=== PATIENT | female | born 1990 | race Caucasian/White ===

== ENCOUNTER 2023-08-12 20:22 | Outpatient (REF) | payer OTHER, SELFPAY ==
[2023-08-16 11:11] LABS: Age Gdln ACOG Testing Note (.); HPV Aptima Negative (Negative); IGP, Aptima HPV, rfx 16/18,45 Note (.)
== END 2023-08-12 20:23 | disposition home or self-care (01) ==
LOC: LAB 20:22
PROVIDERS: Visit Provider Obstetrics & Gynecology
DX: Z01.419 Encounter for gynecological examination (general) (routine) without abnormal findings (principal)
CPT/HCPCS: 87624; G0145

== ENCOUNTER 2023-08-20 14:59 | Outpatient (OUT) | payer OTHER, SELFPAY ==
--- NOTE | 2023-08-20 15:08 | US_ITS ---
[address] [address] Patient Name: RAJ WAITE MRN: [id number] date: 1990 Sex: F Assigned Patient Location: [facility] Current Patient Location: [facility] Accession/Order Number: [id number] Exam Date: 08/20/2023 15:08 Report Date: 08/20/2023 15:39 At the request of: AROLDO JOHNSON Procedure: US pelvis transvaginal EXAMINATION: US pelvis transvaginal HISTORY: PELVIC PAIN IUD PLACEMENT COMPARISON: No relevant comparison available. FINDINGS: The uterus is normal in size and contour measuring 6.6 x 3.5 x 5.2 cm, retroverted, retroflexed. Heterogeneous echotexture with no focal mass The endometrium measures 4 mm, normal. Linear hyperechogenicity within the endometrial cavity with ringdown artifact consistent with a normally positioned IUD The right ovary is normal measuring 2.9 x 1.3 x 2.3 cm. Color and Doppler flow The left ovary is normal measuring 2.8 x 1.4 x 3.0 cm. Normal color Doppler flow US/US pelvis transvaginal IMPRESSION: Normal position of IUD Electronically authenticated by: EDWARDO CHARLTON Date: 08/20/2023 15:39
== END 2023-08-20 15:00 | disposition home or self-care (01) ==
LOC: NOMS 14:59
PROVIDERS: Visit Provider Obstetrics & Gynecology
DX: N94.6 Dysmenorrhea, unspecified (principal); R10.2 Pelvic and perineal pain; Z97.5 Presence of (intrauterine) contraceptive device
CPT/HCPCS: 76830

== ENCOUNTER 2024-09-07 20:42 | Outpatient (REF) | payer OTHER, SELFPAY ==
--- OUTSIDE RECORDS SUMMARY | 2024-09-07 20:46 | XMS_ITS | CCD ---
Author Organization [facility] Care Team Providers Care Zoology Technical Officer Name Role Phone DR AROLDO HENDRIX Admitting Unavailable RUMA, DR KENDRICK Attending Unavailable RUMA, DR KENDRICK Consulting Unavailable RUMA, DR KENDRICK Admitting Unavailable RUMA, DR KENDRICK Attending Unavailable RUMA, DR KENDRICK Consulting Unavailable AROLDO HENDRIX Attending Unavailable SUHA Cleary Attending Provider SUHA Landa Attending Provider Annabella Landa APRN Attending Provider [phone] Irma Perez MD Primary Care Provider [phone] Annabella Landa APRN Attending Provider Irma Perez MD [facility] Care Provider Elenita Cleary APRN Attending Provider [phone] Elenita Cleary Admitting Unavailable Elenita Cleary Attending Unavailable Annabella Landa Admitting Unavailable Annabella Landa Attending Unavailable Irma Perez Primary Care Unavailable Annabella Landa Admitting Unavailable Annabella Landa Attending Unavailable Elenita Cleary Attending Unavailable Elenita Cleary Admitting Unavailable Irma Perez MD Primary Care Provider [phone] Allergies Allergy Classification Reported Allergen(s) Allergy Type Date of Onset Reaction(s) Facility (1 source) Penicillin Drug Allergy 5 [facility] Repository (3 sources) nickel sulfate Drug Allergy 9 [facility] Work Phone: (3 sources) Penicillin G Drug Allergy 4 [facility] (3 sources) Penicillins Drug Intolerance 9 [facility] Medications Current Medications Medication Drug Class(es) Dates Sig (Normalized) Sig (Original) ascorbic acid 100 mg chewable tablet (3 sources) Vitamin C ascorbic acid (Vitamin C) 100 MG chewable tablet Vitamin C Active ascorbic acid 60 mg / beta carotene 5000 unt / copper sulfate 40 mg / dl-alpha tocopheryl acetate 30 unt / sodium selenite 0.04 mg / zinc oxide 40 mg oral tablet (3 sources) Vitamin C Multiple Vitamin (Multivitamin Adult) tablet 1 (one) time each day at the same time Active calcium citrate 1500 mg / cholecalciferol 200 unt oral tablet (3 sources) Vitamin D Calcium Citrate-Vitamin D (Calcium + D) 315-5 MG-MCG tablet Calcium + D Active fluconazole 150 mg oral tablet (6 sources) Azole Antifungal Start: 08-22-2024 take 1 tablet by mouth once daily Fluconazole 150 mg tablet Active 150 MG PO Daily 2 August 22, 2024 12:00am May repeat dose in 3 days if symptoms persist. Start: 07-11-2024 End: 08-22-2024 Fluconazole 150 mg tablet Di scontinued 150 MG PO Q3D 2 0 July 11, 2024 1:00am August 22, 2024 12:11pm october repeat x 1 in 3 days if needed levonorgestrel 0.903683 mg/hr intrauterine system (11 sources) Progestin, Progestin-containing Intrauterine Device Start: 11-18-2023 Levonorgestrel (Mirena) 21 mcg/24 hr (8 yrs) 52 mg intrauterine device Active INTRAUTERI November 18, 2023 12:00am Levonorgestrel ( Mirena, 52 MG,) 20 MCG/DAY intrauterine device as directed Intrauterine Active metroNIDAZOLE 500 mg oral tablet (2 sources) Nitroimidazole Antimicrobial Start: 09-07-2024 End: 09-14-2024 take 1 tablet by mouth in the morning metroNIDAZOLE (Flagyl) 500 MG tablet Indications: Bacterial vaginosis Take 1 tablet (500 mg) by mouth in the morning and 1 tablet (500 mg) before bedtime. Do all this for 7 days. Do not drink alcohol while taking this medication. 14 tablet 09/07/2024 09/14/2024 Active Multiple Vitamins-Minerals (Multivitamin Adult, Minerals,) tablet (3 sources) Multiple Vitamins-Minerals (Multivitamin Adult, Minerals,) tablet Take by mouth Daily Active Completed/Discontinued Medications Medication Drug Class(es) Dates Sig (Normalized) Sig (Original) nitrofurantoin, macrocrystals 25 mg / nitrofurantoin, monohydrate 75 mg oral capsule (8 sources) Nitrofuran Antibacterial Start: 11-18-2023 End: 12-28-2023 take 1 capsule by mouth every twelve hours at mealtime Nitrofurantoin Monohyd/M-Cryst (Macrobid) 100 mg capsule Discontinued 100 MG PO Every 12 hours 14 November 18, 2023 12:00am December 28, 2023 2:02pm must administer with a meal/food phenazopyridine hydrochloride 200 mg oral tablet (6 sources) Start: 12-28-2023 End: 07-11-2024 take 1 tablet by mouth three times daily as needed for pain Phenazopyridine (Pyridium) 200 mg tablet Discontinued 200 MG PO Three times daily as needed for pain 9 December 28, 2023 12:00am July 11, 2024 3:16pm sulfamethoxazole 800 mg / trimethoprim 160 mg oral tablet (6 sources) Dihydrofolate Reductase Inhibitor Antibacterial, Sulfonamide Antimicrobial Start: 12-28-2023 End: 07-11-2024 take 1 tablet by mouth every twelve hours Sulfamethoxazole-Tr imethoprim 800-160 mg tablet Discontinued 1 TAB PO Every 12 hours 14 December 28, 2023 12:00am July 11, 2024 3:16pm Problems Active Problems Problem Classification Problem Date Documented Date Episodic/Chronic Immunizations and screening for infectious disease (4 sources) Encounter for screening for human papillomavirus (HPV); Translations: [Encounter for screening for infections with a predominantly sexual mode of transmission] Onset: 09-01-2021 09-07-2024 Episodic Inflammatory diseases of female pelvic organs (2 sources) Bacterial vaginosis; Translations: [Acute vaginitis] 09-07-2024 Episodic Mycoses (2 sources) Mycosis; Translations: [Candidiasis, unspecified] 09-07-2024 Episodic Other female genital disorders (10 sources) Other specified noninflammatory disorders of vagina; Translations: [Leukorrhea, not specified as infective] Onset: 08-29-2021 Episodic Other female genital disorders (3 sources) Vaginal discharge; Translations: [Other specified noninflammatory disorders of vagina] 07-11-2024 Episodic Other screening for suspected conditions (not mental disorders or infectious disease) (4 sources) Encounter for screening for malignant neoplasm of cervix; Translations: [ENC SCREENING MALIG NEOPLASM CERV] Onset: 07-16-2022 Episodic Urinary tract infections (13 sources) Urinary tract infectious disease; Translations: [Urinary tract infection, site not specified] Onset: 07-11-2024 11-18-2023 Episodic Past or Other Problems Problem Classification Problem Date Documented Da te Episodic/Chronic Genitourinary symptoms and ill-defined conditions (6 sources) Unspecified abnormal findings in urine; Translations: [Other nonspecific findings on examination of urine] Onset: 11-18-2023 11-18-2023 Episodic Results Test Name Value Interpretation Reference Range Facility Urinalysis macro (dipstick) panel (U)on 09-07-2024 Bilirubin, UA Negative Negative - 4(70) +++ mg/dL [facility] Blood, UA Positive Negative - 50 Hema/mcL [facility] Comment on above: trace Clarity, UA Clear [facility] Color, UA Yellow [facility] Glucose, UA Negative Negative - 2000(110) ++++ mg/dL [facility] Interpretation and review of laboratory results Normal [facility] Ketones, UA Negative Negative - 160(16) ++++ mg/dL [facility] Leukocytes, UA Negative Negative - 500+++ Francesca/mcL [facility] Nitrite, UA Negative Negative - Positive [facility] pH, UA 5.5 5 - 9 [facility] Protein, UA Negative Negative - 2000(20) ++++ mg/dL [facility] Spec Grav, UA 1.02 1 - 1.03 [facility] Urobilinogen, UA 0.2 0.2 - 12 mg/dL [facility] Vaginitis Plus (VG+)on 08-22 Atopobium Vaginae Low - 0 Normal . [facility] Comment on above: Result Comment: This test was developed and its performance characteristics determined by [employer]. It has not been cleared or approved by the Food and Drug Administration. Performed By: #### V AGINITIS+ #### [facility] , BVAB2 Low - 0 Normal . [facility] Comment on above: Result Comment: This test was developed and its performance characteristics determined by [facility]. It has not been cleared or approved by the Food and Drug Administration. Performed By: #### V AGINITIS+ #### [facility] , Kitty Albicans, ANDRADE Negative Normal Negative [facility] Comment on above: Result Comment: This test was developed and its performance characteristics determined by [facility]. It has not been cleared or approved by the Food and Drug Administration. Performed By: #### V AGINITIS+ #### [facility] , Kitty Glabrata, ANDRADE Negative Normal Negative [facility] Comment on above: Result Comment: This test was developed and its performance characteristics determined by [facility]. It has not been cleared or approved by the Food and Drug Administration. PERFORMED BY: [place] [id number] [place] [address]PERATOR BRYAN JONES M.D. Performed By: #### V AGINITIS+ #### [facility] , Chlamydia Trachomotis, ANDRADE Negative Normal Negative [facility] Comment on above: Performed By: #### V AGINITIS+ #### [facility] , Megasphaera Low - 0 Normal . [facility] Comment on above: Result Comment: This test was developed and its performance characteristics determined by [facility]. It has not been cleared or approved by the Food and Drug Administration. Calculate total score by adding the 3 individual bacterial vaginosis (BV) marker scores together. Total score is interpreted as follows: Total score 0-1: Indicates the absence of BV. Total score 2: Indeterminate for BV. Additional clinical data should be evaluated to establish a diagnosis. Total score 3-6: Indicates the presence of BV. Performed By: #### V AGINITIS+ #### [facility] , Neisseria Gonorrhoeae, ANDRADE Negative Normal Negative [facility] Comment on above: Result Comment: Perf ormed at: =G - [facility] [address] [id number] Gis Software Engineer: Mary Jacinto MD, Phone: [phone] Performed By: #### V AGINITIS+ #### [facility] , Tric Vag ANDRADE Negative Normal Negative [facility] Comment on above: Performed By: #### V AGINITIS+ #### [facility] , Laboratory - Microbiology an d Antimicrobial susceptibilityOrdered By: Annabella Landa on 07-11-2024 N. gonorrhoeae DNA ANDRADE+probe Ql (Unsp spec) Negative Negative [facility] Comment on above: Performed at: [address] [id number] Director: Mary Jacinto MD, Phone: [phone] No Panel InformationOrdered By: Annabella Landa on 07-11-2024 Kitty albicans (ANDRADE) Negative Negative [facility] Comment on above: This test was develo ped and its performance characteristicsdetermined by [employer]. It has not been cleared orapproved by the Food and Drug Administration. Kitty glabrata (ANDRADE) Negative Negative [facility] Comment on above: This test was develo ped and its performance characteristicsdetermined by [employer]. It has not been cleared orapproved by the Food and Drug Administration. Chlamydia trachomatis (ANDRADE) (LAB) Negative Negative [facility] Trichomonas vaginalis (ANDRADE) Negative Negative [facility] Vaginal fluid Atopobium vagi kinga DNA detection by probe and target amplification methoOrdered By: Annabella Landa on 07-11-2024 A. vaginae DNA ANDRADE+probe Ql (Vag fld) Vaginal fluid Atopobium vaginae DNA detection by probe and target amplification metho . [facility] Comment on above: This test was develo ped and its performance characteristicsdetermined by [employer]. It has not been cleared orapproved by the Food and Drug Administration. Vaginal fluid Megasphaera sp ecies type 1 DNA detection by probe and target amplificatOrdered By: Annabella Landa on 07-11-2024 Megasphaera sp type 1 DNA ANDRADE+probe Ql (Vag fld) Vaginal fluid Megasphaera species type 1 DNA detection by probe and target amplificat . [facility] Comment on above: This test was develo ped and its performance characteristicsdetermined by [facility]. It has not been cleared orapproved by the Food and Drug Administration.Calculate total score by adding the 3 individual bacterialvaginosis (BV) marker scores together. Total score isinterpreted as follows:Total score 0-1: Indicates the absence of BV.Total score 2: Indeterminate for BV. Additional clinical data should be evaluated to establish a diagnosis.Total score 3-6: Indicates the presence of BV. Vaginal fluid bacterial vagi nosis associated bacterium 2 DNA detection by probe and tOrdered By: Annabella Landa on 07-11-2024 Bacterial vaginosis associated bacterium 2 DNA ANDRADE+probe Ql (Vag fld) Vaginal fluid bacterial vaginosis associated bacterium 2 DNA detection by probe and t . [facility] Comment on above: This test was develo ped and its performance characteristicsdetermined by [facility]. It has not been cleared orapproved by the Food and Drug Administration. Vaginitis Plus (VG+)on 07-11 Atopobium Vaginae Low - 0 Normal . [facility] Comment on above: Result Comment: This test was developed and its performance characteristics determined by [facility]. It has not been cleared or approved by the Food and Drug Administration. Performed By: #### V AGINITIS+ #### [facility] , BVAB2 Low - 0 Normal . [facility] Comment on above: Result Comment: This test was developed and its performance characteristics determined by [facility]. It has not been cleared or approved by the Food and Drug Administration. Performed By: #### V AGINITIS+ #### [facility] , Kitty Albicans, ANDRADE Negative Normal Negative [facility] Comment on above: Result Comment: This test was developed and its performance characteristics determined by [facility]. It has not been cleared or approved by the Food and Drug Administration. Performed By: #### V AGINITIS+ #### [facility] , Kitty Glabrata, ANDRADE Negative Normal Negative [facility] Comment on above: Result Comment: This test was developed and its performance characteristics determined by [facility]. It has not been cleared or approved by the Food and Drug Administration. PERFORMED BY: [place] [address] [place] [address] OPERATOR BRYAN JONES M.D. Performed By: #### V AGINITIS+ #### [facility] , Chlamydia Trachomotis, ANDRADE Negative Normal Negative [facility] Comment on above: Performed By: #### V AGINITIS+ #### [facility] , Megasphaera Low - 0 Normal . [facility] Comment on above: Result Comment: This test was developed and its performance characteristics determined by [facility]. It has not been cleared or approved by the Food and Drug Administration. Calculate total score by adding the 3 individual bacterial vaginosis (BV) marker scores together. Total score is interpreted as follows: Total score 0-1: Indicates the absence of BV. Total score 2: Indeterminate for BV. Additional clinical data should be evaluated to establish a diagnosis. Total score 3-6: Indicates the presence of BV. Performed By: #### V AGINITIS+ #### [facility] , Neisseria Gonorrhoeae, ANDRADE Negative Normal Negative [facility] Comment on above: Result Comment: Perf ormed at: =G - [facility] [id number] Gis Software Engineer: Mary Jacinto MD, Phone: [phone] Performed By: #### V AGINITIS+ #### [facility] , Tric Vag ANRDADE Negative Normal Negative [facility] Comment on above: Performed By: #### V AGINITIS+ #### [facility] , Urine Cultureon 12-28-2023 Bacteria identified Cx Nom (U) ORGANISM: Escherichia coli (O:ESCCOL) [place] Count >100,000 Aerobic APRIL Charge (NMIC56) SUSCEPTIBILITY ORGANISM: O:ESCCOL ANTIBIOTIC INTERPRETATION APRIL Amikacin S <16 Amoxacillin/K Clavulanate S <8 Ampicillin R >16 Ampicillin/Sulbactam I 1616/8 Aztreonam S <4 Cefazolin S <2 Cefepime S <2 Ceftazidime S <1 Ceftazidime/Avibactam S <4 Ceftolozane/Tazobactam S <2 Ceftriaxone S <1 Cefuroxime S <4 Ciprofloxacin S <0.25 Ertapenem S <0.5 Gentamicin S <2 Levofloxacin S <0.5 Meropenem S <1 Meropenem/Vaborbactam S <2 Nitrofurantoin S <32 Piperacillin/Tazobactam S <8 Tetracycline S <4 Tigecycline S <2 Tobramycin S <2 Trimethoprim/Sulfamethoxaz ole S <0.5 S = SUSCEPTIBLE I = INTERMEDIATE R = RESISTANT BLANK = DATA NOT AVAILABLE, OR DRUG NOT ADVISABLE OR TESTED R* = RESISTANCE DUE TO EXTENDED SPECTRUM BETA-LACTAMASES ESBL = EXTENDED SPECTRUM BETA-LACTAMASE TFG = THYMIDINE-DEPENDENT STRAIN KVNG = BETA-LACTAMASE POSITIVE IB = INDUCIBLE BETA-LACTAMASE. APPEARS IN PLACE OF 'S' WITH SPECIES KNOWN TO POSSESS INDUCIBLE BETA-LACTAMASES. POTENTIALLY THEY MAY BECOME RESISTANT TO ALL B-LACTAM DRUGS. PERFORMED BY: [place] [address]PERATOR JEANNETTE MARRERO M.D. Normal [facility] Comment on above: Performed By: #### C UU #### [address] Bacteria Vaginosis, NAAon Atopobium Vaginae Low - 0 Normal . [facility] Comment on above: Result Comment: This test was developed and its performance characteristics determined by [facility]. It has not been cleared or approved by the Food and Drug Administration. Performed By: #### C UU #### [place] [address] [place] #### VAGINOSIS #### [facility] , BVAB2 Low - 0 Normal . [facility] Comment on above: Result Comment: This test was developed and its performance characteristics determined by [facility]. It has not been cleared or approved by the Food and Drug Administration. Performed By: #### C UU #### [facility] [address] [place] [address] #### VAGINOSIS #### [facility] , Megasphaera Low - 0 Normal . [facility] Comment on above: Result Comment: This test was developed and its performance characteristics determined by [facility]. It has not been cleared or approved by the Food and Drug Administration. Calculate total score by adding the 3 individual bacterial vaginosis (BV) marker scores together. Total score is interpreted as follows: Total score 0-1: Indicates the absence of BV. Total score 2: Indeterminate for BV. Additional clinical data should be evaluated to establish a diagnosis. Total score 3-6: Indicates the presence of BV. Performed at: =[facility] [id number] Gis Software Engineer: Mary Jacinto MD, Phone: [phone] PERFORMED BY: [place] [address] OPERATOR JEANNETTE MARRERO M.D. Performed By: #### C UU #### [facility] [address] [place] [address] #### VAGINOSIS #### [facility] , Laboratory - Chemistry and C hemistry - challengeon 11-18-2023 Bilirubin Ql (U) Negative [facility] Glucose (U) [Mass/Vol] Negative [facility] Ketones Ql (U) Positive [facility] pH (U) 6.0 [pH] [facility] Specific gravity (U) [Rel density] 1.010 [facility] Urobilinogen (U) [Mass/Vol] 0.2 mg/dL [facility] Laboratory - Specimen inform ationon 11-18-2023 Appearance (U) cloudy [facility] Color (U) yellow [facility] Laboratory - Urinalysison Leukocyte esterase Test strip Ql (U) large [facility] Nitrite Ql (U) Negative [facility] Protein Ql (U) Negative [facility] No Panel Informationon 11-17 Urine Occult Blood trace [facility] Urine Cultureon 11-18-2023 Bacteria identified Cx Nom (U) ORGANISM: Escherichia coli (O:ESCCOL) [place] Count >100,000 Aerobic APRIL Charge (NMIC56) SUSCEPTIBILITY ORGANISM: O:ESCCOL ANTIBIOTIC INTERPRETATION APRIL Amikacin S <16 Amoxacillin/K Clavulanate S <8 Ampicillin S <8 Ampicillin/Sulbactam S <4 Aztreonam S <4 Cefazolin S <2 Cefepime S <2 Ceftazidime S <1 Ceftazidime/Avibactam S <4 Ceftolozane/Tazobactam S <2 Ceftriaxone S <1 Cefuroxime S <4 Ciprofloxacin S <0.25 Ertapenem S <0.5 Gentamicin S <2 Levofloxacin S <0.5 Meropenem S <1 Meropenem/Vaborbactam S <2 Nitrofurantoin S <32 Piperacillin/Tazobactam S <8 Tetracycline S <4 Tigecycline S <2 Tobramycin S <2 Trimethoprim/Sulfamethoxaz ole S <0.5 S = SUSCEPTIBLE I = INTERMEDIATE R = RESISTANT BLANK = DATA NOT AVAILABLE, OR DRUG NOT ADVISABLE OR TESTED R* = RESISTANCE DUE TO EXTENDED SPECTRUM BETA-LACTAMASES ESBL = EXTENDED SPECTRUM BETA-LACTAMASE TFG = THYMIDINE-DEPENDENT STRAIN KVNG = BETA-LACTAMASE POSITIVE IB = INDUCIBLE BETA-LACTAMASE. APPEARS IN PLACE OF 'S' WITH SPECIES KNOWN TO POSSESS INDUCIBLE BETA-LACTAMASES. POTENTIALLY THEY MAY BECOME RESISTANT TO ALL B-LACTAM DRUGS. PERFORMED BY: [place] [address]PERATOR JEANNETTE MARRERO M.D. Normal [facility] Comment on above: Performed By: #### C UU #### [place] [address] [place] #### VAGINOSIS #### [facility] , Urine culture routineOrdered By: Elenita Cleary on 11-18-2023 Bacteria identified Cx Nom (U) Escherichia coli Abnormal [facility] Vaginal fluid Atopobium vagi kinga DNA detection by probe and target amplification methoOrdered By: Elenita Cleary on 11-18-2023 A. vaginae DNA ANDRADE+probe Ql (Vag fld) Low - 0 Score . [facility] Comment on above: This test was develo ped and its performance characteristicsdetermined by [facility]. It has not been cleared orapproved by the Food and Drug Administration. Vaginal fluid Megasphaera sp ecies type 1 DNA detection by probe and target amplificatOrdered By: Elenita Cleary on 11-18-2023 Megasphaera sp type 1 DNA ANDRADE+probe Ql (Vag fld) Low - 0 Score . [facility] Comment on above: This test was develo ped and its performance characteristicsdetermined by [employer]. It has not been cleared orapproved by the Food and Drug Administration.Calculate total score by adding the 3 individual bacterialvaginosis (BV) marker scores together. Total score isinterpreted as follows:Total score 0-1: Indicates the absence of BV.Total score 2: Indeterminate for BV. Additional clinical data should be evaluated to establish a diagnosis.Total score 3-6: Indicates the presence of BV.Performed at: =[address] [id number] Director: Mary Jacinto MD, Phone: [phone] Vaginal fluid bacterial vagi nosis associated bacterium 2 DNA detection by probe and tOrdered By: Elenita Cleary on 11-18-2023 Bacterial vaginosis associated bacterium 2 DNA ANDRADE+probe Ql (Vag fld) Low - 0 Score . [facility] Comment on above: This test was develo ped and its performance characteristicsdetermined by [employer]. It has not been cleared orapproved by the Food and Drug Administration. PAP ACOG PANEL 2: 30 to 65on 07-23-2022 . . Normal [facility] Comment on above: Result Comment: Perf ormed at: WB Performed By: #### [id number] #### [facility] [address] [place] [address] Dr. Zheng Knowles Age Gdln ACOG Testing 30-65 Normal [facility] Comment on above: Performed By: #### [id number] #### [facility] [address] [place] [address] Dr. Zheng Knowles DIAGNOSIS: Comment Normal [facility] Comment on above: Result Comment: NEGA TIVE FOR INTRAEPITHELIAL LESION OR MALIGNANCY. Performed at: WB Performed By: #### [id number] #### [facility] [address] [place] [address] Dr. Zheng Knowles HPV Aptima Negative Normal Negative [facility] Comment on above: Result Comment: This nucleic acid amplification test detects fourteen high-risk HPV types (16,18,31,33,35,39,45,51,52,56,58,59,66,68) without differentiation. Performed at: =G Performed By: #### [id number] #### [facility] [address] [place] [address] Dr. Zheng Knowles HPV Genotype Reflex Comment Normal [facility] Comment on above: Result Comment: Crit eria not met, HPV Genotype not performed. Performed at: WB Performed By: #### [id number] #### [facility] [address] [place] [address] Dr. Zheng Knowles Methodology: Comment Normal [facility] Comment on above: Result Comment: This liquid based ThinPrep(R) pap test was screened with the use of an image guided system. Performed at: WB Performed By: #### [id number] #### [facility] [address] [place] [address] Dr. Zheng Knowles Note: Comment Normal [facility] Comment on above: Result Comment: The Pap smear is a screening test designed to aid in the detection of premalignant and malignant conditions of the uterine cervix. It is not a diagnostic procedure and should not be used as the sole means of detecting cervical cancer. Both false-positive and false-negative reports do occur. . Performed at: WB Performed By: #### [id number] #### [facility] [address] [place] [address] Dr. Zheng Knowles Performed by: Comment Normal [facility] Comment on above: Result Comment: Valerio Zavala, Hogshead Stock Clerk (ASCP) Performed at: WB Performed By: #### [id number] #### [facility] [address] [place] [address] Dr. Zheng Knowles Specimen adequacy: Comment Normal [facility] Comment on above: Result Comment: Sati sfactory for evaluation. Endocervical and/or squamous metaplastic cells (endocervical component) are present. Performed at: WB Performed By: #### [id number] #### [facility] [address] [place] [address] Dr. Zheng Knowles CHLAMYDIA/GONOCOCCUS ANDRADE ( AB/URINE/PAPon 09-01-2021 Chlamydia trachomatis, ANDRADE Negative Normal Negative [facility] Comment on above: Performed By: #### C T/NGNA #### [facility] [address] [place] [address] Dr. Zheng Knowles Neisseria gonorrhoeae, ANDRADE Negative Normal Negative [facility] Comment on above: Performed By: #### C T/NGNA #### [facility] [address] [place] [address] Dr. Zheng Knowles VAGINITIS/VAGINOSIS DNA PROB Dylan 08-31-2021 Kitty species Positive Abnormal Negative [facility] Comment on above: Performed By: #### V AGINT #### [facility] [address] [place] [address] Dr. Zheng Knowles Gardnerella vaginalis Negative Normal Negative [facility] Comment on above: Performed By: #### V AGINT #### [facility] [address] [place] [address] Dr. Zheng Knowles Trichomonas vaginalis Negative Normal Negative [facility] Comment on above: Performed By: #### V AGINT #### [facility] [address] [place] [address] Dr. Zheng Knowles Vital Signs Date Time Vital Sign Value Performing Clinician Facility 09-07-2024 16:06-0400 Body mass index (BMI) [Ratio] 27.12 kg/m2 [employer] Work Phone: [facility] 09-07-2024 16:06-0400 Body weight 73.94 kg Aroldo Ruma DO Work Phone: [facility] 09-07-2024 16:06-0400 Diastolic blood pressure 70 mm[Hg] Aroldo Ruma DO Work Phone: [facility] 09-07-2024 16:06-0400 Systolic blood pressure 116 mm[Hg] Aroldo Ruma DO Work Phone: [facility] 08-22-2024 12:16-0400 Body height 165.1 cm Irma Perez MD Work Phone: [facility] 08-22-2024 12:16-0400 Body mass index (BMI) [Ratio] 0.8 kg/m2 Irma Perez MD Work Phone: [facility] 08-22-2024 12:16-0400 Body temperature 97.7 [degF] Irma Perez MD Work Phone: [facility] 08-22-2024 12:16-0400 Body weight 2.4 kg Irma Perez MD Work Phone: [facility] 08-22-2024 12:16-0400 Diastolic blood pressure 69 mm[Hg] Irma Perez MD Work Phone: [facility] 08-22-2024 12:16-0400 Heart rate 63 /min Irma Perez MD Work Phone: [facility] 08-22-2024 12:16-0400 Respiratory rate 18 /min Irma Perez MD Work Phone: [facility] 08-22-2024 12:16-0400 SaO2% (BldA) [Mass fraction] 99 % Irma Perez MD Work Phone: [facility] 08-22-2024 12:16-0400 Systolic blood pressure 103 mm[Hg] Irma Perez MD Work Phone: [facility] 07-11-2024 14:16-0500 Body height 165.1 cm [facility] 07-11-2024 14:16-0500 Body mass index (BMI) [Ratio] 25.9 kg/m2 [facility] 07-11-2024 14:16-0500 Body temperature 97.9 [degF] [facility] 07-11-2024 14:16-0500 Body weight 70.87 kg [facility] 07-11-2024 14:16-0500 Diastolic blood pressure 81 mm[Hg] [facility] 07-11-2024 14:16-0500 Heart rate 75 /min [facility] 07-11-2024 14:16-0500 Respiratory rate 19 /min [facility] 07-11-2024 14:16-0500 SaO2% (BldA) [Mass fraction] 97 % [facility] 07-11-2024 14:16-0500 Systolic blood pressure 121 mm[Hg] [facility] 12-28-2023 14:13-0400 Body height 165.1 cm EXHIBITIONS CURATOR Elenita Madiha Work Phone: [facility] 12-28-2023 14:13-0400 Body mass index (BMI) [Ratio] 25.7 kg/m2 EXHIBITIONS CURATOR Elenita Madiha Work Phone: [facility] 12-28-2023 14:13-0400 Body temperature 97.6 [degF] EXHIBITIONS CURATOR Elenita Madiha Work Phone: [facility] 12-28-2023 14:13-0400 Body weight 70.3 kg EXHIBITIONS CURATOR Elenita Madiha Work Phone: [facility] 12-28-2023 14:13-0400 Heart rate 60 /min EXHIBITIONS CURATOR Elenita Madiha Work Phone: [facility] 12-28-2023 14:13-0400 Respiratory rate 18 /min EXHIBITIONS CURATOR Elenita Madiha Work Phone: [facility] 12-28-2023 14:13-0400 SaO2% (BldA) [Mass fraction] 99 % EXHIBITIONS CURATOR Elenita Madiha Work Phone: [facility] 11-18-2023 16:34-0400 Body height 165.1 cm [facility] 11-18-2023 16:34-0400 Body mass index (BMI) [Ratio] 25 kg/m2 [facility] 11-18-2023 16:34-0400 Body temperature 98.2 [degF] [facility] 11-18-2023 16:34-0400 Body weight 68.03 kg [facility] 11-18-2023 16:34-0400 Heart rate 86 /min [facility] 11-18-2023 16:34-0400 Respiratory rate 18 /min [facility] 11-18-2023 16:34-0400 SaO2% (BldA) [Mass fraction] 99 % [facility] Encounters Encounter Date Encounter Type Care Provider Facility Start: 09-07-2024 End: 09-07-2024 Patient encounter procedure Aroldo Ruma DO Work Phone: [facility] Start: 09-07-2024 End: 09-07-2024 Periodic preventive med est patient 18-39 yrs Aroldo Ruma DO Work Phone: [facility] Comment on above: Bacterial vaginosis (Primary Dx); Well woman exam with routine gynecological exam; Possible exposure to STI; Yeast infection Start: 09-07-2024 End: 09-07-2024 Bamboo flowsheet Aroldo Ruma DO Work Phone: [facility] Start: 09-07-2024 End: 09-07-2024 Bamboo flowsheet Aroldo Ruma DO Work Phone: [facility] Start: 08-22-2024 End: 08-22-2024 Departed Referred Irma Perez MD Work Phone: [facility] [place] Work Phone: Start: 08-22-2024 End: 08-22-2024 ambulatory Irma Perez MD Work Phone: [facility] Work Phone: Start: 08-22-2024 End: 08-22-2024 Patient encounter procedure Irma Perez MD Work Phone: [facility] [place] Work Phone: Start: 07-11-2024 End: 07-11-2024 Departed Referred Irma Perez MD Work Phone: [facility] [place] Work Phone: Start: 07-11-2024 End: 07-11-2024 ambulatory Irma Perez MD Work Phone: [facility] Work Phone: Start: 07-11-2024 End: 07-11-2024 Patient encounter procedure [facility] [place] Work Phone: Start: 12-28-2023 End: 12-28-2023 Departed Referred EXHIBITIONS CURATOR Elenita Madiha Work Phone: [facility] [place] Work Phone: Start: 12-28-2023 End: 12-28-2023 ambulatory Annabella Landa [facility] Work Phone: Start: 12-28-2023 End: 12-28-2023 Patient encounter procedure EXHIBITIONS CURATOR Elenita Madiha Work Phone: [facility] [place] Work Phone: Start: 11-18-2023 End: 11-18-2023 Departed Referred EXHIBITIONS CURATOR Elenita Madiha Work Phone: [facility] [place] Work Phone: Start: 11-18-2023 End: 11-18-2023 ambulatory Elenita Cleary [facility] Work Phone: Start: 11-18-2023 End: 11-18-2023 Patient encounter procedure [facility] Work Phone: Start: 08-20-2023 End: 08-21-2023 ambulatory AROLDO HENDRIX Not Available Start: 08-12-2023 End: 08-12-2023 ambulatory AROLDO HENDRIX Not Available Start: 07-16-2022 End: 07-16-[address] AROLDO HENDRIX Facility:[facility] Start: 08-29-2021 End: 08-29-[address] AROLDO HENDRIX Facility:[facility] Procedures Date Procedure Procedure Detail Performing Clinician Start: 09-07-2024 Urnls dip stick/tablet rgnt non-auto w/o micrscp Aroldo Hendrix DO Work Phone: Start: 11-18-2023 Urine culture EXHIBITIONS CURATOR Elenita Cleary Work Phone: History of tonsillectomy History of tonsi llectomy Plan of Treatment Date Care Activity Detail Author Start: 09-14-2025 End: 09-14-2025 Patient encounter procedure 09/14/2025 8:30 AM EDT Office Visit [facility] [address] [place] [id number] Aroldo Hendrix DO [address] [place], [place] [id number] [facility] Start: 09-07-2024 End: 09-07-2024 Patient encounter procedure 09/07/2024 3:40 PM EDT Office Visit [facility] [address] [place] [id number] Aroldo Hendrix, DO [address] [place], [facility] Arrived [facility] Comment on above: Arrived Start: 08-22-2024 [facility] Start: 07-11-2024 [facility] Start: 02-09-2024 Influenza vaccination Influenza Vacc ine (#1) [facility] Start: 12-28-2023 Bacteria identified in Urine by Culture [facility] Start: 11-19-2023 Bacteria identified in Urine by Culture [facility] Start: 11-19-2023 [facility] Start: 11-18-2023 Bacteria identified in Urine by Culture [facility] Start: 2019 Screening for malign ant neoplasm of cervix [facility] Start: 2010 Screening for malign ant neoplasm of cervix Pap Smear [facility] Atopobium vaginae DN A [Presence] in Vaginal fluid by ANDRADE with probe detection [facility] Atopobium vaginae DN A [Presence] in Vaginal fluid by ANDRADE with probe detection [facility] Atopobium vaginae DN A [Presence] in Vaginal fluid by ANDRADE with probe detection [facility] Bacteria identified in Urine by Culture [facility] Bacterial vaginosis associated bacterium 2 DNA [Presence] in Vaginal fluid by ANDRADE with probe detection [facility] Bacterial vaginosis associated bacterium 2 DNA [Presence] in Vaginal fluid by ANDRADE with probe detection [facility] Bacterial vaginosis associated bacterium 2 DNA [Presence] in Vaginal fluid by ANDRADE with probe detection [facility] Cytology Cervical or vaginal smear or scraping study Pap Smear Pathology and Cytology Routine Well woman exam with routine gynecological exam Ordered: 09/07/2024 [facility] Work Phone: Comment on above: Ordered: 09/07/2024 Human papilloma viru s DNA [Presence] in Unspecified specimen by Probe with amplification HPV DNA probe, amplified Microbiology Routine Well woman exam with routine gynecological exam Ordered: 09/07/2024 [facility] Comment on above: Ordered: 09/07/2024 Megasphaera sp type 1 DNA [Presence] in Vaginal fluid by ANDRADE with probe detection [facility] Megasphaera sp type 1 DNA [Presence] in Vaginal fluid by ANDRADE with probe detection [facility] Megasphaera sp type 1 DNA [Presence] in Vaginal fluid by ANDRADE with probe detection [facility] Immunizations Immunization Date Immunization Notes Care Provider Howard barahona 06-12-2024 influenza virus vacc ine, unspecified formulation Aroldo Hendrix DO Work Phone: [facility] Payers Date Payer Category Payer Self-pay [id number] 2023 Private Health Insurance [facility] [id number] 1989 Unknown [id number] 1989 Unknown [id number] 1989 Unknown [id number] 1989 Unknown [id number] 1959 Unknown [id number] 1959 Unknown [id number] Unknown [id number] Unknown [id number] .[id number] Unknown [id number] .[id number] Unknown [id number] Worker's Compensation [facility] [id number] Social History Date Type Detail Facility Start: 06-27-2023 End: 11-18-2023 Tobacco smoking status NHIS Never smoked tobacco (finding) [facility] Start: 1990 Sex Assigned At Female [facility] Start: 07-11-2024 End: 08-23-2024 Sex Female (finding) [facility] Start: 06-27-2023 Tobacco use and exposure Smokeless tobacco non-user [facility] Start: 06-27-2023 End: 09-07-2024 Alcoholic beverage intake Current drinker of alcohol (finding) [facility] Start: 06-27-2023 End: 09-07-2024 History of Social function [facility] Start: 06-27-2023 End: 09-07-2024 Tobacco use panel [facility] Start: 06-27-2023 Alcohol Comment occasional [facility] Start: 1990 Sex assigned at Not on file N [facility] History of Present illness Narrative 09-07-2024 Marissa Villavicencio NP - 09/07/2024 3:40 PM EDT Note Date & Type Note Facility 09-07-2024 History of Presen t illness Narrative Reason for Appointment: Patient ID: Tiffanie Lyle is a 34 y.o. female who presents for Gynecologic Exam (Pt complains of having a chronic yeast infection that does not go away completley. Pt was seen in Urgent care in Jul and August for the yeast infection. Was given diflucan at both appointments and advised at the August appt to also do the Monostat along w/the Diflucan. Pt states it got worse. Now has had thick white discharge. Pt desires to have cx's done along w/her annual. ) Patient presents today for Annual Exam. MEDICATIONS Current Outpatient Medications Medication Instructions ascorbic acid (Vitamin C) 100 MG chewable tablet Vitamin C Calcium Citrate-Vitamin D (Calcium + D) 315-5 MG-MCG tablet Calcium + D Levonorgestrel (Mirena, 52 MG,) 20 MCG/DAY intrauterine device as directed Intrauterine Multiple Vitamin (Multivitamin Adult) tablet Every 24 hours Multiple Vitamins-Minerals (Multivitamin Adult, Minerals,) tablet Oral, Daily RT ALLERGIES Allergies Allergen Reactions Nickel Penicillin G Other Reaction(s): Unknown Penicillins Other Reaction(s): Not available PROBLEMS Active Ambulatory Problems Diagnosis Date Noted No Active Ambulatory Problems Resolved Ambulatory Problems Diagnosis Date Noted No Resolved Ambulatory Problems Past Medical History: Diagnosis Date BMI 26.0-26.9,adult Cervical cancer screening Encounter for IUD insertion Encounter for repeat Pap smear due to previous insuff cervical cells Intrauterine device surveillance Migraine Vaginal itching Well woman exam HISTORY PAST MEDICAL HISTORY SOCIAL HISTORY Past Medical History: Diagnosis Date BMI 26.0-26.9,adult Cervical cancer screening Encounter for IUD insertion Encounter for repeat Pap smear due to previous insuff cervical cells Intrauterine device surveillance Migraine Vaginal itching Well woman exam Social History Tobacco Use Smoking status: Never Smokeless tobacco: Never Substance Use Topics Alcohol use: Yes Comment: occasional Drug use: Never FAMILY HISTORY Family History Problem Relation Name Age of Onset Arthritis Father Diabetes Brother SURGICAL HISTORY History reviewed. No pertinent surgical history. REVIEW OF SYSTEMS Review of Systems: Review of Systems Constitutional: Negative. HENT: Negative. Eyes: Negative. Respiratory: Negative. Cardiovascular: Negative. Gastrointestinal: Negative. Genitourinary: Positive for vaginal discharge. Consistent with recurrent yeast infection Musculoskeletal: Negative. Skin: Negative. Neurological: Negative. All other systems reviewed and are negative. Hematological: Negative. Endocrine: Negative. Allergic/Immunologic: Negative. OBJECTIVE Objective: Physical Exam Constitutional: Appearance: Normal appearance. She is well-developed. Genitourinary: Vulva normal. Genitourinary Comments: Vaginal drainage today consistent with BV, cultures have been sent Breasts: Breasts are soft. Right: Normal. Left: Normal. Cardiovascular: Rate and Rhythm: Normal rate and regular rhythm. Pulmonary: Effort: Pulmonary effort is normal. Breath sounds: Normal breath sounds. Abdominal: General: Bowel sounds are normal. There is no distension. Palpations: Abdomen is soft. Tenderness: There is no abdominal tenderness. There is no guarding or rebound. Musculoskeletal: General: No swelling. Normal range of motion. Right lower leg: No edema. Left lower leg: No edema. Neurological: Mental Status: She is alert and oriented to person, place, and time. Skin: General: Skin is warm and dry. Psychiatric: Mood and Affect: Mood normal. Behavior: Behavior normal. Vitals and nursing note reviewed. Exam conducted with a nurse substance abuse present. Vitals: Estimated body mass index is 27.12 kg/m as calculated from the following: Height as of 23: 5' 5 . Weight as of this encounter: 163 lb. BP: 116/70 No LMP recorded. Patient has had an implant. ASSESSMENT & PLAN ICD-10-CM 1. Well woman exam with routine gynecological exam Z01.419 POCT urinalysis dipstick manually resulted Pap Smear HPV DNA probe, amplified 2. Possible exposure to STI Z20.2 3. Yeast infection B37.9 Annual Exam: Patient presents today for an annual exam. Patient states she is doing well and has no complaints. Pap was obtained without difficulty. Orders Placed This Encounter Procedures HPV DNA probe, amplified POCT urinalysis dipstick manually resulted Follow Up: Patient is to return in one year for annual unless needed otherwise. Patient with complaints of recurrent yeast. Plan is to trial Visual Aid Expert azole or Diflucan 100 mg daily for 14 days will wait for cultures prior to treatment. Given findings on exam with vaginal discharge consistent with BV treatment for Flagyl is sent to pharmacy. Documented by Marissa Villavicencio NP on behalf of: Aroldo Hendrix DO documented in this encounter [facility] Evaluation note 07-11-2024 Note Date & Type Note Facility 07-11-2024 Evaluation note Diagnosis Onset Date Resolution Vaginal discharge acute Februar y 2024 1:55pm [facility] Work Phone: Evaluation note 07-11-2024 Note Date & Type Note Facility 07-11-2024 Evaluation note Diagnosis Onset Date Resolution Vaginal discharge acute Februar y 2024 1:55pm Vaginal discharge acute August 082024 11:58am [facility] Work Phone: Evaluation note Note Date & Type Note Facility Evaluation note Diagnosis Onset Date UTI (urinary tract infection) acute Malodorous urine noneactive [facility] Work Phone: Evaluation note Note Date & Type Note Facility Evaluation note Diagnosis Onset Date Malodorous urine noneactive [facility] Work Phone: Evaluation note Note Date & Type Note Facility Evaluation note Diagnosis Onset Date UTI (urinary tract infection) acute Malodorous urine noneactive UTI (urinary tract infection) acute [facility] Work Phone: Evaluation note Note Date & Type Note Facility Evaluation note No assessment information availa ble [facility] Work Phone: Evaluation note Note Date & Type Note Facility Evaluation note Diagnosis Bacterial vaginosis- Primary Unspecified vaginitis and vulvovaginitis Well woman exam with routine gynecological exam Routine gynecological examination Possible exposure to STI Yeast infection documented in this encounter [facility] Summary Purpose Family History Relationship Condition Age at Onset Recorded Date/T suad Not Specified Hypothyroidism Unknown brother Diabetes mellitus Unknown Relationship Condition Age at Onset Recorded Date/T suad mother Hypothyroidism Unknown brother Diabetes mellitus Unknown Advance Directives Advance Directive Response Recorded Date/ Time Advance Directives No October 20 7:40am Advance Directive Response Recorded Date/ Time Advance Directives No October 20 6:40am Chief Complaint and Reason for Visit Chief Complaint Poss UTI Malodorous urine Reason for Visit UTI (urinary tract i nfection) Malodorous urine Chief Complaint Poss UTI Reason for Visit Malodorous urine Chief Complaint Poss UTI r82.90 poss uti Reason for Visit UTI (urinary tract i nfection) Malodorous urine Chief Complaint Poss UTI r82.90 poss uti Dysuria Reason for Visit UTI (urinary tract i nfection) Malodorous urine UTI (urinary tract infection) Chief Complaint Admit Date Poss BV July 11, 2024 1 :55pm Chief Complaint Admit Date Poss BV July 11, 2024 1 :55pm Urinary tract infection July 11 2:48pm Reason for Visit Admit Date Vaginal discharge July 11, 2024 1 :55pm Chief Complaint Admit Date Poss BV July 11, 2024 1 :55pm N39.0 July 11, 2024 2 :48pm poss Yeast infection August 22, 2024 11 :58am Reason for Visit Admit Date Vaginal discharge July 11, 2024 1 :55pm Vaginal discharge August 22, 2024 11: 58am Additional Source Comments INFORMATION SOURCE (unrecogn ized section and content) DATE CREATED AUTHOR 07/24/2022 [facility] DATE CREATED AUTHOR AUTHOR'S ORGANIZ ATION 08/25/2023 [facility] EPIC DATE CREATED AUTHOR AUTHOR'S ORGANIZ ATION 08/28/2024 [facility] Care Teams (unrecognized sec tion and content) Team Status: Active Member Role Status Dates Irma Perez MD Primary Care Provider Active Team Status: Inactive Member Role Status Dates Elenita Cleary APRN Attending Provider Active S tart: November 18, 2023 End: November 18, 2023 Irma Perez MD Primary Care Provider Active S tart: November 18, 2023 End: November 18, 2023 Team Status: Inactive Member Role Status Dates Elenita Cleary APRN Attending Provider Active S tart: November 18, 2023 End: November 18, 2023 Team Status: Active Member Role Status Dates NON STAFF Primary Care Provider Active Team Status: Inactive Member Role Status Dates Annabella Landa APRN Attending Provider Active Start: December 28, 2023 End: December 28, 2023 NON STAFF Primary Care Provider Active Start: December 28, 2023 End: December 28, 2023 Team Status: Inactive Member Role Status Dates Annabella Landa APRN Attending Provider Active Start: December 28, 2023 End: December 28, 2023 Team Status: Inactive Member Role Status Dates Annabella Landa APRN Attending Provider Active Start: July 11, 2024 End: July 11, 2024 Irma Perez MD Primary Care Provider Active S tart: July 11, 2024 End: July 11, 2024 Team Status: Inactive Member Role Status Dates Irma Perez MD Primary Care Provider Active S tart: August 22, 2024 End: August 22, 2024 Elenita Cleary APRN Attending Provider Active S tart: August 22, 2024 End: August 22, 2024 Team Status: Inactive Member Role Status Dates Elenita Cleary APRN Attending Provider Active S tart: August 22, 2024 End: August 22, 2024 Zoology Technical Officer Relationship Specialty Start Date End Date Irma Perez MD PCP - General Family Medicine 08/12/23 Zoology Technical Officer Relationship Specialty Start Date End Date Irma Perez MD PCP - General Family Medicine 08/12/23 Goals (unrecognized section and content) Goals may be documented in a n alternate sectionGoals may be documented in an alternate sectionGoals may be documented in an alternate sectionGoals may be documented in an alternate sectionGoals may be documented in an alternate sectionGoals may be documented in an alternate sectionGoals may be documented in an alternate sectionGoals may be documented in an alternate section Reason for Visit (unrecogniz ed section and content) Reason Comments Gynecologic Exam Pt complains of havi ng a chronic yeast infection that does not go away completley. Pt was seen in Urgent care in Jul and August for the yeast infection. Was given diflucan at both appointments and advised at the August appt to also do the Monostat along w/the Diflucan. Pt states it got worse. Now has had thick white discharge. Pt desires to have cx's done along w/her annual. FOR RECORDS PERTAINING TO PATIENTS WHO ARE OR HAVE BEEN ENROLLED IN A CHEMICAL DEPENDENCY/SUBSTANCEABUSE PROGRAM, SOME INFORMATION MAY BE OMITTED. This clinical summary was aggregated from multiple sources. Caution should be exercised in using it in the provision of clinical care. This summary normalizes information from multiple sources, and as a consequence, information in this document may materially change the coding, format and clinical context of patient data. In addition, data may be omitted in some cases. CLINICAL DECISIONS SHOULD BE BASED ON THE PRIMARY CLINICAL RECORDS. [employer] provides no warranty or guarantee of the accuracy or completeness of information in this document.
[2024-09-11 09:09] LABS: Age Gdln ACOG Testing Note (.); HPV Aptima Negative (Negative); IGP, Aptima HPV, rfx 16/18,45 Note (.)
== END 2024-09-07 20:43 | disposition home or self-care (01) ==
LOC: LAB 20:42
PROVIDERS: Visit Provider Obstetrics & Gynecology
DX: Z01.419 Encounter for gynecological examination (general) (routine) without abnormal findings (principal)
CPT/HCPCS: 88175

== ENCOUNTER 2025-04-15 12:10 | Outpatient (OUT) | payer OTHER, SELFPAY ==
--- OUTSIDE RECORDS SUMMARY | 2025-04-09 13:05 | XMS_ITS | Continuity of Care Document ---
Author Organization [facility] Address [address] [place] [address] Phone Care Team Providers Care Home Health Care Coordinator Name Role Phone Ligia Case APRN Attending Provider Irma Perez MD Primary Care Provider Care Teams Patient Care Team Team Status: Active Member Role/Relationship Status Dates Irma Perez MD Primary Care Provider Active Patient Care Team Team Status: Inactive Member Role/Relationship Status Dates AJIT Nava RN INTELLIGENCE CHIEF-C Attending Provider Active Start: April 09, 2025 End: April 09, 2025Ilana Salinas Care ProviderActiveStart: April 09, 2025 End: April 09, 2025 Chief Complaint and Reason for Visit Chief Complaint Admit Date Right palm puncture wound April 09, 2025 5:38pm Reason for Visit Admit Date Puncture wound April 09, 2025 5 :38pm Allergies, Adverse Reactions, Alerts Allergen Type Severity Reaction Last Updated Verified Status penicillin G Allergy Unknown Rash April 09, 2025 5:42pm Y es Active Social History Smoking Status Status Start Date End Date Date of Observa tion Never smoked tobacco (finding) April 09, 2025 5:44pm Observation Status Observation Response Date of Response Legal Sex Female (finding) Sex Assigned At BirthFemaleSept1989 Family History Relationship Condition Age at Onset Recorded Date/T suad mother Hypothyroidism Unknown brotherDiabetes mellitusUnknown Problems Active Problems Problem Diagnosis/Recorded Date Onset Date Stat us UTI (urinary tract infection) November 18, 2023 5:00pm U nknown Active Vaginal discharge July 11, 2024 4:51pm Unknown Active Puncture wound April 09, 2025 5:55pm Unknown Active History of tonsillectomy November 18, 2023 4:40pm Unknow n Active Medications Medication Status Dose Units Route Directions Qty Days Refills S tart Date Stop Date End Date Reason(s) Instructions Adherence Fluconazole 150 mg tablet Discontinued 150 MG PO Q3D 2 0 0 July 11, 2024 1:00am August 22, 2024 12:11pmmay repeat x 1 in 3 days if neededLevonorgestrel (Mirena) 21 mcg/24 hr (8 yrs) 52 mg intrauterine deviceActiveINTRAUTERIJune 2023 12:00amComplies with drug therapyNitrofurantoin Monohyd/M-Cryst (Macrobid) 100 mg mzroujmSvafzvnpfxet814UHOLUasub 12 gyhgx0783Jjmb 2023 12:00amJuly 2023 2:02pmmust administer with a meal/foodSulfamethoxazole- Trimethoprim 800-160 mg kjnokkCopptrhbaclk8ETNJJXdpyb 12 refpx3077Mmcz 2023 12:00amFebruary 2024 3:16pmPhenazopyridine (Pyridium) 200 mg tablet Nauvxcalwehm490ZFFRPjybd times daily as needed for fghb133Vaty2023 12:00amFebruary 2024 3:16pmFluconazole 150 mg mvlkydRzjtpmfomfnl886XZSO Sowtj94Wlycl2024 12:00amOctober 2024 5:43pmMay repeat dose in 3 days if symptoms persist. Vital Signs Vital Reading Result Reference Range Collection Date/Time Height 65 [in_i] April 09, 2025 5:96mvWmeimo54.20 kgOct2024 5:40pmBody Temperature 98.3 [degF]97.6-99.0Oct2024 5:40pmHeart Rate69 /gxn09-920Elsusce 2024 5:40pmRespiratory rate16 /hhr71-22Zefrlwd 2024 5:40pmOxygen saturation by Pulse rivwraxo72 %95-100Octkn[facility] 2024 5:40pmBP Oczdpnpy240 mm[Hg]100-140October 2024 5:40pmBP Qtrbdiaog16 mm[Hg]60-100October 2024 5:40pmBMI (Body Mass Index)27.9 kg/f0Ipnwpjj 2024 5:40pm Advance Directives Advance Directive Response Recorded Date/ Time Advance Directives No October 20 7:40am Insurance Providers Guarantor Tiffanie Lyle Address [address] [facility] [address] Info.Home Phone: Payer Group Member ID Coverage Type Subscriber Relationship to Subscriber Effective Date Expiration Date [employer] Ind Id: [id number] A Tiell Id: [id number] [address] [facility] [address] Home Phone: Email: [email or web address] Encounters Encounter Location(s) Arrival/Admit Date Discharge/Departure Date Discharge/Departure Disposition Provider(s) Departed Physician/ Provider Office Visit -[facility] [place] April 09, 2025 5:38pm April 09, 2025 6:05pm Discharged to home care or self care (routine discharge) Ligia Case APRN Recent Diagnosis Onset Date Admit Date Puncture wound Unknown April 09 5:38pm Assessments Diagnosis Onset Date Resolution Status Admit Date Puncture wound [facility]Oct[facility] 2024 5:38pm Plan of Treatment Author Ligia Case [facility]Authored[facility] 20[facility] 5:56pmTetanus shot given in office today. No need for antibiotic. Wound cleansed with sterile water and peroxide mixture. Covered with bandaid. Follow up with PCP in 2-3 days if symptoms worsen or wound does not improve. Future Tests Future scheduled test information is unavailable Pending Tests Pending diagnostic test information is unavailable Future Visits Future appointment information is unavailable Future Procedures Procedure Name Ordered Date Scheduled Date TDaP >/= 7y Vaccine (Adacel) April 09, 2025 5:38pm Future Medications Future medication information is unavailable Patient Instructions Patient instructions are unavailable
--- OUTSIDE RECORDS SUMMARY | 2025-04-15 12:15 | XMS_ITS | Clinical Summary ---
Author Organization [facility] Address [address] [place] [address], [address] [place] [address] Care Team Providers Care Paving Bed Maker Name Role Phone Unavailable Primary Care Provider Unavailabl e Social History Tobacco UseTypesPacks/DayYears UsedDateSmoking Tobacco: Never Assessed CommentsUnknownSex and Gender InformationValueDate RecordedSex Assigned at Not on fileLegal DnbKopkqb51/10/2013 10:46 AM ESTGender IdentityNot on file Sexual OrientationNot on file Plan of Treatment Not on file
--- OUTSIDE RECORDS SUMMARY | 2025-04-15 12:15 | XMS_ITS | Clinical Summary ---
Author Organization [facility] Address [address] [place] [address] Care Team Providers Care Cyber Systems Engineer Name Role Phone Irma Perez MD Primary Care Provider [phone] Allergies Active AllergyReactionsCriticalityNoted CffaTxiyvgeaUdbyfy66/26/2019Penicillin G 07/17/2023 Other Reaction(s): Unknown Gsmfplryccw90/26/2019 Other Reaction(s): Not available Medications MedicationSigDispense QuantityRefillsLast FilledStart DateEnd DateStatus Multiple Vitamin (Multivitamin Adult) tablet 1 (one) time each day at the same timeActive Levonorgestrel (Mirena, 52 MG,) 20 MCG/DAY intrauterine device as directed IntrauterineActive ascorbic acid (Vitamin C) 100 MG chewable tablet Vitamin CActive Multiple Vitamins-Minerals (Multivitamin Adult, Minerals,) tablet Take by mouth DailyActive Calcium Citrate-Vitamin D (Calcium + D) 315-5 MG-MCG tablet Calcium + DActive Encounters DateTypeDepartmentCare QvmzCdqsjinljpt40/22/2025 1:40 PM [address]TC[address]ult [address] [address] [place] [address] Chele Hendrix DO Pre-op examination; Request for mcdvgbaqtbhjm94/22/2025amboo flowsheet [address] [place] [address] Chele Hendrix DO 03/30/20252037Ywuwui20/16/2025 10:10 AM EDTOffice Visit [facility] [address] [place] [address] [place] [address] Chele Hendrix DO Encounter to discuss procedure; Request for xvyzkxlsjhofq27/16/2025Bamboo flowsheet [facility] [address] [place] [address] [place] [address] Chele Hendrix DO from Last 3 Months Family History Medical HistoryRelationNameCommentsDiabetesBrotherArthritisFatherRelationName ZewgvaBlsfywxwKbmaiamx0Mxpbvl Social History Tobacco UseTypesPacks/DayYears UsedDateSmoking Tobacco: NeverSmokeless Tobacco: NeverAlcohol UseStandard Drinks/WeekCommentsYes0 (1 standard drink = 0.6 oz pure alcohol)occasionalCommentsNoSex and Gender InformationValueDate Recorded Sex Assigned at BirthNot on fileLegal RdxNskckx53/15/2023 11:47 PM EDTGender IdentityNot on fileSexual OrientationNot on file Last Filed Vital Signs Vital SignReadingTime TakenCommentsBlood Vkbmoqjf475/7203/31/2025 1:43 PM EDT Pulse--Temperature--Respiratory Rate--Oxygen Saturation--Inhaled Oxygen Concentration--Nyawmi73 kg (169 lb 12.8 oz)03/31/2025 1:43 PM CCETjqlld492.1 cm (5' 5 )03/31/2025 1:43 PM EDTBody Mass Index28.261 1:43 PM EDT Plan of Treatment DateTypeDepartmentCare Team (Latest Contact Info)Xutevmopbzh16/21/2025Abstract [facility] [address] [place] [address] [place] [address] Chele Hendrix DO [address] [place] [address] [place] [address] 09/14/2025 8:30 AM EDTOffice Visit [facility] [address] [place] [address] [place] [address] Chele Henrdix, [address] [place] [address] [place] [address] Health MaintenanceDue DateLast DoneCommentsHPV/Sfrqlr3303/04/2019COVID-19 Vaccine (2024- season)508/, 01/06/2021Influenza Vaccine (#1) 501/08/2024, 03/06/2023, 03/16/2022, Additional history existsCervical Cancer Pnmowqnub12/31/2028Pap Smear8009/07/2024Pneumococcal Vaccine: Pediatrics (0 to 5 Years) and At-Risk Patients (6 to 64 Years)Aged OutNo longer eligible based on patient's age to complete this topic Procedures Procedure NamePriorityDate/TimeAssociated DiagnosisCommentsPAP SMEARRoutine 09/07/2024 12:00 AM EDTfrom Last 3 Months or Most Recently Relevant to Health Maintenance Results * Pap Smear (09/07/2024 12:00 AM EDT)Specimen (Source)Anatomical Location / LateralityCollection Method / VolumeCollection TimeReceived TimeSwabCervical swab / Unknown Narrative Authorizing ProviderResult TypeResult StatusFazio Nurse [facility] ObLAB CYTOLOGY ORDERABLESFinal ResultPerforming OrganizationAddressCity/State/ZIP CodePhone Number EXTERNAL LAB from Last 3 Months or Most Recently Relevant to Health Maintenance Insurance Care Teams Team MemberRelationshipSpecialtyStart DateEnd Date Irma Perez MD PCP - GeneralFamily Medicine08/12/23
--- OUTSIDE RECORDS SUMMARY | 2025-04-15 12:15 | XMS_ITS | Encounter Summary ---
Author Organization [facility] Address [address] [place] [address] Care Team Providers Care Ballet Company Member Name Role Phone Irma Perez MD Primary Care Provider [phone] Encounter Details DateTypeDepartmentCare Team (Latest Contact Info)Iikhrqjdsay89/12/2024Clinisync Result Encounter [facility] External Department Unsolicited Aroldo Hendrix DO [address] [place] [address] Social History Tobacco UseTypesPacks/DayYears UsedDateSmoking Tobacco: NeverSmokeless Tobacco: NeverAlcohol UseStandard Drinks/WeekCommentsYes0 (1 standard drink = 0.6 oz pure alcohol)occasionalCommentsUnknownSex and Gender InformationValueDate RecordedSex Assigned at BirthNot on fileLegal BtsEayemv15/15/2023 11:47 PM EDT Gender IdentityNot on fileSexual OrientationNot on filedocumented as of this encounter Plan of Treatment DateTypeDepartmentCare Team (Latest Contact Info)Xmftqgdoyct11/21/2025bstract [address] [facility] [place] [id number] Aroldo Hendrix DO [address] [place] [address] 09/14/2025 8:30 AM EDTOffice Visit [facility] [address] [place] [address] Aroldo Hendrix, DO [address] [facility] [place] [address] documented as of this encounter Procedures Procedure NamePriorityDate/TimeAssociated DiagnosisCommentsUS PELVIS XWRGNOIXZBWR05/12/2024 3:39 PM EDT documented in this encounter Results * US PELVIS TRANSVAGINAL (08/20/2023 3:39 PM EDT)Anatomical RegionLaterality ModalityOtherSpecimen (Source)Anatomical Location / LateralityCollection Method / VolumeCollection TimeReceived Time08/20/2023 3:39 PM EDT Narrative 08/20/2023 3:42 PM EDT [facility] ?[address] ? [place], [facility] ? Ultrasound Report ? Signed ? Patient: RAJ WAITE ?MR#: [id number] ?? : 1990 ?Acct:[id number] ?? Age/Sex: 33 / F ?ADM Date: 08/20/23 ?? [facility] ? Attending Dr: Aroldo Hendrix D.O. ? Ordering Physician: Aroldo Hendrix D.O. ?? Date of Service: 08/20/23 ?? Procedure(s): US pelvis transvaginal ?? Accession Number(s): [id number] ? cc: Aroldo Hendrix D.O.; Physician,Non-Staff M.D. ? [facility] ? [address] ? [place] [address] ? Patient Name: ?? RAJ Hercules RAVINDRA ? MRN: [facility]:[id number] ? date: 1990 ?Sex: F ?? Assigned [facility] ?? Current [facility] ?? Accession/Order Number: [id number] ?? Exam Date: 08/20/2023 ??15:08 ?Report Date: 08/20/2023 ??15:39 ? At the request of: ?? AROLDO ??RUMA ? Procedure: ??US pelvis transvaginal ? EXAMINATION: US pelvis transvaginal ? HISTORY: PELVIC PAIN IUD PLACEMENT ? COMPARISON: No relevant comparison available. ? FINDINGS: ? The uterus is normal in size and contour measuring 6.6 x 3.5 x 5.2 cm, ?? retroverted, retroflexed. Heterogeneous echotexture with no focal mass ? The endometrium measures 4 mm, normal. Linear hyperechogenicity within the ?? endometrial cavity with ringdown artifact consistent with a normally ?? positioned ?? IUD ? The right ovary is normal measuring 2.9 x 1.3 x 2.3 cm. Color and Doppler flow ? The left ovary is normal measuring 2.8 x 1.4 x 3.0 cm. Normal color Doppler ?? flow ? US/US pelvis transvaginal ?? IMPRESSION: ? Normal position of IUD ? Electronically authenticated by: EDWARDO ??LATESHA ?? Date: 08/20/2023 ??15:39 ? Dictated By: ?Edwardo Charlton M.D. ? Signed By: ?08/20/23 1542 ? DD/ 1539 ? TD/TT: ? Proof Operator: Procedure Note Radiology, Radiologist, MD - 08/20/2023 [place] [address] Ultrasound Report Signed Patient: RAJ WAITE AMR#: [id number] : 1990Acct:[id number] Age/Sex: 33 / FADM Date: 08/20/23 [facility] Aroldo Hendrix D.O. Ordering Physician: Aroldo Hendrix D.O. Date of Service: 08/20/23 Procedure(s): US pelvis transvaginal Accession Number(s): [id number] cc: Aroldo Hendrix D.O.; Physician,Non-Staff M.D. The [place] [id number] Patient Name: RAJ WAITE MRN: [id number] date: 1990 Sex: F Assigned [facility]: [facility] Current Patient Location: [facility] Accession/Order Number: [id number] Exam Date: 08/20/2023 15:08 Report Date: 08/20/2023 15:39 At the request of: AROLDO HENDRIX Procedure: US pelvis transvaginal EXAMINATION: US pelvis transvaginal HISTORY: PELVIC PAIN IUD PLACEMENT COMPARISON: No relevant comparison available. FINDINGS: The uterus is normal in size and contour measuring 6.6 x 3.5 x 5.2 cm, retroverted, retroflexed. Heterogeneous echotexture with no focal mass The endometrium measures 4 mm, normal. Linear hyperechogenicity within the endometrial cavity with ringdown artifact consistent with a normally positioned IUD The right ovary is normal measuring 2.9 x 1.3 x 2.3 cm. Color and Dopplerflow The left ovary is normal measuring 2.8 x 1.4 x 3.0 cm. Normal colorDoppler flow US/US pelvis transvaginal IMPRESSION: Normal position of IUD Electronically authenticated by: EDWARDO CHARLTON Date: 08/20/2023 15:39 Dictated By: Edwardo Charlton M.D. Signed By:08/20/23 1542 DD/ 1539 TD/TT: Proof Operator: Authorizing ProviderResult TypeResult StatusCorey Ruma DOCLINISYNC IMAGINGFinal Result documented in this encounter Visit Diagnoses Not on filedocumented in this encounter Care Teams Team MemberRelationshipSpecialtyStart DateEnd Date Irma Perez MD PCP - GeneralFamily Medicine08/12/23documented as of this encounter
--- OUTSIDE RECORDS SUMMARY | 2025-04-15 12:19 | XMS_ITS | CCD ---
Author Organization [facility] Care Team Providers Care Traffic Director Name Role Phone DR AROLDO HENDRIX Admitting Unavailable RUMA, DR KENDRICK Attending Unavailable RUMA, DR KENDRICK Consulting Unavailable RUMA, DR KENDRICK Admitting Unavailable RUMA, DR KENDRICK Attending Unavailable RUMA, DR KENDRICK Consulting Unavailable SUHA Cleary Attending Provider SUHA Landa Attending Provider Annabella Landa APRN Attending Provider Irma Perez MD Primary Care Provider Annabella Landa APRN Attending Provider Irma Perez MD [facility] Care Provider Elenita Cleary APRN Attending Provider Kathryn Clearyanda Lamar Admitting Unavailable Madiha Elenita Lamar Attending Unavailable Annabella Landa Admitting Unavailable Annabella Landa Attending Unavailable Irma Perez Primary Care Unavailable Annabella Landa Admitting Unavailable Annabella Landa Attending Unavailable Madiha Elenita Lamar Attending Unavailable Madiha Elenita M Admitting Unavailable Irma Perez MD Primary Care Provider AROLDO HENDRIX Attending Unavailable AROLDO HENDRIX Attending Unavailable AROLDO HENDRIX Attending Unavailable AROLDO HENDRIX Attending Unavailable Ligia Case APRN Attending Provider Irma Perez MD Primary Care Provider Allergies Allergy ClassificationReported Allergen(s)Allergy TypeDate of OnsetReaction(s) Facility (1 source)PenicillinDrug Fwicscw96-91-1834MfjaygebvProm[facility] Repository (15 sources)nickel sulfateDrug Dcszprx33-44-5073[facility] Work Phone: (15 sources)Penicillin GDrug Oabsicl75-01-4141X[facility] (15 sources)PenicillinsDrug Gdodsvuvlrf83-89-3506JNJV [facility] Medications Current Medications MedicationDrug Class(es)DatesSig (Normalized)Sig (Original)ascorbic acid 100 mg chewable tablet (15 sources)Vitamin Cascorbic acid (Vitamin C) 100 MG chewable tablet Vitamin C Activeascorbic acid 60 mg / beta carotene 5000 unt / copper sulfate 40 mg / dl- alpha tocopheryl acetate 30 unt / sodium selenite 0.04 mg / zinc oxide 40 mg oral tablet (15 sources)Vitamin CMultiple Vitamin (Multivitamin Adult) tablet 1 (one) time each day at the same time Activecalcium citrate 1500 mg / cholecalciferol 200 unt oral tablet (15 sources)Vitamin DCalcium Citrate-Vitamin D (Calcium + D) 315-5 MG-MCG tablet Calcium + D Activelevonorgestrel 0.960859 mg/hr intrauterine system (20 sources)Progestin, Progestin-containing Intrauterine DeviceStart: 11-18-2023 Levonorgestrel (Mirena) 21 mcg/24 hr (8 yrs) 52 mg intrauterine device Active INTRAUTERI November 12:00am Complies with drug therapyLevonorgestrel (Mirena, 52 MG,) 20 MCG/DAY intrauterine device as directed Intrauterine Active metroNIDAZOLE 500 mg oral tablet (7 sources)Nitroimidazole AntimicrobialStart: 10-01-2024 End: 72-15-8812rzpa 1 tablet by mouth in the morningmetroNIDAZOLE (Flagyl) 500 MG tablet Indications: Vaginal discharge Take 1 tablet (500 mg) by mouthin the morning and 1 tablet (500 mg) before bedtime. Do all this for 7 days. Do not drink alcohol while taking this medication. 14 tablet 10/01/2024 10/08/2024 ActiveStart: 09-07-2024 End: 29-95-0718fwwx 1 tablet by mouth in the morningmetroNIDAZOLE (Flagyl) 500 MG tablet Indications: Bacterial vaginosis Take 1 tablet (500 mg) by mouth in the morning and 1 tablet (500 mg) before bedtime. Do all this for 7 days. Do not drink alcoholwhile taking this medication. 14 tablet 09/07/2024 09/14/2024 ActiveMultiple Vitamins-Minerals (Multivitamin Adult, Minerals,) tablet (15 sources)Multiple Vitamins-Minerals (Multivitamin Adult, Minerals,) tablet Take by mouth Daily Active Completed/Discontinued Medications MedicationDrug Class(es)DatesSig (Normalized)Sig (Original)fluconazole 150 mg oral tablet (8 sources)Azole AntifungalStart: 08-22-2024 End: 49-00-6085rxrs 1 tablet by mouth once dailyFluconazole 150 mg tablet Discontinued 150 MG PO Daily 2 0 August 22, 2024 12:00am April 09, 2025 5:43pm May repeat dose in 3 days if symptoms persist.Start: 07-11-2024 End: 09-63-4340Wswppeatwqv 150 mg tablet Discontinued 150 MG PO Q3D 2 0 0 July 11, 2024 1:00am August 22, 2024 12:11pm may repeat x 1 in 3 days if needednitrofurantoin, macrocrystals 25 mg / nitrofurantoin, monohydrate 75 mg oral capsule (9 sources)Nitrofuran AntibacterialStart: 11-18-2023 End: 49-07-8928icep 1 capsule by mouth every twelve hours at mealtime Nitrofurantoin Monohyd/M-Cryst (Macrobid) 100 mg capsule Discontinued 100 MG PO Every 12 hours 14 70 November 18, 2023 12:00am December 28, 2023 2:02pm must administer with a meal/foodphenazopyridine hydrochloride 200 mg oral tablet (7 sources)Start: 12-28-2023 End: 95-11-6289mijt 1 tablet by mouth three times daily as needed for pain Phenazopyridine (Pyridium) 200 mg tablet Discontinued 200 MG PO Three times daily as needed for pain 9 3 0 December 28, 2023 12:00am July 11, 2024 3:16pm sulfamethoxazole 800 mg / trimethoprim 160 mg oral tablet (7 sources)Dihydrofolate Reductase Inhibitor Antibacterial, Sulfonamide AntimicrobialStart: 12-28-2023 End: 14-69-1260hlga 1 tablet by mouth every twelve hoursSulfamethoxazole- Trimethoprim 800-160 mg tablet Discontinued 1 TAB PO Every 12 hours 14 7 0 December 28, 2023 12:00am July 11, 2024 3:16pm Problems Active Problems Problem ClassificationProblemDateDocumented DateEpisodic/Chronic Administrative/social admission (2 sources)Patient encounter status; Translations: [Other specified counseling] 74-18-7047FiyywuipXcbcowsuytprp and procreative management (3 sources)Sterilization requested; Translations: [Encounter for sterilization] 01-75-0797VlbaiqwbNadecvnvdljmm and screening for infectious disease (4 sources)Encounter for screening for human papillomavirus (HPV); Translations: [Encounter for screening for infections with a predominantly sexual mode of transmission]Onset: [id number] diseases of female pelvic organs (2 sources)Bacterial vaginosis; Translations: [Acute vaginitis]09-07-2024 EpisodicMycoses (2 sources)Mycosis; Translations: [Candidiasis, unspecified]08-76-7168Youdgeko Other female genital disorders (10 sources)Other specified noninflammatory disorders of vagina; Translations: [Leukorrhea, not specified as infective]Onset: 08-90-9106CkxiqikbMlvqx female genital disorders (6 sources)Vaginal discharge; Translations: [Other specified noninflammatory disorders of vagina]54-19-3874VcanwbcuStbfd injuries and conditions due to external causes (2 sources)Puncture wound - injury; Translations: [Other injury of unspecified body region, initial encounter]13-35-2548XvpimgeaYblwj screening for suspected conditions (not mental disorders or infectious disease) (4 sources)Encounter for screening for malignant neoplasm of cervix; Translations: [ENC SCREENING MALIG NEOPLASM CERV]Onset: 41-97-2244Xrkznvyr Urinary tract infections (14 sources)Urinary tract infectious disease; Translations: [Urinary tract infection, site not specified]Onset: 655748-32-8376Kobiiqiv Past or Other Problems Problem ClassificationProblemDateDocumented DateEpisodic/ChronicGenitourinary symptoms and ill-defined conditions (6 sources)Unspecified abnormal findings in urine; Translations: [Other nonspecific findings on examination ofurine]Onset: 929026-56-9370Bjeijatu Results Test NameValueInterpretationReference RangeFacilityUrinalysis macro (dipstick) panel (U)on 67-13-0278Iyrrmpayv, UAPositiveNegative - 4(70) +++ mg/dLNOMS HealthcareComment on above:smallBlood, UANegativeNegative - 50 Hema/mcLNOMS HealthcareClarity, UACloudyNOMS HealthcareColor, UAAmberNOMS HealthcareGlucose, UANegativeNegative - 2000(110) ++++ mg/dLNOMS HealthcareInterpretation and review of laboratory resultsAbnormalNOMS HealthcareKetones, UAPositiveNegative - 160(16) ++++ mg/dLNOMS HealthcareComment on above:40Leukocytes, UATraceNegative - 500+++ Francesca/mcLNOMS HealthcareNitrite, UANegativeNegative - PositiveNOMS HealthcarepH, UA75 - 9NOMS HealthcareProtein, UAPositiveNegative - 2000(20) ++++ mg/dLNOMS HealthcareComment on above:100Spec Grav, UA1.0251 - 1.03NOMS HealthcareUrobilinogen, UA0.20.2 - 12 mg/dLNOMS HealthcareNOMS Healthcare IGP,APTIMA HPV,AGE GDLNon 28-49-7536HQC GDLN ACOG TESTINGNote.[facility] Comment on above:TESTS RESULT FLAG UNITS REF RANGE LAB Clinician Provided Cytology Information Source.............Cervix;Endocervix No. of containers..01 ThinPrep Vial Age Algo ACOG Isabel... FLAG LEGEND: L-Low Normal,H-High Normal,LL-Alert Low,HH-Alert High <-Panic Low,>-Panic High,A-Abnormal,AA-Critical Abnormal Performed at: 01 =[address] [address] Mary Jacinto MD, HPV APTIMANegativeNegativeNOMS HealthcareComment on above:This nucleic acid amplification test detects fourteen high- risk HPV types (16,18,31,33,35,39,45,51,52,56,58,59,66,68) without differentiation. Performed at: =[address] [id number] [employer]ator: Mary Jacinto MD, Phone: [phone] Performed at: [address] [id number] [employer]ator: Mary Jacinto MD, Phone: [phone] IGP, APTIMA HPV, RFX 16/18,45Note.NOMS HealthcareComment on above:TESTS RESULT FLAG UNITS REF RANGE LAB DIAGNOSIS: 02 NEGATIVE FOR INTRAEPITHELIAL LESION OR MALIGNANCY. Specimen adequacy: 02 Satisfactory for evaluation. No endocervical component is identified. Performed by: 02 Coty Marte Information Lead (ASCP) . 02 Note: Note 02 The Pap smear is a screening test designed to aid in the detection of premalignant and malignant conditions of the uterine cervix. It is not a diagnostic procedure and should not be used as the sole means of detecting cervical cancer. Both false-positive and false-negative reports do occur. Test Methodology: Note 02 This liquid based ThinPrep(R) pap test was screened with the use of an image guided system. HPV Genotype Reflex Note 02 Criteria not met, HPV Genotype not performed. FLAG LEGEND: L-Low Normal,H-High Normal,LL-Alert Low,HH-Alert High <-Panic Low,>-Panic High,A-Abnormal,AA-Critical Abnormal Performed at: [address] [facility] [address] [phone] Mary Jacinto MD, BRUSH-SPATULA CERVIX ENDOCERVIX CLINISYNCNOMS HealthcareRECURRENT VAGINITIS (HTRX)on 41-62-9511LLHRFIQAD VAGINAE 0NOMS HealthcareATOPOBIUM VAGINAENot detectedNOMS HealthcareBVAB 2,3 (BACTERIAL VAGINOSIS ASSOCIATED BACTERIA 2, 3); MOBILUNCUS [id number] HealthcareBVAB 2,3 (BACTERIAL VAGINOSIS ASSOCIATED BACTERIA 2, 3); MOBILUNCUS SPPNot detectedNOMS HealthcareCANDIDA ALBICANS, PARAPSILOSIS, [id number] HealthcareCANDIDA ALBICANS, PARAPSILOSIS, TROPICALISNot detectedNOMS HealthcareCANDIDA GLABRATA0 NOMS HealthcareCANDIDA GLABRATANot detectedNOMS HealthcareCANDIDA SNYDVS3DBCG HealthcareCANDIDA KRUSEINot detectedNOMS HealthcareCHLAMYDIA [id number] HealthcareCHLAMYDIA TRACHOMATISNot detectedNOMS HealthcareGARDNERELLA VAGINALIS0 NOMS HealthcareGARDNERELLA VAGINALISNot detectedNOMS HealthcareMEGASPHAERA (TYPES 1, 2)0NOMS HealthcareMEGASPHAERA (TYPES 1, 2)Not detectedNOMS Healthcare MYCOPLASMA RAFNJHRACT6LLDJ HealthcareMYCOPLASMA GENITALIUMNot detectedNOMS HealthcareNEISSERIA HMHIRACIFVV5CPTY HealthcareNEISSERIA GONORRHOEAENot detected NOMS HealthcareTRICHOMONAS [id number] HealthcareTRICHOMONAS VAGINALISNot detectedNOMS HealthcareNOMS HealthcareUrinalysis macro (dipstick) panel (U)on 34-79-8845Kusxphddo, UANegativeNegative - 4(70) +++ mg/dLNOMS HealthcareBlood, UAPositiveNegative - 50 Hema/mcLNOMS HealthcareComment on above:traceClarity, UA ClearNOMS HealthcareColor, UAYellowNOMS HealthcareGlucose, UANegativeNegative - 2000(110) ++++ mg/dLNOMS HealthcareInterpretation and review of laboratory resultsNormalNOWY HealthcareKetones, UANegativeNegative - 160(16) ++++ mg/dLNOMS HealthcareLeukocytes, UANegativeNegative - 500+++ Francesca/mcLNOWY HealthcareNitrite, UANegativeNegative - PositiveNOMS HealthcarepH, UA5.55 - 9[facility] Protein, UANegativeNegative - 2000(20) ++++ mg/dLNOMS HealthcareSpec Grav, UA 1.021 - 1.03NOMS HealthcareUrobilinogen, UA0.20.2 - 12 mg/dLNOMS [facility] HospitalNOWY HealthcareVaginitis Plus (VG+)on 86-52-9629Rsrddhznf VaginaeLow - 0Normal.[facility] Physician GroupComment on above:Result Comment: This test was developed and its performance characteristics determined by [facility]. It has not been cleared or approved by the Food and Drug Administration.Performed By: #### VAGINITIS+ #### [facility] ,YAGD7Pgv - 0Normal.[facility] Physician GroupComment on above:Result Comment: This test was developed and its performance characteristics determined by [facility]. It has not been cleared or approved by the Food and Drug Administration.Performed By: #### VAGINITIS+ #### [facility] ,Kitty Albicans, NAANegativeNormalNegativeThe [facility] Physician GroupComment on above:Result Comment: This test was developed and its performance characteristics determined by [facility]. It has not been cleared or approved by the Food and Drug Administration.Performed By: #### VAGINITIS+ #### [facility] ,Kitty Glabrata, NAANegativeNormalNegativeThe [facility] Physician GroupComment on above:Result Comment: This test was developed and its performance characteristics determined by [facility]. It has not been cleared or approved by the Food and Drug Administration. PERFORMED BY: [facility] [address] [place] [address] PATHOLOGIST POWER AND RECOVERY SUPERINTENDENT BRYAN JONES M.D.Performed By: #### VAGINITIS+ #### [facility] ,Chlamydia Trachomotis, NAANegativeNormalNegativeThe [facility] Comment on above:Performed By: #### VAGINITIS+ #### [facility] ,MegasphaeraLow - 0Normal.[facility] Physician GroupComment on above:Result Comment: This test was developed and its [...] Total score 3-6: Indicates the presence of BV.Performed By: #### VAGINITIS+ #### [facility] ,Neisseria Gonorrhoeae, NAANegativeNormalNegativeThe [facility] Comment on above:Result Comment: Performed at: =[facility] [id number] [employer] Fabricator: Mary Jacinto MD, Phone: [phone] By: #### VAGINITIS+ #### [facility] ,Tric Vag NAANegativeNormalNegativeThe [facility] Physician GroupComment on above:Performed By: #### VAGINITIS+ #### [facility] ,Laboratory - Microbiology and Antimicrobial susceptibilityOrdered By: Annabella Landa on 07-11-2024N. gonorrhoeae DNA ANDRADE+probe Ql (Unsp spec)NegativeNegative [facility] HospitalComment on above:Performed at: =[address] [id number] Director: Mary Jacinto MD, Phone: [phone] Panel InformationOrdered By: Annabella Landa on 07-11-2024 Kitty albicans (ANDRADE)NegativeNegativePromedica Defiance Regional HospitalComment on above:This test was developed and its performance characteristicsdetermined by [facility]. It has not been cleared orapproved by the Food and Drug Administration.Kitty glabrata (ANDRADE)NegativeNegativePromedica Defiance Regional HospitalComment on above:This test was developed and its performance characteristicsdetermined by [facility]. It has not been cleared orapproved by the Food and Drug Administration.Chlamydia trachomatis (ANDRADE) (LAB)NegativeNegative [facility] HospitalTrichomonas vaginalis (ANDRADE)NegativeNegative [facility] HospitalVaginal fluid Atopobium vaginae DNA detection by probe and target amplification methoOrdered By: Annabella Landa on 07-11-2024. vaginae DNA ANDRADE+probe Ql (Vag fld)Vaginal fluid Atopobium vaginae DNA detection by probe and target amplification metho.[facility] HospitalComment on above:This test was developed and its performance characteristicsdetermined by [facility]. It has not been cleared orapproved by the Food and Drug Administration.Vaginal fluid Megasphaera species type 1 DNA detection by probe and target amplificatOrdered By: Annabella Landa on 28-77-3315Rofwwqlhqii sp type 1 DNA ANDRADE+probe Ql (Vag fld)Vaginal fluid Megasphaera species type 1 DNA detection by probe and target amplificat.[facility] Comment on above:This test was developed and its performance characteristicsdetermined by [facility]. It has not been cleared orapproved by the Food and Drug Administration.Calculate total score by adding the 3 individual bacterialvaginosis (BV) marker scores together. Total score isinterpreted as follows:Total score 0-1: Indicates the absence of BV.Total score 2: Indeterminate for BV. Additional clinical data should be evaluated to establish a diagnosis.Total score 3-6: Indicates the presence of BV.Vaginal fluid bacterial vaginosis associated bacterium 2 DNA detection by probe and tOrdered By: Annabella Landa on 43-02-6205Uovoidjyu vaginosis associated bacterium 2 DNA ANDRADE+probe Ql (Vag fld)Vaginal fluid bacterial vaginosis associated bacterium 2 DNA detection by probe and t.[facility] HospitalComment on above: This test was developed and its performance characteristicsdetermined by [facility]. It has not been cleared orapproved by the Food and Drug Administration. Vaginitis Plus (VG+)on 95-36-7345Gkhuhanls VaginaeLow - 0Normal.[facility] Physician GroupComment on above:Result Comment: This test was developed and its performance characteristics determined by [facility]. It has not been cleared or approved by the Food and Drug Administration.Performed By: #### VAGINITIS+ #### [facility] ,CQCN2Ewo - 0Normal.[facility] Physician GroupComment on above:Result Comment: This test was developed and its performance characteristics determined by [facility]. It has not been cleared or approved by the Food and Drug Administration.Performed By: #### VAGINITIS+ #### [facility] ,Kitty Albicans, NAANegativeNormalNegativeThe [facility] Physician GroupComment on above:Result Comment: This test was developed and its performance characteristics determined by [facility]. It has not been cleared or approved by the Food and Drug Administration.Performed By: #### VAGINITIS+ #### [facility] ,Kitty Glabrata, NAANegativeNormalNegativeThe [facility] Physician GroupComment on above:Result Comment: This test was developed and its performance characteristics determined by [facility]. It has not been cleared or approved by the Food and Drug Administration. PERFORMED BY: [place] [address] [place] [address] PATHOLOGIST POWER AND RECOVERY SUPERINTENDENT BRYAN JONES M.D.Performed By: #### VAGINITIS+ #### [facility] ,Chlamydia Trachomotis, NAANegativeNormalNegativeThe [facility] Comment on above:Performed By: #### VAGINITIS+ #### [facility] ,MegasphaeraLow - 0Normal.[facility] Phys[facility] GroupComment on above:Result Comment: This test was developed and its performance characteristics determined by [facility]. It has not been cleared or approved [...] Total score 3-6: Indicates the presence of BV.Performed By: #### VAGINITIS+ #### [facility] ,Neisseria Gonorrhoeae, NAANegativeNormalNegativeThe [facility] Comment on above:Result Comment: Performed at: =[address] [id number] [employer] Fabricator: Mary Jacinto MD, Phone: [phone] By: #### VAGINITIS+ #### [facility] ,Tric Vag NAANegativeNormalNegativeThe [facility] Physician GroupComment on above:Performed By: #### VAGINITIS+ #### [facility] ,Urine Cultureon 96-59-1217Oxxbjueu identified Cx Nom (U)ORGANISM: Escherichia coli (O:ESCCOL) Canby Count >100,000 Aerobic APRIL Charge (NMIC56) SUSCEPTIBILITY [...] <4 Tigecycline S <2 Tobramycin S <2 Trimethoprim/Sulfamethoxazole S <0.5 S = SUSCEPTIBLE I = [...] RESISTANT TO ALL B-LACTAM DRUGS. PERFORMED BY: [place] [address] PATHOLOGIST POWER AND RECOVERY SUPERINTENDENT JEANNETTE MARRERO M.D.[facility] Physician GroupComment on above:Performed By: #### CUU #### [place] [address] USABacteria Vaginosis, NAAon 92-25-1779Mutgbzznj VaginaeLow - 0Normal.[facility] Physician GroupComment on above:Result Comment: This test was developed and its performance characteristics determined by [facility]. It has not been cleared or approved by the Food and Drug Administration.Performed By: #### CUU #### [place] [address] [place] #### VAGINOSIS #### [facility] ,CDHV0Ysq - 0Normal.[facility] Physician GroupComment on above:Result Comment: This test was developed and its performance characteristics determined by [facility]. It has not been cleared or approved by the Food and Drug Administration.Performed By: #### CUU #### [place] [address] [place] #### VAGINOSIS #### [facility] ,MegasphaeraLow - 0Normal.[facility] Physician GroupComment on above:Result Comment: This test was developed and its [...] Indicates the presence of BV. Performed at: =[facility] [id number] Concrete [employer] Fabricator: Mary Jacinto MD, Phone: [phone] PERFORMED BY: [place] [address] PATHOLOGIST POWER AND RECOVERY SUPERINTENDENT JEANNETTE MARRERO M.D.Performed By: #### CUU #### [address] #### VAGINOSIS #### [facility] ,Laboratory - Chemistry and Chemistry - challengeon 09-99-7973Pvyrcoqgl Ql (U) NegativePromedica Defiance Regional HospitalGlucose (U) [Mass/Vol]NegativePromedica Defiance Regional HospitalKetones Ql (U)PositivePromedica Def[facility] Hospital pH (U)6.0 [pH][facility] Limapecific gravity (U) [Rel density]1.010[facility] HospitalUrobilinogen (U) [Mass/Vol]0.2 mg/dLPromedica Defiance Regional HospitalLaboratory - Specimen informationon 17-62-5880Eeeonhrznq (U)cloudyPromedica Defiance Regional HospitalColor (U)yellow [facility] HospitalLaboratory - Urinalysison 47-20-5843Diuhbxvnx esterase Test strip Ql (U)largePromedica Defiance Regional HospitalNitrite Ql (U) NegativePromedica Defiance Regional HospitalProtein Ql (U)NegativePromedica Defiance Regional HospitalNo Panel Informationon 28-78-2198Auocu Occult Bloodtrace [facility] HospitalUrine Cultureon 32-08-4019Xouykfks identified Cx Nom (U)ORGANISM: Escherichia coli (O:ESCCOL) Canby Count >100,000 Aerobic APRIL Charge (NMIC56) SUSCEPTIBILITY [...] <4 Tigecycline S <2 Tobramycin S <2 Trimethoprim/Sulfamethoxazole S <0.5 S = SUSCEPTIBLE I = [...] RESISTANT TO ALL B-LACTAM DRUGS. PERFORMED BY: [place] [address] PATHOLOGIST POWER AND RECOVERY SUPERINTENDENT JEANNETTE MARRERO M.D.[facility] Physician GroupComment on above:Performed By: #### CUU #### [facility] [address] [place] [address] [place] #### VAGINOSIS #### [facility] ,Urine culture routineOrdered By: Elenita Cleary on 58-29-3666Jznklyuf identified Cx Nom (U)Escherichia coliAbnormOhioHealth Hardin Memorial HospitalVaginal fluid Atopobium vaginae DNA detection by probe and target amplification methoOrdered By: Elenita Cleary on 11-18-2023. vaginae DNA ANDRADE+probe Ql (Vag fld)Low - 0 Score. [facility] HospitalComment on above:This test was developed and its performance characteristicsdetermined by [facility]. It has not been cleared orapproved by the Food and Drug Administration.Vaginal fluid Megasphaera species type 1 DNA detection by probe and target amplificatOrdered By: Elenita Cleary on 98-81-1324Duxvgajwanw sp type 1 DNA ANDRADE+probe Ql (Vag fld)Low - 0 Score. [facility] HospitalComment on above:This test was developed and its performance characteristicsdetermined by [facility]. It has not been cleared orapproved by the Food and Drug Administration.Calculate total score by adding the 3 individual bacterialvaginosis (BV) marker scores together. Total score isinterpreted as follows:Total score 0-1: Indicates the absence of BV.Total score 2: Indeterminate for BV. Additional clinical data should be evaluated to establish a diagnosis.Total score 3-6: Indicates the presence of BV.Performed at: =[address] [id number] Director: Mary Jacinto MD, Phone: [phone] fluid bacterial vaginosis associated bacterium 2 DNA detection by probe and tOrdered By: Elenita Cleary on 68-35-4379Hbvatmjql vaginosis associated bacterium 2 DNA ANDRADE+probe Ql (Vag fld) Low - 0 Score.[facility] HospitalComment on above:This test was developed and its performance characteristicsdetermined by [employer]. It has not been cleared orapproved by the Food and Drug Administration.US PELVIS TRANSVAGINALon 92-07-4813[place]xz[place], [place] [address] Ultrasound Report Signed Patient: RAJ WAITE MR#: [id number] : 1990 Acct:[id number] Age/Sex: 33 / F ADM Date: 08/20/23 Loc: [facility] Attending Dr: Aroldo Hendrix D.O. Ordering Physician: Aroldo Hendrix D.O. Date of Service: 08/20/23 Procedure(s): US pelvis transvaginal Accession Number(s): [id number] cc: Aroldo Hendrix D.O.; Physician,Non-Staff M.D. [facility] [place] [id number] Patient Name: RAJ WAITE MRN: [id number] date: 1990 Sex: F Assigned Patient [facility]: [facility] Current Patient Location: [facility] Accession/Order Number: [id number] Exam Date: 08/20/2023 15:08 Report Date: 08/20/2023 [...] x 2.3 cm. Color and Doppler flow The left ovary is normal measuring 2.8 x 1.4 x 3.0 cm. Normal color Doppler flow US/US pelvis transvaginal IMPRESSION: Normal position of IUD Electronically authenticated by: EDWARDO CHARLTON Date: 08/20/2023 15:39 Dictated By: Edwardo Charlton M.D. Signed By: 08/20/23 1542 DD/ 1539 TD/TT: Cardiovascular Technologist:TBHRadiology, Radiologist, MD - 08/20/2023 [place] [address] Ultrasound Report Signed Patient: RAJ WAITE MR#: [id number] : 1990 Acct:[id number] Age/Sex: 33 / F ADM Date: 08/20/23 Loc: [facility] Attending Dr: Aroldo Hendrix D.O. Ordering Physician: Aroldo Hendrix D.O. Date of Service: 08/20/23 Procedure(s): US pelvis transvaginal Accession Number(s): [id number] cc: Ruma,Aroldo D.O.; Physician,Non-Staff Carmelina [facility] [place] [address] Patient Name: ARJ WAITE MRN: [facility]:[id number] date: 1990 Sex: F Assigned Patient Location: [facility] Current Patient Location: [facility] Accession/Order Number: [id number] Exam Date: 08/20/2023 15:08 Report Date: 08/20/2023 [...] x 2.3 cm. Color and Doppler flow The left ovary is normal measuring 2.8 x 1.4 x 3.0 cm. Normal color Doppler flow US/US pelvis transvaginal IMPRESSION: Normal position of IUD Electronically authenticated by: EDWARDO CHARLTON Date: 08/20/2023 15:39 Dictated By: Edwardo Charlton M.D. Signed By: 08/20/23 1542 DD/ 1539 TD/TT: Cardiovascular Technologist: [facility]OS[facility]ITALCrista HealthcareRadiology Study observation (narrative)[facility] HealthcareUS PELVIS TRANSVAGINALOrdered By: Radiologist Radiology on 55-25-9970YLQG [employer] Work Phone: pap ACOG PANEL 2: 30 to 65on 07-23-2022..NormalThe [facility] NorthComment on above:Result Comment: Performed at: WBPerformed By: #### [id number] #### [facility] Laboratory [address] [place] [address] Dr. Zheng Pompa Gdln ACOG [address] StreetComment on above:Performed By: #### [id number] #### [facility] [address] [place] [address] Dr. Zheng KnowlesDIAGNOSIS:CommentMount St. Mary Hospital on above: Result Comment: NEGATIVE FOR INTRAEPITHELIAL LESION OR MALIGNANCY. Performed at: WBPerformed By: #### [id number] #### [facility] [address] [place] [address] Dr. Zheng Gonsales AptimaNegativeNormalNegativeThe [facility] on above:Result Comment: This nucleic acid amplification test detects fourteen high-risk HPV types (16,18,31,33,35,39,45,51,52,56,58,59,66,68) without differentiation. Performed at: =GPerformed By: #### [id number] #### [facility] [address] [place] [address] Dr. Zheng Gonsales Genotype ReflexCommentNoTrinity Health System East Campus on above:Result Comment: Criteria not met, HPV Genotype not performed. Performed at: WBPerformed By: #### [id number] #### [facility] [address] [place] [address] Dr. Zheng KnowlesMethodology:CommentMount St. Mary Hospital on above: Result Comment: This liquid based ThinPrep(R) pap test was screened with the use of an image guided system. Performed at: WBPerformed By: #### [id number] #### [facility] [address] [place] [address] Dr. Zheng KnowlesNote:CommentNoTrinity Health System East Campus on above:Result Comment: The Pap smear is a screening test designed to aid in the detection of premalignant and malignant conditions of the uterine cervix. It is not a diagnostic procedure and should not be used as the sole means of detecting cervical cancer. Both false-positive and false-negative reports do occur. . Performed at: WBPerformed By: #### [id number] #### [facility] Laboratory [address] [place] [address] Dr. Zheng KnowlesPerformed by:CommentNoTrinity Health System East Campus on above: Result Comment: Marni Zavala, Information Lead (ASCP) Performed at: WBPerformed By: #### [id number] #### [facility] [address] [place] [address] Dr. Zheng KnowlesSpecimechano adequacy:CommentLicking Memorial HospitalComment on above:Result Comment: Satisfactory for evaluation. Endocervical and/or squamous metaplastic cells (endocervical component) are present. Performed at: WBPerformed By: #### [id number] #### [facility] [address] [place] [address] Dr. Zheng KnowlesCHLAMYDIA/GONOCOCCUS ANDRADE (SWAB/URINE/PAPon 49-02-9852Qrerkmuht trachomatis, NAANegativeNormalNegativeMercy Health St. Vincent Medical CenterComment on above: Performed By: #### CT/NGNA #### [facility] [address] [place] [address] Dr. Zheng KnowlesNeisseria gonorrhoeae, NAANegativeNormalNegativeMercy Health St. Vincent Medical CenterComment on above:Performed By: #### CT/NGNA #### [facility] [address] [place] [address] Dr. Zheng KnowlesVAGINITIS/VAGINOSIS DNA PROBEon 27-89-7197Cqknsey speciesPositive AbnormalNegativeMercy Health St. Vincent Medical CenterComment on above:Performed By: #### VAGINT #### [facility] [address] [place] [address] Dr. Zheng Francisdnerella vaginalisNegativeNormalNegativeMercy Health St. [facility] Comment on above:Performed By: #### VAGINT #### [facility] [address] [place] [address] Dr. Zheng KnowlesTrichomonas vaginalisNegativermalNegativeMercy Health St. [facility] Medical Center Comment on above:Performed By: #### VAGINT #### [facility] [address] [place] [address] Dr. Zheng Knowles Vital Signs Date TimeVital SignValuePerforming JbpusnqhyPiovlktd90-31-4445 17:40-0400Body fabiyb414.1 cmMuhamid Chris FLORES Work Phone: 1(419)[address] [place], [place] 7294310-31-2025 17:40-0400 Body mass index (BMI) [Ratio]27.9 kg/h8MuebqzmIrma Perez MD Work Phone: 1(419)[address] [place], [place] 7294310-31-2025 17:40-0400 Body vrbhbzmabud50.3 [degF]Irma Perez MD Work Phone: 1(419)[address] [place], [place] 7294310-31-2025 17:40-0400 Body qrompm12.2 kgIrma Perez MD Work Phone: 1(419)[address] [place], [place] 7294310-31-2025 17:40-0400 Diastolic blood eyysckch31 mm[Hg]Irma Perez MD Work Phone: 1(419)[address] [place], [place] 7294310-31-2025 17:40-0400 Heart rate69 /minIrma Perez MD Work Phone: 1(419)[address] [place], [place] 7294310-31-2025 17:40-0400 Respiratory rate16 /minIrma Perez MD Work Phone: 1(419)[address] [place], [place] 7294310-31-2025 17:40-0400 SaO2% (BldA) [Mass fraction]98 %Irma Perez MD Work Phone: 1(419)[address] [place], [place] 7294310-31-2025 17:40-0400 Systolic blood rkzbqeea655 mm[Hg]Irma Perez MD Work Phone: 1(510)[address] [place], [place] 7294310-22-2025 13:43-0400 Body yigvqk157.1 cmCorey Ruma DO Work Phone: [facility] HospitalOrldsuuych69-80-6229 13:43-0400Body mass index (BMI) [Ratio]28.26 kg/d2Okhml Ruma DO Work Phone: [facility] HospitalOzdfduwlhj01-20-2950 13:43-0400Body lojuak61.02 kgCorey Ruma DO Work Phone: [facility] HospitalMixheqgiep36-56-2632 13:43-0400Diastolic blood xzemhueb98 mm[Hg]Aroldo Ruma DO Work Phone: 1([phone]-[facility], [facility] HospitalHgapxtxkwz52-97-1992 13:43-0400Systolic blood mganswnc015 mm[Hg]Aroldo Ruma DO Work Phone: 1(461)[facility] [place], [place] [address]Orvfattmir70-91-3860 10:29-0400Body mass index (BMI) [Ratio]28.81 kg/c5Ttkxe Ruma DO Work Phone: 1(412)[facility] [place], [place] [address]Vrswxnepbx50-04-5461 10:29-0400Body qqwuad04.53 kgCorey Ruma DO Work Phone: 1(876)[facility] [place] [address]-16-2025 10:29-0400Diastolic blood hfstooar89 mm[Hg]Aroldo Ruma DO Work Phone: 1(534)[facility] [place] [address]-16-2025 10:29-0400Systolic blood ewxtnshu871 mm[Hg]Aroldo Ruma DO Work Phone: 1(822)[facility] [place], [place] [address]Jphoglivli92-93-2943 11:37-0400Body mass index (BMI) [Ratio]26.79 kg/r9Xkhpr Ruma DO Work Phone: 1(913)[facility] [place], [place] [address]Yzypezpefe47-45-4071 11:37-0400Body uoewsh97.03 kgCorey Ruma DO Work Phone: 1(371)[facility] [place], [place] [address]Qwvtbrzrce40-88-1640 11:37-0400Diastolic blood czfkdajn02 mm[Hg]Aroldo Ruma DO Work Phone: 1(966)[facility] [place], [place] [address]Pppuclfrft81-03-8972 11:37-0400Systolic blood pmozcqvh074 mm[Hg]Aroldo Ruma DO Work Phone: 1(615)[address] [place], [place] 4926203-31-2025 16:06-0400Body mass index (BMI) [Ratio]27.12 kg/u7Gxtez Ruma DO Work Phone: 1(416)[facility] [place], [place] [address]Nkjrjzkprf20-76-1334 16:06-0400Body tekixq85.94 kgCorey Ruma DO Work Phone: 1(788)[facility] [place], [place] [address]Vdrhjysjar69-92-9120 16:06-0400Diastolic blood mm[Hg]Aroldo Ruma DO Work Phone: [facility] HospitalDwpobhbceo59-88-3203 16:06-0400Systolic blood bidjlwfg733 mm[Hg]Aroldo Ruma DO Work Phone: [facility] HospitalOjuahebbdq12-24-0667 12:16-0400Body idmnbb111.1 cmIrma Perez MD Work Phone: 1(419)[address] [place], [place] 7294303-15-2025 12:16-0400 Body mass index (BMI) [Ratio]0.8 kg/n9JainncdIrma Perez MD Work Phone: 1(419)[address] [place], [place] 7294303-15-2025 12:16-0400 Body hykedbalncq24.7 [degF]Irma Perez MD Work Phone: 1(419)[address] [place], [place] 7294303-15-2025 12:16-0400 Body weight2.4 kgIrma Perez MD Work Phone: 1(419)[address] [place], [place] 7294303-15-2025 12:16-0400 Diastolic blood xvlhjkui43 mm[Hg]Irma Perez MD Work Phone: 1(419)[address] [place], [place] 7294303-15-2025 12:16-0400 Heart rate63 /minIrma Perez MD Work Phone: 1(419)[address] [place], [place] 7294303-15-2025 12:16-0400 Respiratory rate18 /minIrma Perez MD Work Phone: 1(419)[address] [place], [place] 7294303-15-2025 12:16-0400 SaO2% (BldA) [Mass fraction]99 %Irma Perez MD Work Phone: 1(419)[address] [place], [place] 7294303-15-2025 12:16-0400 Systolic blood uqidgkgr435 mm[Hg]Irma Perez MD Work Phone: 1(419)[address] [place], [place] 7294302-01-2025 14:16-0500 Body piwnpg926.1 cmProm[facility]ica [facility]02-01-2025 14:16-0500Body mass index (BMI) [Ratio]25.9 kg/e0YhihnitknPromedica Defiance Regional Hospital02-01-2025 14:16-0500Body igzjkaomkmz23.9 [degF][facility]02-01-2025 14:16-0500Body vyhpjr51.87 kgPromedica Defiance Regional Hospital02-01-2025 14:16-0500Diastolic blood mm[Hg][facility] 07-11-2024 14:16-0500Heart rate75 /[facility] 07-11-2024 14:16-0500Respiratory rate19 /[facility] 07-11-2024 14:16-7016TqC8% (BldA) [Mass fraction]97 %[facility]02-01-2025 14:16-0500Systolic blood mm[Hg][facility]07-20-2024 14:13-0400Body ilxhrp366.1 cmAPRN Elenita Madiha Work Phone: [facility]07-20-2024 14:13-0400 Body mass index (BMI) [Ratio]25.7 kg/m2APRN Elenita Madiha Work Phone: [facility]07-20-2024 14:13-0400 Body zvvplhoumuz39.6 [degF][employer] LEADER Elenita Madiha Work Phone: [facility]07-20-2024 14:13-0400 Body itnbeu70.3 kgAPRN Elenita Madiha Work Phone: [facility]07-20-2024 14:13-0400 Heart rate60 /minAPRN Elenita Madiha Work Phone: [facility]07-20-2024 14:13-0400 Respiratory rate18 /minAPRN Elenita Madiha Work Phone: [facility]07-20-2024 14:13-0400 SaO2% (BldA) [Mass fraction]99 %[employer] LE[employer]ER Elenita Madiha Work Phone: [facility]06-10-2024 16:34-0400 Body euqxwq849.1 cmPromedica Defiance [facility] Hospital06-10-2024 16:34-0400Body mass index (BMI) [Ratio]25 kg/k0XsysufgpmPromedica Defiance Regional Hospital06-10-2024 16:34-0400Body wkfcmuhbpxa26.2 [degF][facility]06-10-2024 16:34-0400Body egriug30.03 kgPromedica Defiance Regional Hospital06-10-2024 16:34-0400Heart rate86 /[facility]06-10-2024 16:34-0400Respiratory rate18 /[facility]06-10-2024 16:34-5579WlD3% (BldA) [Mass fraction]99 %[facility] Encounters Encounter DateEncounter TypeCare ProviderFacilityStart: 04-09-2025 End: 79-75-1703ohtlmfvfvlIvibiyk Chris FLORES Work Phone: -[facility] ClydeStart: 04-09-2025 End: 59-76-8781Yiojlqi encounter procedurePatricfrank Case GR[employer] LEADER-[facility] [place] Work Phone: Start: 03-31-2025 End: 04-36-6391Nzqafk flowsheetCorey Ruma DO Work Phone: noMS [facility] OBGYNStart: 03-31-2025 End: 87-45-2455Mtirjc flowsheetCorey Ruma DO Work Phone: noMS [facility]BGYNStart: 03-31-2025 End: 27-19-6713Lwmcmn outpatient visit 15 minutesCorey Ruma DO Work Phone: noMS [facility] OBGYNComment on above:Pre-op examination; Request for sterilizationStart: 03-31-2025 End: 33-20-5760Ankculqrlrowp examination doneCorey Ruma DO Work Phone: [facility] HealthcareStart: 03-31-2025 End: 69-93-2892tanspterdaPPNDK FAZIONot AvailableStart: 02-23-2025 End: 13-53-7155Airlsa flowsheetCorey Ruma DO Work Phone: [facility]BGYNStart: 02-23-2025 End: 75-13-2407Cbrnwq flowsheetCorey Ruma DO Work Phone: [facility] OBGYNStart: 02-23-2025 End: 25-49-2935Girgvc outpatient visit 15 minutesCorey Ruma DO Work Phone: [facility] OBGYNComment on above:Encounter to discuss procedure; Request for sterilizationStart: 02-23-2025 End: 03-51-3400buelgrdzyxFMEBS FAZIONot AvailableStart: 10-01-2024 End: 44-65-7234Epvajp flowsheetCorey Ruma DO Work Phone: [facility] BCP OBStart: 10-01-2024 End: 25-77-9803Uhhysw flowsheetCorey Ruma DO Work Phone: [facility] BCP OBStart: 10-01-2024 End: 84-53-6929Xktiwz outpatient visit 15 minutesCorey Ruma DO Work Phone: [facility] BCP OBComment on above:Vaginal dischargeStart: 10-01-2024 End: 57-45-5206oxsnmmxfwgZTFMP FAZIONot AvailableStart: 09-10-2024 End: 68-32-7236Rkilgzket encounterEricka Dendinger MEDICAL NUMERICAL CONTROL OPERATOR Work Phone: [facility] BCP OBStart: 09-07-2024 End: 01-28-6147Sguksqz encounter procedureCorey Ruma DO Work Phone: [facility] HealthcareStart: 09-07-2024 End: 38-12-8032Tivaucrv preventive med est patient 18-39 yrsCorey Ruma DO Work Phone: [facility] BCP OBComment on above:Bacterial vaginosis (Primary Dx); Well woman exam with routine gynecological exam; Possible exposure to STI; Yeast infectionStart: 09-07-2024 End: 77-12-7655watmdscxziQTIHO FAZIONot AvailableStart: 09-07-2024 End: 14-41-9988Pxkffk flowsheetCorey Ruma DO Work Phone: [facility] BCP OBStart: 09-07-2024 End: 14-70-4319Ubucds flowsheetCorey Ruma DO Work Phone: NOQT BCP OBStart: 09-07-2024 End: 81-34-8987Xzrybssvc Result EncounterCorey Ruma DO Work Phone: [facility] External Department UnsolicitedStart: 09-07-2024 End: 46-76-1256Itxlsimf Result EncounterCorey Ruma DO Work Phone: [facility] External Department UnsolicitedStart: 08-22-2024 End: 75-55-2356Jyncapey Nico Perez MD Work Phone: [facility] [place] Work Phone: Start: 08-22-2024 End: 19-66-7322twsbfrqzmwUyqezhl Asif MD Work Phone: [facility] Work Phone: Start: 08-22-2024 End: 87-11-5372Jhhdbsw encounter procedureIrma Perez MD Work Phone: [facility] [place] Work Phone: Start: 07-11-2024 End: 65-32-5433Wlyzfmws Nico Perez MD Work Phone: [facility] [place] Work Phone: Start: 07-11-2024 End: 14-39-8980rrekntdnuvEtmhnie Asif MD Work Phone: [facility] Work Phone: start: 07-11-2024 End: 73-82-2543Anwxwhk encounter procedureF[facility] Work Phone: Start: 12-28-2023 End: 39-75-0882Tscqnowf ReferredAPRChano Cleary Work Phone: [facility] [place] Work Phone: Start: 12-28-2023 End: 43-65-7662ybkjvhptgmZwhquh M [facility] Work Phone: Start: 12-28-2023 End: 75-82-1410Iyilnkt encounter procedureAPRN Elenita Ramosb Work Phone: [facility] [place] Work Phone: Start: 11-18-2023 End: 25-21-7880Osexjwyw ReferredAPRN Elenita Cleary Work Phone: [facility] [place] Work Phone: Start: 11-18-2023 End: 03-75-0609nyqfslxlcvLtznsg [facility] Work Phone: Start: 11-18-2023 End: 45-42-3909Ademtne encounter procedureFirsthealth [facility] [place] Work Phone: Start: 08-20-2023 End: 57-53-4289Jxbizrlib Result EncounterCorey Ruma DO Work Phone: [facility] External Department UnsolicitedStart: 08-20-2023 End: 14-92-5048Orirdkvgu Result EncounterCorey Ruma DO Work Phone: [facility] External Department UnsolicitedStart: 07-16-2022 End: 82-18-2908fcowcoqbjcNS AROLDO FAZIOFacility:I1Tphqn: 08-29-2021 End: 63-58-9380jxnmeaclaoVC AROLDO FAZIOFacility:H1 Procedures DateProcedureProcedure DetailPerforming ClinicianStart: 63-68-6602Aadpu dip stick/tablet rgnt non-auto w/o micrscpCorey Ruma DO Work Phone: Start: 26-22-2402Nvdre dip stick/tablet rgnt non-auto w/o micrscpCorey Ruma DO Work Phone: Start: 27-00-9236MVH,APTIMA HPV,AGE GDLNCorey Ruma DO Work Phone: Start: 55-03-6761UXIWGVJLP VAGINITIS (HTRX)Aroldo Ruma DO Work Phone: Start: 62-79-6457Yfyovyvqkhs observation [Identifier] in Cervix by Cyto stainCorey Ruma DO Work Phone: Start: 83-06-6341Vkbgp cultureAPRN Elenita Madiha Work Phone: Start: 80-45-8363QO PELVIS TRANSVAGINALCorey Ruma DO Work Phone: History of tonsillectomyHistory of tonsillectomy Plan of Treatment DateCare ActivityDetailAuthorStart: 84-11-5895Btoagiroa for malignant neoplasm of cervixNOMS HealthcareStart: 09-14-2025 End: 93-60-6474Ixmfmho encounter procedureNOMS BCP OBStart: 03-31-2025 End: 55-16-1705Ykfpcsf encounter procedureNOMS Afia OBGYNComment on above: ArrivedStart: 02-23-2025 End: 67-55-7702Idufizd encounter utieybqbi75/16/2025 10:10 AM EDT Office Visit [facility] [address] [place] [address] Aroldo Hendrix, DO [address] [place] [address] ArrivedNOMS [place] OBGYNComment on above:ArrivedStart: 51-87-5092Wpqljmmem vaccinationInfluenza Vaccine (#1)[facility] HealthcareStart: 10-15-2024 End: 98-07-0885Sxpnqym encounter okgawtiiv36/08/2025 8:10 AM EDT Office Visit [facility] [address] [place] [address] Aroldo Hendrix, DO [address] [place] [address] [facility] BCP OBStart: 10-01-2024 End: 52-43-8551Silubto encounter pobefygjm74/24/2025 11:30 AM EDT Office Visit [facility] [address] [place] [phone] Aroldo Hendrix, DO [address] [place] [address] ArrivedNOMS BCP OBComment on above:ArrivedStart: 09-07-2024 End: 93-19-7582Mbmqbrr encounter /31/2025 3:40 PM EDT Office Visit [facility] [address] [place] [address] Aroldo Hendrix, DO [address] [place] [address] ArrivedNOMS BCP OBComment on above:ArrivedStart: 74-05-1914YopxhucmmSCCI Hospital Limatart: 23-70-1145YoodghojvSCCI Hospital Limatart: 34-85-6110Irpqcbpjv vaccinationInfluenza Vaccine (#1)[facility] HealthcareStart: 84-78-6143Dkiixlwq identified in Urine by CultureSCCI Hospital Limatart: 65-29-8632Yqrvdswy identified in Urine by Culture [facility]: 86-10-0456EafvjviopSCCI Hospital Limatart: 83-99-2332Pjgjgixw identified in Urine by CultureSCCI Hospital Limatart: 62-50-0982Ooxtjosge for malignant neoplasm of cervixNOWY HealthcareStart: 26-80-2674Jqmbegfbt for malignant neoplasm of cervixPap Smear [facility] HealthcareAtopobium vaginae DNA [Presence] in Vaginal fluid by ANDRADE with probe detectionPromedica Defiance Regional HospitalAtopobium vaginae DNA [Presence] in Vaginal fluid by ANDRADE with probe detectionPromedica Defiance Regional Hospital Atopobium vaginae DNA [Presence] in Vaginal fluid by ANDRADE with probe detection [facility] HospitalBacteria identified in Urine by Culture [facility] HospitalBacterial vaginosis associated bacterium 2 DNA [Presence] in Vaginal fluid by ANDRADE with probe detectionPromedica Defiance Regional HospitalBacterial vaginosis associated bacterium 2 DNA [Presence] in Vaginal fluid by ANDRADE with probe detectionPromedica Defiance Regional Hospital Bacterial vaginosis associated bacterium 2 DNA [Presence] in Vaginal fluid by ANDRADE with probe detectionPromedica Defiance Regional HospitalCytology Cervical or vaginal smear or scraping studyPap Smear Pathology and Cytology Routine Well woman exam with routine gynecological exam Ordered: 09/07/2024[facility] Work Phone: comment on above:Ordered: 09/07/2024Human papilloma virus DNA [Presence] in Unspecified specimen by Probe with amplificationHPV DNA probe, amplified Microbiology Routine Well woman exam with routine gynecological exam Ordered: 09/07/2024[facility] HospitalComment on above:Ordered: 09/07/2024 Megasphaera sp type 1 DNA [Presence] in Vaginal fluid by ANDRADE with probe detectionPromedica Defiance Regional HospitalMegasphaera sp type 1 DNA [Presence] in Vaginal fluid by ANDRADE with probe detectionPromedica Defiance Regional Hospital Megasphaera sp type 1 DNA [Presence] in Vaginal fluid by ANDRADE with probe detectionSan Francisco [facility] Medical Center Immunizations Immunization DateImmunizationNotesCare TyupfrtwZsaasfzi84-92-0582tfkljdixu virus vaccine, unspecified formulationCorey Ruma DO Work Phone: [facility] Healthcare Payers DatePayer CategoryPayerPolicy [id number]-cfg [id number] Health [place] [id number] [id number] 2..1.146488.3.57[id number] 2..1.324176.3.57[id number] 2..1.484884.3.57[id number] 2..1.991748.3.57[id number] 2..1.776327.3.57[id number] 2..1.999913.3.579.2.149079-51-4132Gaabdap2977714998-21-2278Nlkzmkr [id number] 2.0.1.9[id number] 2.0.1.41[id number] 2.0.1.194561.3.579.2.531 [id number] [id number]'s [id number] Social History DateTypeDetailFacilityStart: 06-27-2023 End: 67-07-4260Nceqsou smoking status NHISNever smoked tobacco (finding) [facility]: 98-54-2912Dte Assigned At BirthFeLima City Hospitaltart: 07-11-2024 End: 94-45-1736PngCrwdik (finding)[facility]: 24-52-2982Xbmidhg use and exposureSmokeless tobacco non-userNOMS Healthcare Start: 06-27-2023 End: 36-11-5060Fwcknierm beverage intakeCurrent drinker of alcohol (finding)[facility] HealthcareStart: 06-27-2023 End: 53-79-9422Zzbirbb of Social functionNOMS HealthcareStart: 06-27-2023 End: 32-59-9239Vrtlntn use panelNOWY HealthcareStart: 23-75-6182Ssdjjkd Comment occasionalNOMS HealthcareStart: 63-98-8694Abe assigned at birthNot on fileACADIA HEALTHCARE HealthcareStart: 79-75-7434MsoBrsfpuVQET Healthcare Clinical Notes 07-11-2024 to 03-31-2025 Note Date & RgeyAngwMptgviyn36-58-7428 History of Present illness Narrative* Stefania Donaldson - 03/31/2025 1:40 PM EDT Reason for Appointment: Patient ID: Raj Waite is a 35 y.o. female who presents for Pre-op Visit Patient presents today for Pre Op appointment. Patient is scheduled to undergo Da Delmi assisted Bilateral Laparoscopic Salpingectomy on 04/30/[address] Hendrix at [facility]. MEDICATIONS Current Outpatient Medications Medication Instructions ascorbic [...] Respiratory: Negative. Cardiovascular: Negative. Gastrointestinal: Negative. Genitourinary: Negative. Musculoskeletal: Negative. Skin: Negative. Neurological: Negative. All other systems reviewed and are negative. Hematological: Negative. Endocrine: Negative. Allergic/Immunologic: Negative. OBJECTIVE Objective: Physical Exam Constitutional: Appearance: Normal appearance. She is well-developed. Cardiovascular: Rate and Rhythm: Normal rate and [...] nursing note reviewed. Exam conducted with a firer powerhouse present. Vitals: Estimated body mass index is 28.26 kg/m as calculated from the following: Height as of this encounter: 5' 5 . Weight as of this encounter: 169 lb 12.8 oz. BP: 118/72 No LMP recorded. Patient has had an implant. ASSESSMENT & PLAN ICD-10-CM 1. Pre-op examination Z01.818 2. Request for sterilization Z30.2 Pre Op: Patient is doing well but has desire for sterilization. I have discussed conservative management vs. surgical management with the patient in detail and patient desires surgical management at this time. Patient has voiced understanding that a Bilateral Salpingectomy is considered to be permanent and patient will undergo Da Delmi assisted Bilateral Laparoscopic Salpingectomy on 04/30/2025. Surgicalconsents were signed, mmc was reviewed, and patient is to proceed to [facility] OR. Follow Up: Patient is to follow up between 1-2 weeks post op to assess proper healing and recovery from procedure. Documented by Di Palmer LPN on behalf of: Aroldo Hendrix DO documented in this encounterSaint Luke's East [id number] History of Present illness Narrative* Di Palmer LPN - 02/23/2025 10:10 AM EDT Reason for Appointment: Patient ID: Raj Waite is a 34 y.o. female who presents for Discuss procedure Patient presents today for Consult appointment. MEDICATIONS Current Outpatient Medications Medication Instructions ascorbic [...] Onset Arthritis Father Diabetes Brother SURGICAL HISTORY No past surgical history on file. REVIEW OF SYSTEMS Review of Systems: Review of Systems Constitutional: Negative. HENT: Negative. Eyes: Negative. Respiratory: Negative. Cardiovascular: Negative. Gastrointestinal: Negative. Genitourinary: Negative. Musculoskeletal: Negative. Skin: Negative. Neurological: Negative. All other systems reviewed and are negative. Hematological: Negative. Endocrine: Negative. Allergic/Immunologic: Negative. OBJECTIVE Objective: Physical Exam Constitutional: Appearance: Normal appearance. She is well-developed. Cardiovascular: Rate and Rhythm: Normal rate and [...] nursing note reviewed. Exam conducted with a firer powerhouse present. Vitals: Estimated body mass index is 28.81 kg/m as calculated from the following: Height as of 07/16/22: 5' 5 . Weight as of this encounter: 173 lb 1.9 oz. BP: 116/74 No LMP recorded. Patient has had an implant. ASSESSMENT & PLAN ICD-10-CM 1. Encounter to discuss procedure Z71.89 2. Request for sterilization Z30.2 Patient presents to the office today stating she has a desire for sterilization. I have discussed with the patient that a Bilateral Salpingectomy is considered to be permanent and patient has voiced verbal understanding. Patient wishes to schedule for a Da Delmi assisted Bilateral Laparoscopic Salpingectomy. Patient will set up surgery with surgical supervisor and return to our office for a pre op appointment. Documented by Di Palmer LPN on behalf of: Aroldo Hendrix DO documented in this encounterSaint Luke's East HospitalUzzrysqjeo87-95-1800 History of Present illness Narrative* Chely Lopez MA - 10/01/2024 11:30 AM EDT Reason for Appointment: Patient ID: Raj aWite is a 34 y.o. female who presents for Vaginal Discharge (Pt present today for chronic vaginal discharge issues. Pt was seen on 09/07/2024 for vaginal discharge/yeast infectionissues at her annual appt. ) Patient presents today for vaginal discharge/STD Check. MEDICATIONS Current Outpatient Medications Medication Instructions ascorbic [...] SYSTEMS Review of Systems: Review of Systems Genitourinary: Positive for vaginal discharge. All other systems reviewed and are negative. OBJECTIVE Objective: Physical Exam Constitutional: Appearance: Normal appearance. She is well-developed. Genitourinary: Vulva normal. Right Adnexa: not tender and no mass present. Left Adnexa: not tender and no mass present. No cervical discharge. Breasts: Breasts are soft. Right: Normal. Left: Normal. HENT: Head: Normocephalic. Nose: Nose normal. Mouth/Throat: Mouth: Mucous membranes are moist. Cardiovascular: Rate and Rhythm: Normal rate and regular rhythm. Pulmonary: Effort: Pulmonary effort is normal. Breath sounds: Normal breath sounds. Abdominal: General: Bowel sounds are normal. There is no distension. Palpations: Abdomen is soft. Tenderness: There is no abdominal tenderness. There is no guarding or rebound. Musculoskeletal: General: No swelling. Normal range of motion. Cervical back: Normal range of motion. Right lower leg: No edema. Left lower leg: No edema. Neurological: General: No focal deficit present. Mental Status: She is alert and oriented to person, place, and time. Skin: General: Skin is warm and dry. Psychiatric: Mood and Affect: Mood normal. Behavior: Behavior normal. Vitals and nursing note reviewed. Exam conducted with a firer powerhouse present. Vitals: Estimated body mass index is 26.79 kg/m as calculated from the following: Height as of 07/16/22: 5' 5 . Weight as of this encounter: 161 lb. BP: 110/64 No LMP recorded (lmp unknown). Patient has had an implant. ASSESSMENT & PLAN ICD-10-CM 1. Vaginal discharge N89.8 POCT urinalysis dipstick manually resulted Patient states she is still having the chronic vaginal discharge and would like cx's done at this visit. Pt would like to discuss any future treatment/options at today's visit to avoid constant yeastinfections/discharge. Cx's were collected by Dr. Hendrix and sent out to lab. Pt is aware it takes about 1-2 days for results to come back. Pt will be contacted if anything abnormal is detected. PVU. Discussed possible 2 week treatment with patient. TeleHealth appointment in 2 weeks. Flagyl sent to patients pharmacy in the meantime to see if symptoms improve. Documented by Chely Lopez MA & Danyelle Navarro LPN on behalf of: Aroldo Hendrix DO documented in this encounterSaint Luke's East HospitalMmbahknkuf11-66-0063 Telephone encounter Note* Telephone Encounter - Rosa Zaman LPN - 09/10/2024 3:14 PM EDT Hi, I this is Raj Burton. I had an appointment on Saturday with Ruma for my annual I have also beendealing with a very resistant yeast infection for the last 2 months. So he did some testing. He said that by Saturday so yesterday that I should have heard back about my results based on my results.He was going to do 1 of 2 treatments for my yeast infection. 1 was going to be a very long treatment of flu conal or the other 1 was going to be 1 pill of like some 170 dollars pill. I do not remember what the name of that was called, but I was just calling to hopefully get my Results back because it is kind of frustrating dealing with this infection. But if you could give me a call back, please.It is [phone]. With what would like to do with my situation. Thank you, cornel. Pt's culture came back completely negative. What would you like me to do? [facility] [id number] Miscellaneous Notes* Telephone Encounter - Rosa Zaman LPN - 09/10/2024 3:14 PM EDT Corbin, I this is Raj Burton. I had an appointment on Saturday with Ruma for my annual I have also beendealing with a very resistant yeast infection for the last 2 months. So he did some testing. He said that by Saturday so yesterday that I should have heard back about my results based on my results.He was going to do 1 of 2 treatments for my yeast infection. 1 was going to be a very long treatment of flu conal or the other 1 was going to be 1 pill of like some 170 dollars pill. I do not remember what the name of that was called, but I was just calling to hopefully get my Results back because it is kind of frustrating dealing with this infection. But if you could give me a call back, please.It is [phone]. With what would like to do with my situation. Thank you, bye. Pt's culture came back completely negative. What would you like me to do? documented in this encounterSaint Luke's East HospitalKtjhjiopfu02-51-1938 History of Present illness Narrative* Marissa Villavicencio, GRETA - 09/07/2024 3:40 PM EDT Reason for Appointment: Patient ID: Raj Waite is a 34 y.o. female who presents [...] nursing note reviewed. Exam conducted with a firer powerhouse present. Vitals: Estimated body mass index is 27.12 kg/m as calculated from the following: Height as of 07/16/22: 5' 5 . Weight as of this [...] of recurrent yeast. Plan is to trial Dock Loader azole or Diflucan 100 mg daily for 14 days will wait for culturesprior to treatment. Given findings on exam with vaginal discharge consistent with BV treatment for Flagyl is sent to pharmacy. Documented by Marissa Villavicencio NP on behalf of: Aroldo Hendrix DO documented in this encounterSaint Luke's East HospitalIhghmdpfmt23-70-9363 Evaluation note* Diagnosis Onset Date Resolution Status Admit Date Vaginal discharge acuteFebruary 2024 1:55pm [facility] Work Phone: 1(750) 624-187602-01-2025 Evaluation note* Diagnosis Onset Date Resolution Status Admit Date Vaginal discharge acuteFebruary 2024 1:55pmVaginal dischargeacuteMarch 2024 11:58am [facility] Work Phone: Evaluation note* Diagnosis Onset Date Resolution Status UTI (urinary tract infection) acuteMalodorous urinenoneactive [facility] Work Phone: evaluation note* Diagnosis Onset Date Resolution Status Malodorous urine noneactive [facility] Work Phone: Evaluation note* Diagnosis Onset Date Resolution Status UTI (urinary tract infection) acuteMalodorous urinenoneactiveUTI (urinary tract infection)acute [facility] Work Phone: evaluation noteNo assessment information available [facility] Work Phone: evaluation note* Diagnosis Bacterial vaginosis- Primary Unspecified vaginitis and vulvovaginitis Well woman exam with routine gynecological exam Routine gynecological examination Possible exposure to STI Yeast infection documented in this encounter [facility] HealthcareEvaluation note* Diagnosis Vaginal discharge Leukorrhea, not specified as infective documented in this encounter [facility] HealthcareEvaluation note* Diagnosis Encounter to discuss procedure Request for sterilization documented in this encounter [facility] HealthcareEvaluation note* Diagnosis Pre-op examination Request for sterilization documented in this encounter [facility] HealthcareEvaluation note* Diagnosis Onset Date Resolution Status Admit Date Puncture wound acuteOctober 2024 5:38pm [facility] Work Phone: Reason for referral (narrative)No reason for referral information availableSelect [facility] [place] Work [facility]: Summary Purpose Family History Relationship Condition Age at Onset Recorded Date/T suad Not Specified Hypothyroidism Unknown brotherDiabetes mellitusUnknown Relationship Condition Age at Onset Recorded Date/T suad mother Hypothyroidism Unknown brotherDiabetes mellitusUnknown Advance Directives Advance Directive Response Recorded Date/ Time Advance Directives No October 20 7:40am Advance Directive Response Recorded Date/ Time Advance Directives No October 20 6:40am Chief Complaint and Reason for Visit Chief Complaint Poss UTI Malodorous urineReason for VisitUTI (urinary tract infection) Malodorous urine Chief Complaint Poss UTI Reason for Visit Malodorous urine Chief Complaint Poss UTI r82.90 poss utiReason for VisitUTI (urinary tract infection) Malodorous urine Chief Complaint Poss UTI r82.90 poss uti DysuriaReason for VisitUTI (urinary tract infection) Malodorous urine UTI (urinary tract infection) Chief [...] Vaginal discharge August 22, 2024 11: 58am Chief Complaint Admit Date Right palm puncture wound April 09, 2025 5:38pm Reason for Visit Admit Date Puncture wound April 09, 2025 5 :38pm Additional Source Comments INFORMATION SOURCE (unrecogn ized section and content) DATE CREATED AUTHOR 07/24/2022 [facility] DATE CREATED AUTHOR AUTHOR'S ORGANIZ ATION 08/28/2024 [facility] DATE CREATED AUTHOR AUTHOR'S ORGANIZ ATION 04/02/2025 [facility] EPIC Care Teams (unrecognized sec tion and content) Team Status: Active Member Role Status Dates Irma Perez MD Primary Care Provider Active Team Status: Inactive Member Role Status Dates Elenita Cleary APRN Attending Provider Active S tart: November 18, 2023 End: November 18, 2023Muhamid Chris , MDPrimary Care ProviderActiveStart: November 18, 2023 End: November 18, 2023 Team Status: Inactive Member Role Status Dates Elenita Cleary APRN Attending Provider Active S tart: November 18, 2023 End: November 18, 2023 Team Status: Active Member Role Status Dates NON STAFF Primary Care Provider Active Team Status: Inactive Member Role Status Dates Annabella Landa APRN Attending Provider Active Start: December 28, 2023 End: December 28, 2023NON STAFFPrimary Care ProviderActiveStart: December 28, 2023 End: December 28, 2023 Team Status: Inactive Member Role Status Dates Annabella Landa APRN Attending Provider Active Start: December 28, 2023 End: December 28, 2023 Team Status: Inactive Member Role Status Dates Annabella Landa APRN Attending Provider Active Start: July 11, 2024 End: July 11, 2024Muhamid Chris , MDPrimary Care ProviderActiveStart: July 11, 2024 End: July 11, 2024 Team Status: Inactive Member Role Status Dates Irma Perez MD Primary Care Provider Active S tart: August 22, 2024 End: August 22Davion Tolentino ProviderActiveStart: August 22, 2024 End: August 22, 2024 Team Status: Inactive Member Role Status Dates Elenita Cleary APRN Attending Provider Active S tart: August 22, 2024 End: August 22, 2024Team MemberRelationshipSpecialtyStart DateEnd Date [facility]ma Perez [facility]/23Team MemberRelationshipSpecialtyStart DateEnd Date Irma Perez MD [facility] - [facility]08/12/23Team MemberRelationshipSpecialtyStart DateEnd Date Irma Perez MD PCP - [facility]08/12/23Team MemberRelationshipSpecialtyStart DateEnd Date Irma Perez MD PCP - [facility]08/12/23Team MemberRelationshipSpecialtyStart DateEnd Date Irma Perez MD PCP - [facility]08/12/23Team MemberRelationshipSpecialtyStart DateEnd Date Irma Perez MD PCP - [facility]08/12/23Team MemberRelationshipSpecialtyStart DateEnd Date Irma Perez MD PCP - [facility]08/12/23Team MemberRelationshipSpecialtyStart DateEnd Date Irma Perez MD PCP - [facility]08/12/23 Team Status: Active Member Role/Relationship Status Dates Irma Perez MD Primary Care Provider Active Team Status: Inactive Member Role/Relationship Status Dates AJIT Nava RN PAINT STOCK CLERK-C Attending Provider Active Start: April 09, 2025 End: April 09, 2025Ilaan Salinas Care ProviderActiveStart: April 09, 2025 End: April 09, 2025 Goals (unrecognized section and content) Goals may [...] for Visit (unrecogniz ed section and content) ReasonCommentsGynecologic ExamPt complains of having a chronic yeast infection that does not go away completley. Pt was seen in Urgent care in Jul and August for the yeast infection. Was given diflucan at both appointments and advised at the August appt to also do the Monostat along w/the Diflucan. Pt states it got worse. Now hashad thick white discharge. Pt desires to have cx's done along w/her annual.ReasonCommentsVaginal DischargePt present today for chronic vaginal discharge issues. Pt was seen on 09/07/2024 for vaginal discharge/yeast infection issues at her annual appt.ReasonCommentsDiscuss procedureReason CommentsPre-op Visit FOR RECORDS PERTAINING TO PATIENTS WHO ARE [...] BE BASED ON THE PRIMARY CLINICAL RECORDS. [employer] provides no warranty or guarantee of the accuracy or completeness of information in this document.
== END 2025-04-15 12:11 | disposition home or self-care (01) ==
LOC: PST 12:12
PROVIDERS: Visit Provider Obstetrics & Gynecology
DX: Z01.818 Encounter for other preprocedural examination (principal)

== ENCOUNTER 2025-04-29 10:56 | Day surgery (SDC) | payer OTHER, SELFPAY ==
[2025-04-15 12:47] VITALS: BP 125/85; PULSE 62; TEMP 36.2; O2SAT 99; BMI 28.0
[2025-04-29] VITALS (15 sets, daily range): BP systolic 88–125; BP diastolic 58–83; PULSE 61–82; TEMP 35.9–36.3; O2SAT 91–100; BMI 26.2
--- OUTSIDE RECORDS SUMMARY | 2025-04-29 11:00 | XMS_ITS | Clinical Summary ---
Author Organization [facility] Address [address] [place] [address] Care Team Providers Care State Comptroller Name Role Phone Irma Perez MD Primary Care Provider [phone] Allergies Active AllergyReactionsCriticalityNoted EqumWotdmuwnKrvqay87/26/2019Penicillin G 07/17/2023 Other Reaction(s): Unknown Eqdqafrxkbe99/26/2019 Other Reaction(s): Not available Medications MedicationSigDispense QuantityRefillsLast [...] MG-MCG tablet Calcium + DActive Encounters DateTypeDepartmentCare YkcfRlkzgzfvkog85/22/2025 1:40 [address] [place] [address] Chele Hendrix DO Pre-op examination; Request for ybhdfaoowadpl79/22/2025amboo flowsheet [address] [place] [address] Chele Hendrix DO 03/30/20253031Xpbirk93/16/2025 10:10 AM EDTOffice Visit [facility] [address] [place] [address] [place] [address] Chele Hendrix DO Encounter to discuss procedure; Request for ifnimlmmjvgwz49/16/2025Bamboo flowsheet [facility] [address] [address] [place] [address] [place] [address] Chele Hendrix DO from Last 3 Months Family History Medical HistoryRelationNameCommentsDiabetesBrotherArthritisFatherRelationName FkjtqiQloouhylMxuygrqm3Uqujxf Social History Tobacco UseTypesPacks/DayYears UsedDateSmoking Tobacco: NeverSmokeless Tobacco: NeverAlcohol UseStandard Drinks/WeekCommentsYes0 (1 standard drink = 0.6 oz pure alcohol)occasionalCommentsNoSex and Gender InformationValueDate Recorded Sex Assigned at BirthNot on fileLegal GtyFfsodg35/15/2023 11:47 PM EDTGender IdentityNot on fileSexual OrientationNot on file Last Filed Vital Signs Vital SignReadingTime TakenCommentsBlood Kkklureh977/7203/31/2025 1:43 PM EDT Pulse--Temperature--Respiratory Rate--Oxygen Saturation--Inhaled Oxygen Concentration--Dnmfjp01 kg (169 lb 12.8 oz)03/31/2025 1:43 PM BFFPicjml923.1 cm (5' 5 )03/31/2025 1:43 PM EDTBody Mass Index28.261 1:43 PM EDT Plan of Treatment DateTypeDepartmentCare Team (Latest Contact Info)Mytsnlrkwkr86/21/2025Abstract [address] [place] [address] [place] [address] Chele Hendrix DO [address] [place] [address] [place] [address] 09/14/2025 8:30 AM EDTOffice Visit [facility] [address] [place] [address] [place] [address] Chele Hendrix, [address] [place] [address] [place] [address] Health MaintenanceDue DateLast DoneCommentsHPV/Qsgjhr4603/04/2019COVID-19 Vaccine (2024- season)508/, 01/06/2021Influenza Vaccine (#1) 501/08/2024, 03/06/2023, 03/16/2022, Additional history existsCervical Cancer Jrdsjxkno81/31/2028Pap Smear8009/07/2024Pneumococcal Vaccine: Pediatrics (0 to 5 Years) [...] Team MemberRelationshipSpecialtyStart DateEnd Date Irma Perez MD [address], [facility] [place] [address] [facility]
--- OUTSIDE RECORDS SUMMARY | 2025-04-29 11:01 | XMS_ITS | Clinical Summary ---
Author Organization [facility] Address [address] [place] [address], [address] [place] [address] Care Team Providers Care Business Intelligence Analyst Name Role Phone Unavailable Primary Care Provider Unavailabl e Social History Tobacco UseTypesPacks/DayYears UsedDateSmoking Tobacco: Never Assessed CommentsUnknownSex and Gender InformationValueDate RecordedSex Assigned at Not on fileLegal TghPfjmij30/10/2013 10:46 AM ESTGender IdentityNot on file Sexual OrientationNot on file Plan of Treatment Not on file
--- OUTSIDE RECORDS SUMMARY | 2025-04-29 11:01 | XMS_ITS | Clinical Summary ---
Author Organization [facility] tem Address [id number] [address] [place] [address] Care Team Providers Care Policy Officer Name Role Phone Unavailable Primary Care Provider Unavailabl e Allergies Active AllergyReactionsCriticalityNoted MdffWxemnjbnDwfizl38/26/2019Penicillins 03/05/2019 Medications MedicationSigDispense QuantityRefillsLast FilledStart DateEnd DateStatus multivit-min/ferrous fumarate (MULTI VITAMIN ORAL) Take by mouth daily.Active ESTARYLLA 0.25-35 mg-mcg per tablet Take 1 tablet by mouth daily.11002/12/2019Active Active Problems No known active problems Immunizations ImmunizationAdministration DatesNext DueInfluenza, Injectable, quadrivalent (PF) 07/18/2021,02/23/2019,03/15/2018Influenza, Vdulmdohgyo62/23/2020 Family History Medical HistoryRelationNameCommentsLupusMaternal UncleRelationNameStatusComments Maternal UncleGreat Uncle Social History Tobacco UseTypesPacks/DayYears UsedDateSmoking Tobacco: NeverSmokeless Tobacco: NeverAlcohol UseStandard Drinks/WeekCommentsYes0 (1 standard drink = 0.6 oz pure alcohol)occasionallyPHQ-2AnswerDate RecordedTotal Lalip6852Childcare AnswerDate RqcrdwraWqkxxmtujHkuftdg52/12/2019EmploymentAnswerDate Recorded MrewjczlerPxewlia66/12/2019Purpose - LifeAnswerDate RecordedPurpose and direction in mrlyOrohrzo39/11/2021CommentsNoSex and Gender Information ValueDate RecordedSex Assigned at BirthNot on fileLegal WgkCarvoy77/06/2015 11:40 AM EDTGender IdentityNot on fileSexual OrientationNot on file Last Filed Vital Signs Vital SignReadingTime TakenCommentsBlood Wcqzukeo556/72007/18/2021 8:32 AM EST Uoctq3196 8:32 AM OUDXwlvxedojnj01 ??C (96.8 ??F)09/29/2020 4:29 PM EDT Respiratory Rate--Oxygen Pfmdxmqxkg604%07/18/2021 8:32 AM ESTInhaled Oxygen Concentration--Fmxztn34.2 kg (150 lb 6.4 oz)07/18/2021 8:32 AM YYWEammym039.1 cm (5' 5 )07/18/2021 8:32 AM ESTBody Mass Index25.03007/18/2021 8:32 AM EST Plan of Treatment Health MaintenanceDue DateLast DoneCommentsDepression Qronleknu78/25/2001Tobacco Mougazlnh37/25/2001Adult BMI Dkazhepvs35/25/2007DTaP,Tdap and Td Vaccines (1 - Tdap)2008Pap Smear2010COVID-19 Vaccine (3 - 2024- season) /, 01/06/2021Influenza Xqbpjty76/01/082334/01/2022, 03/02/2020, 02/23/2019, Additional history exists Medical Devices Not on file Insurance
[2025-04-29 11:08] LABS: Hematocrit 41.5 % (36.0-48.0); Hemoglobin 14.4 g/dL (12.0-16.0); Immature Granulocytes Abs Auto 0.01 10^3/uL (0.00-0.03); Immature Granulocytes Pct Auto 0.1 % (0.0-0.5); Lymphocytes Absolute Auto 2.4 10^3/uL (1.2-3.8); Mean Corpuscular HGB Conc 34.7 g/dL (29.9-35.2); Mean Corpuscular Hemoglobin 31.0 pg (26.7-34.0); Mean Corpuscular Volume 89.2 fL (81.0-99.0); Platelet Count 256 10^3/uL (150-450); Red Blood Count 4.65 10^6/uL (4.20-5.40); White Blood Count 6.9 10^3/uL (4.0-11.0)
--- OUTSIDE RECORDS SUMMARY | 2025-04-29 11:17 | XMS_ITS | CCD ---
Author Organization [facility] Care Team Providers Care Certified Caregiver Name Role Phone DR AROLDO HENDRIX Admitting Unavailable URMA, DR KENDRICK Attending Unavailable RUMA, DR KENDRICK Consulting Unavailable RUMA, DR KENDRICK Admitting Unavailable RUMA, DR KENDRICK Attending Unavailable RUMA, DR KENDRICK Consulting Unavailable SUHA Cleary Attending Provider SUHA Landa Attending Provider Annabella Landa APRN Attending Provider [phone] Irma Perez MD Primary Care Provider Annabella Landa APRN Attending Provider Irma Perez MD [facility] Care Provider Elenita Cleary APRN Attending Provider Kathryn Clearyanda Lamar Admitting Unavailable Madiha Elenita Lamar Attending Unavailable Annabella Landa Admitting Unavailable Annabella Landa Attending Unavailable Irma Perez Primary Care Unavailable Annabella Landa Admitting Unavailable Annabella Landa Attending Unavailable Madiha Elenita Lamar Attending Unavailable Madiha Elenita M Admitting Unavailable Irma Perez MD Primary Care Provider [phone] AROLDO HENDRIX Attending Unavailable AROLDO HENDRIX Attending Unavailable AROLDO HENDRIX Attending Unavailable AROLDO HENDRIX Attending Unavailable Ligia Case APRN Attending Provider Irma Perez MD Primary Care Provider Allergies Allergy ClassificationReported Allergen(s)Allergy TypeDate of OnsetReaction(s) Facility (1 source)PenicillinDrug Vbheqqz26-44-0802WnzcxmiacMer[facility] Rep[facility] (15 sources)nickel sulfateDrug Cnnxppa72-61-4169[facility] Work Phone: (15 sources)Penicillin GDrug Knzgomi42-25-0872[facility] (15 sources)PenicillinsDrug Zxwpqgeesii93-93-7811X[facility] Medications Current Medications MedicationDrug Class(es)DatesSig (Normalized)Sig [...] 315-5 MG-MCG tablet Calcium + D Activelevonorgestrel 0.358206 mg/hr intrauterine system (20 sources)Progestin, Progestin-containing Intrauterine DeviceStart: 11-18-2023 Levonorgestrel (Mirena) 21 mcg/24 hr (8 yrs) 52 mg intrauterine device Active INTRAUTERI November 12:00am Complies with drug therapyLevonorgestrel (Mirena, 52 MG,) 20 MCG/DAY intrauterine device as directed Intrauterine Active metroNIDAZOLE 500 mg oral tablet (7 sources)Nitroimidazole AntimicrobialStart: 10-01-2024 End: 11-91-4944xnqd 1 tablet by mouth in the morningmetroNIDAZOLE (Flagyl) 500 MG tablet Indications: Vaginal discharge Take 1 tablet (500 mg) by mouthin the morning and 1 tablet (500 mg) before bedtime. Do all this for 7 days. Do not drink alcohol while taking this medication. 14 tablet 10/01/2024 10/08/2024 ActiveStart: 09-07-2024 End: 76-20-9105hvpg 1 tablet by mouth in the morningmetroNIDAZOLE [...] oral tablet (8 sources)Azole AntifungalStart: 08-22-2024 End: 94-64-0390sycs 1 tablet by mouth once dailyFluconazole 150 mg tablet Discontinued 150 MG PO Daily 2 0 August 22, 2024 12:00am April 09, 2025 5:43pm May repeat dose in 3 days if symptoms persist.Start: 07-11-2024 End: 70-16-6645Lmgcldsbbsn 150 mg tablet Discontinued 150 MG PO Q3D 2 0 0 July 11, 2024 1:00am August 22, 2024 12:11pm may repeat x 1 in 3 days if needednitrofurantoin, macrocrystals 25 mg / nitrofurantoin, monohydrate 75 mg oral capsule (9 sources)Nitrofuran AntibacterialStart: 11-18-2023 End: 25-77-3086arle 1 capsule by mouth every twelve hours at mealtime Nitrofurantoin Monohyd/M-Cryst (Macrobid) 100 mg capsule Discontinued 100 MG PO Every 12 hours 14 70 November 18, 2023 12:00am December 28, 2023 2:02pm must administer with a meal/foodphenazopyridine hydrochloride 200 mg oral tablet (7 sources)Start: 12-28-2023 End: 77-66-9182zwuy 1 tablet by mouth three times daily as needed for pain Phenazopyridine (Pyridium) 200 mg tablet Discontinued 200 MG PO Three times daily as needed for pain 9 3 0 December 28, 2023 12:00am July 11, 2024 3:16pm sulfamethoxazole 800 mg / trimethoprim 160 mg oral tablet (7 sources)Dihydrofolate Reductase Inhibitor Antibacterial, Sulfonamide AntimicrobialStart: 12-28-2023 End: 41-01-0242ykrr 1 tablet by mouth every twelve hoursSulfamethoxazole- Trimethoprim 800-160 mg tablet Discontinued 1 TAB PO Every 12 hours 14 7 0 December 28, 2023 12:00am July 11, 2024 3:16pm Problems Active Problems Problem ClassificationProblemDateDocumented DateEpisodic/Chronic Administrative/social admission (2 sources)Patient encounter status; Translations: [Other specified counseling] 35-08-7143DgosjpwiDjxbhgyxahqwq and procreative management (3 sources)Sterilization requested; Translations: [Encounter for sterilization] 27-03-0453YiedailoSrqsewtfygmpt and screening for infectious disease (4 sources)Encounter for screening for human papillomavirus (HPV); Translations: [Encounter for screening for infections with a predominantly sexual mode of transmission]Onset: 836621-55-0061JqjbtpgvQwddbibpiudd diseases of female pelvic organs (2 sources)Bacterial vaginosis; Translations: [Acute vaginitis]09-07-2024 EpisodicMycoses (2 sources)Mycosis; Translations: [Candidiasis, unspecified]70-42-1374Rbqmynrb Other female genital disorders (10 sources)Other specified noninflammatory disorders of vagina; Translations: [Leukorrhea, not specified as infective]Onset: 25-04-1839MhdznfjiKycfa female genital disorders (6 sources)Vaginal discharge; Translations: [Other specified noninflammatory disorders of vagina]67-76-6401HudrczetXmgxh injuries and conditions due to external causes (2 sources)Puncture wound - injury; Translations: [Other injury of unspecified body region, initial encounter]55-13-0740JnwmmxjhGirxz screening for suspected conditions (not mental disorders or infectious disease) (4 sources)Encounter for screening for malignant neoplasm of cervix; Translations: [ENC SCREENING MALIG NEOPLASM CERV]Onset: 60-90-3302Mtqfaczi Urinary tract infections (14 sources)Urinary tract infectious disease; Translations: [Urinary tract infection, site not specified]Onset: 754220-03-3848Zqdclsfp Past or Other Problems Problem ClassificationProblemDateDocumented DateEpisodic/ChronicGenitourinary symptoms and ill-defined conditions (6 sources)Unspecified abnormal findings in urine; Translations: [Other nonspecific findings on examination ofurine]Onset: 138331-50-3067Jnppeweq Results Test NameValueInterpretationReference RangeFacilityUrinalysis macro (dipstick) panel (U)on 80-42-6420Ykobkontb, UAPositiveNegative - 4(70) +++ mg/dLNOMS HealthcareComment on [...] 12 mg/dLNOMS HealthcareNOMS Healthcare IGP,APTIMA HPV,AGE GDLNon 97-93-9229XHR GDLN ACOG TESTINGNote.[facility] Comment on above:TESTS RESULT FLAG UNITS REF RANGE LAB Clinician Provided Cytology Information Source.............Cervix;Endocervix No. of containers..01 ThinPrep Vial Age Algo ACOG Isabel... FLAG LEGEND: L-Low Normal,H-High Normal,LL-Alert Low,HH-Alert High <-Panic Low,>-Panic High,A-Abnormal,AA-Critical Abnormal Performed at: 01 =[address] [address] Mary Jacinto MD, HPV APTIMANegativeNegativeNOMS HealthcareComment on above:This nucleic acid amplification test detects fourteen high- risk HPV types (16,18,31,33,35,39,45,51,52,56,58,59,66,68) without differentiation. Performed at: =[address] [id number] Marketing Development Manager: Mary Jacinto MD, Phone: [phone] Performed at: [address] [id number] Marketing Development Manager: Mary Jacinto MD, Phone: [phone] IGP, APTIMA HPV, RFX 16/18,45Note.NOMS HealthcareComment on above:TESTS RESULT FLAG UNITS REF RANGE LAB DIAGNOSIS: 02 NEGATIVE FOR INTRAEPITHELIAL LESION OR MALIGNANCY. Specimen adequacy: 02 Satisfactory for evaluation. No endocervical component is identified. Performed by: 02 Coty Marte Digital Marketing Project Manager (ASCP) . 02 Note: Note 02 The [...] Low,>-Panic High,A-Abnormal,AA-Critical Abnormal Performed at: [address] [facility] [address] [address] Mary Jacinto MD, BRUSH-SPATULA CERVIX ENDOCERVIX CLINISYNCNOMS HealthcareRECURRENT VAGINITIS (HTRX)on 28-82-2721FGIZRQVHK VAGINAE 0NOMS HealthcareATOPOBIUM VAGINAENot detectedNOMS HealthcareBVAB 2,3 (BACTERIAL VAGINOSIS ASSOCIATED BACTERIA 2, 3); MOBILUNCUS [id number] HealthcareBVAB 2,3 (BACTERIAL VAGINOSIS ASSOCIATED BACTERIA 2, 3); MOBILUNCUS SPPNot detectedNOMS HealthcareCANDIDA ALBICANS, PARAPSILOSIS, DSVYEOSAMI3RFAM HealthcareCANDIDA ALBICANS, PARAPSILOSIS, TROPICALISNot detectedNOMS HealthcareCANDIDA GLABRATA0 NOMS HealthcareCANDIDA GLABRATANot detectedNOMS HealthcareCANDIDA SABQBS5NCHA HealthcareCANDIDA KRUSEINot detectedNOMS HealthcareCHLAMYDIA NIQGPOVYOYM1FKEF HealthcareCHLAMYDIA TRACHOMATISNot detectedNOMS HealthcareGARDNERELLA VAGINALIS0 NOMS HealthcareGARDNERELLA VAGINALISNot detectedNOMS HealthcareMEGASPHAERA (TYPES 1, 2)0NOMS HealthcareMEGASPHAERA (TYPES 1, 2)Not detectedNOMS Healthcare MYCOPLASMA FEHJUNVJXF9MVSN HealthcareMYCOPLASMA GENITALIUMNot detectedNOMS HealthcareNEISSERIA RUQUYWDOCOG8YBJA HealthcareNEISSERIA GONORRHOEAENot detected NOMS HealthcareTRICHOMONAS RIJVAMXTN1MQCJ HealthcareTRICHOMONAS VAGINALISNot detectedNOMS HealthcareNOMS HealthcareUrinalysis macro (dipstick) panel (U)on 01-15-1833Cwyxjutte, UANegativeNegative - 4(70) +++ mg/dLNOMS HealthcareBlood, UAPositiveNegative - 50 Hema/mcLNOMS HealthcareComment on above:traceClarity, UA ClearNOMS HealthcareColor, UAYellowNOMS HealthcareGlucose, UANegativeNegative - 2000(110) ++++ mg/dLNOMS HealthcareInterpretation and review of laboratory resultsNormalNOOK HealthcareKetones, UANegativeNegative - 160(16) ++++ mg/dLNOMS HealthcareLeukocytes, UANegativeNegative - 500+++ Francesca/mcLNOOK HealthcareNitrite, UANegativeNegative - PositiveNOMS HealthcarepH, UA5.55 - 9[facility] Protein, UANegativeNegative - 2000(20) ++++ mg/dLNOMS HealthcareSpec Grav, UA 1.021 - 1.03NOMS HealthcareUrobilinogen, UA0.20.2 - 12 mg/dLNOMS Glenbeigh HospitalNOOK HealthcareVaginitis Plus (VG+)on 96-53-0419Rdyusuqzm VaginaeLow - 0Normal.[facility] Physician GroupComment on above:Result Comment: This test was developed and its performance characteristics determined by [facility]. It has not been cleared or approved by the Food and Drug Administration.Performed By: #### VAGINITIS+ #### [facility] ,YNSU2Tnt - 0Normal.[facility] Physician GroupComment on above:Result Comment: This test was developed and its performance characteristics determined by [facility]. It has not been cleared or approved by the Food and Drug Administration.Performed By: #### VAGINITIS+ #### [facility] ,Kitty Albicans, NAANegativeNormalNegativeThe [facility] Physician GroupComment on above:Result Comment: This test was developed and its performance characteristics determined by [facility]. It has not been cleared or approved by the Food and Drug Administration.Performed By: #### VAGINITIS+ #### [facility] ,Kitty Glabrata, NAANegativeNormalNegativeThe [facility] Physician GroupComment on above:Result Comment: This test was developed and its performance characteristics determined by [facility]. It has not been cleared or approved by the Food and Drug Administration. PERFORMED BY: [facility] [address] [place] [address] PATHOLOGIST METAL FURNITURE ASSEMBLY SUPERVISOR BRYAN JONES M.D.Performed By: #### VAGINITIS+ #### [facility] ,Chlamydia Trachomotis, NAANegativeNormalNegativeThe [facility] Comment on above:Performed By: #### VAGINITIS+ #### [facility] ,MegasphaeraLow - 0Normal.[facility] Physician GroupComment on above:Result Comment: This test [...] #### VAGINITIS+ #### [facility] ,Neisseria Gonorrhoeae, NAANegativeNormalNegativeThe [facility] Comment on above:Result Comment: Performed at: =[facility] [id number] Marketing Development Manager: Mary Jacinto MD, Phone: [phone] By: #### VAGINITIS+ #### [facility] ,Tric Vag NAANegativeNormalNegativeThe [facility] Physician GroupComment on above:Performed By: #### VAGINITIS+ #### [facility] ,Laboratory - Microbiology and Antimicrobial susceptibilityOrdered By: Annabella Landa on 07-11-2024N. gonorrhoeae DNA ANDRADE+probe Ql (Unsp spec)NegativeNegative [facility] HospitalComment on above:Performed at: =[address] [id number] Director: Mary Jacinto MD, Phone: [phone] Panel InformationOrdered By: Annabella Landa on 07-11-2024 Kitty albicans (ANDRADE)NegativeNegativeMercy Health St. Anne HospitalComment on above:This test was developed and its performance characteristicsdetermined by [employer]. It has not been cleared orapproved by the Food and Drug Administration.Kitty glabrata (ANDRADE)NegativeNegativeMercy Health St. Anne HospitalComment on above:This test was developed and its performance characteristicsdetermined by [employer]. It has not been cleared orapproved by the Food and Drug Administration.Chlamydia trachomatis (ANDRADE) (LAB)NegativeNegative [facility] HospitalTrichomonas vaginalis (ANDRADE)NegativeNegative [facility] Anne HospitalVaginal fluid Atopobium vaginae DNA detection by probe and target amplification methoOrdered By: Annabella Landa on 07-11-2024. vaginae DNA ANDRADE+probe Ql (Vag fld)Vaginal fluid Atopobium vaginae DNA detection by probe and target amplification metho.[facility] Anne HospitalComment on above:This test was developed and its performance characteristicsdetermined by [employer]. It has not been cleared orapproved by the Food and Drug Administration.Vaginal fluid Megasphaera species type 1 DNA detection by probe and target amplificatOrdered By: Annabella Landa on 47-38-2697Nfglcagovdk sp type 1 DNA ANDRADE+probe Ql (Vag fld)Vaginal fluid Megasphaera species type 1 DNA detection by probe and target amplificat.[facility] Comment on above:This test was developed and its performance characteristicsdetermined by [employer]. It has not been cleared orapproved by [...] probe and tOrdered By: Annabella Landa on 96-33-4217Dwxxoodag vaginosis associated bacterium 2 DNA ANDRADE+probe Ql (Vag fld)Vaginal fluid bacterial vaginosis associated bacterium 2 DNA detection by probe and t.[facility] Anne HospitalComment on above: This test was developed and its performance characteristicsdetermined by [facility]. It has not been cleared orapproved by the Food and Drug Administration. Vaginitis Plus (VG+)on 99-71-0072Lokmjzugl VaginaeLow - 0Normal.[facility] Physician GroupComment on above:Result Comment: This test was developed and its performance characteristics determined by [facility]. It has not been cleared or approved by the Food and Drug Administration.Performed By: #### VAGINITIS+ #### [facility] ,RTPX7Hfe - 0Normal.[facility] Physician GroupComment on above:Result Comment: This test was developed and its performance characteristics determined by [facility]. It has not been cleared or approved by the Food and Drug Administration.Performed By: #### VAGINITIS+ #### [facility] ,Kitty Albicans, NAANegativeNormalNegativeThe [facility] Physician GroupComment on above:Result Comment: This test was developed and its performance characteristics determined by [facility]. It has not been cleared or approved by the Food and Drug Administration.Performed By: #### VAGINITIS+ #### [facility] ,Kitty Glabrata, NAANegativeNormalNegativeThe [facility] Physician GroupComment on above:Result Comment: This test was developed and its performance characteristics determined by [facility]. It has not been cleared or approved by the Food and Drug Administration. PERFORMED BY: [place] [address] [place] [address] PATHOLOGIST METAL FURNITURE ASSEMBLY SUPERVISOR BRYAN JONES M.D.Performed By: #### VAGINITIS+ #### [facility] ,Chlamydia Trachomotis, NAANegativeNormalNegativeThe [facility] Comment on above:Performed By: #### VAGINITIS+ #### [facility] ,MegasphaeraLow - 0Normal.[facility] Physician GroupComment on above:Result Comment: This test was developed and its performance characteristics determined by [employer]. It has not been cleared or approved [...] #### VAGINITIS+ #### [facility] ,Neisseria Gonorrhoeae, NAANegativeNormalNegativeThe [facility] Comment on above:Result Comment: Performed at: =[address] [id number] Marketing Development Manager: Mary Jacinto MD, Phone: [phone] By: #### VAGINITIS+ #### [facility] ,Tric Vag NAANegativeNormalNegativeThe [facility] Physician GroupComment on above:Performed By: #### VAGINITIS+ #### [facility] ,Urine Cultureon 83-07-7839Dbesnhsr identified Cx Nom (U)ORGANISM: Escherichia coli (O:ESCCOL) [place] Count >100,000 Aerobic APRIL Charge (NMIC56) SUSCEPTIBILITY [...] RESISTANT TO ALL B-LACTAM DRUGS. PERFORMED BY: [place] [address] PATHOLOGIST METAL FURNITURE ASSEMBLY SUPERVISOR JEANNETTE MARRERO M.D.[facility] Physician GroupComment on above:Performed By: #### CUU #### [place] [address] USABacteria Vaginosis, NAAon 13-45-0252Cplciqiwf VaginaeLow - 0Normal.[facility] Physician GroupComment on above:Result Comment: This test was developed and its performance characteristics determined by [facility]. It has not been cleared or approved by the Food and Drug Administration.Performed By: #### CUU #### [place] [address] [place] #### VAGINOSIS #### [facility] ,QCUD9Sua - 0Normal.[facility] Physician GroupComment on above:Result Comment: This test was developed and its performance characteristics determined by [facility]. It has not been cleared or approved by the Food and Drug Administration.Performed By: #### CUU #### [place] [address] [place] #### VAGINOSIS #### [facility] ,MegasphaeraLow - 0Normal.[facility] Physician GroupComment on above:Result Comment: This test [...] Indicates the presence of BV. Performed at: =[facility] [id number] Marketing Development Manager: Mary Jacinto MD, Phone: [phone] PERFORMED BY: [place] [address] PATHOLOGIST METAL FURNITURE ASSEMBLY SUPERVISOR JEANNETTE MARRERO M.D.Performed By: #### CUU #### [address] #### VAGINOSIS #### [facility] ,Laboratory - Chemistry and Chemistry - challengeon 65-22-4938Mrycvasdl Ql (U) NegativeMercy Health St. Anne HospitalGlucose (U) [Mass/Vol]NegativeMercy Health St. Anne HospitalKetones Ql (U)PositiveMercy Health St. Anne Hospital pH (U)6.0 [pH][facility]ja Medical Centerpecific gravity (U) [Rel density]1.010[facility] Anne HospitalUrobilinogen (U) [Mass/Vol]0.2 mg/dLMercy Health St. Anne HospitalLaboratory - Specimen informationon 60-62-7977Dzwhostqpm (U)cloudyMercy Health St. Anne HospitalColor (U)yellow [facility] HospitalLaboratory - Urinalysison 28-55-5974Beufmttgf esterase Test strip Ql (U)largeMercy Health St. Anne HospitalNitrite Ql (U) NegativeMercy Health St. Anne HospitalProtein Ql (U)NegativeMercy Health St. Anne HospitalNo Panel Informationon 26-21-7317Xzekn Occult Bloodtrace [facility] HospitalUrine Cultureon 20-26-6498Nxlyxxlh identified Cx Nom (U)ORGANISM: Escherichia coli (O:ESCCOL) [place] Count >100,000 Aerobic APRIL Charge (NMIC56) SUSCEPTIBILITY [...] EXTENDED SPECTRUM BETA-LACTAMASE TFG = THYMIDINE-DEPENDENT STRAIN VKNG = BETA-LACTAMASE POSITIVE IB = INDUCIBLE BETA-LACTAMASE. APPEARS IN PLACE OF 'S' WITH SPECIES KNOWN TO POSSESS INDUCIBLE BETA-LACTAMASES. POTENTIALLY THEY MAY BECOME RESISTANT TO ALL B-LACTAM DRUGS. PERFORMED BY: [place] [address] PATHOLOGIST METAL FURNITURE ASSEMBLY SUPERVISOR JEANNETTE MARRERO M.D.[facility] Physician GroupComment on above:Performed By: #### CUU #### [facility] [address] [place] [address] [place] #### VAGINOSIS #### [facility] ,Urine culture routineOrdered By: Elenita Cleary on 90-69-0446Hgaaivxv identified Cx Nom (U)Escherichia coliAbnormCleveland ClinicVaginal fluid Atopobium vaginae DNA detection by probe and target amplification methoOrdered By: Elenita Cleary on 11-18-2023. vaginae DNA ANDRADE+probe Ql (Vag fld)Low - [address] Anne HospitalComment on above:This test was developed and its performance characteristicsdetermined by [employer]. It has not been cleared orapproved by the Food and Drug Administration.Vaginal fluid Megasphaera species type 1 DNA detection by probe and target amplificatOrdered By: Elenita Cleary on 90-89-7887Anzrqjywobf sp type 1 DNA ANDRADE+probe Ql (Vag fld)Low - [address] Anne HospitalComment on above:This test was developed and its performance characteristicsdetermined by [facility]. It has not been cleared orapproved by the Food and Drug Administration.Calculate total score by adding the 3 individual bacterialvaginosis (BV) marker scores together. Total score isinterpreted as follows:Total score 0-1: Indicates the absence of BV.Total score 2: Indeterminate for BV. Additional clinical data should be evaluated to establish a diagnosis.Total score 3-6: Indicates the presence of BV.Performed at: =[address] [id number] Director: Mary Jacinto MD, Phone: [phone] fluid bacterial vaginosis associated bacterium 2 DNA detection by probe and tOrdered By: Elenita Cleary on 11-95-5024Umesyswnx vaginosis associated bacterium 2 DNA ANDRADE+probe Ql (Vag fld) Low - [address] Anne HospitalComment on above:This test was developed and its performance characteristicsdetermined by [facility]. It has not been cleared orapproved by the Food and Drug Administration.US PELVIS TRANSVAGINALon 22-39-3799[place], [place] [address] Ultrasound Report Signed Patient: RAJ WAITE MR#: [id number] : 1990 Acct:[id number] Age/Sex: 33 / F ADM Date: 08/20/23 Loc: [facility] Attending Dr: Aroldo Hendrix D.O. Ordering Physician: Aroldo Hendrix D.O. Date of Service: 08/20/23 Procedure(s): US pelvis transvaginal Accession Number(s): [id number] cc: Aroldo Hendrix D.O.; Physician,Non-Staff M.D. [facility] [place] [id number] Patient Name: RAJ WAITE MRN: [id number] date: 1990 Sex: F Assigned Patient Location: [facility] Current Patient Location: [facility] Accession/Order Number: [id number] Exam Date: 08/20/2023 15:08 Report Date: 08/20/2023 15:39 At the request of: AROLDO HENDRXI Procedure: US pelvis transvaginal EXAMINATION: US pelvis [...] Signed By: 08/20/23 1542 DD/ 1539 TD/TT: Marine Plumber:TBHRadiology, Radiologist, MD - 08/20/2023 [place] [address] Ultrasound Report Signed Patient: RAJ WAITE MR#: [id number] : 1990 Acct:[id number] Age/Sex: 33 / F ADM Date: 08/20/23 Loc: [facility] Attending Dr: Aroldo Hendrix D.O. Ordering Physician: Aroldo Hendrix D.O. Date of Service: 08/20/23 Procedure(s): US pelvis transvaginal Accession Number(s): [id number] cc: Ruma,Aroldo D.O.; Physician,Non-Staff [place] [facility] [place] [address] Patient Name: RAJ WAITE MRN: [facility]:[id number] date: 1990 Sex: F Assigned Patient Location: [facility] Current Patient Location: [facility] Accession/Order Number: [id number] Exam Date: 08/20/2023 15:08 Report Date: 08/20/2023 [...] Signed By: 08/20/23 1542 DD/ 1539 TD/TT: Marine Plumber: [facility]ITALCrista HealthcareRadiology Study observation (narrative)[facility] HealthcareUS PELVIS TRANSVAGINALOrdered By: Radiologist Radiology on 67-09-5312[employer] Work Phone: pap ACOG PANEL 2: 30 to 65on 07-23-2022..NormalThe [facility] Health CenterComment on above:Result Comment: Performed at: WBPerformed By: #### [id number] #### [facility] [address] [place] [address] Dr. Zheng Pompa Gdln ACOG [address] Pope StreetComment on above:Performed By: #### [id number] #### [facility] [address] [place] [address] Dr. Zheng KnowlesDIAGNOSIS:CommentRegional Medical Center on above: Result Comment: NEGATIVE FOR INTRAEPITHELIAL LESION OR MALIGNANCY. Performed at: WBPerformed By: #### [id number] #### [facility] [address] [place] [address] Dr. Zheng Gonsales AptimaNegativeNormalNegativeThe [facility] on above:Result Comment: This nucleic acid amplification test detects fourteen high-risk HPV types (16,18,31,33,35,39,45,51,52,56,58,59,66,68) without differentiation. Performed at: =GPerformed By: #### [id number] #### [facility] [address] [place] [address] Dr. Zheng Gonsales Genotype ReflexCommentNoBlanchard Valley Health System [facility] on above:Result Comment: Criteria not met, HPV Genotype not performed. Performed at: WBPerformed By: #### [id number] #### [facility] [address] [place] [address] Dr. Zheng KnowlesMethodology:CommentRegional Medical Center on above: Result Comment: This liquid based ThinPrep(R) pap test was screened with the use of an image guided system. Performed at: WBPerformed By: #### [id number] #### [facility] [address] [place] [address] Dr. Zheng KnowlesNote:CommentNoBlanchard Valley Health System [facility] on above:Result Comment: The Pap smear is a screening test designed to aid in the detection of premalignant and malignant conditions of the uterine cervix. It is not a diagnostic procedure and should not be used as the sole means of detecting cervical cancer. Both false-positive and false-negative reports do occur. . Performed at: WBPerformed By: #### [id number] #### [facility] [address] [place] [address] Dr. Zheng KnowlesPerformed by:CommentNoBlanchard Valley Health System [facility] on above: Result Comment: Marni Zavala, Digital Marketing Project Manager (ASCP) Performed at: WBPerformed By: #### [id number] #### [facility] [address] [place] [address] Dr. Zheng KnowlesSpecimechano adequacy:CommentDetwiler Memorial HospitalComment on above:Result Comment: Satisfactory for evaluation. Endocervical and/or squamous metaplastic cells (endocervical component) are present. Performed at: WBPerformed By: #### [id number] #### [facility] [address] [place] [address] Dr. Zheng KnowlesCHLAMYDIA/GONOCOCCUS ANDRADE (SWAB/URINE/PAPon 27-77-7709Rxqsxjxdd trachomatis, NAANegativeNormalNegativeMercy Health St. Anne HospitalComment on above: Performed By: #### CT/NGNA #### [facility] [address] [place] [address] Dr. Zheng KnowlesNeisseria gonorrhoeae, NAANegativeNormalNegativeMercy Health St. Anne HospitalComment on above:Performed By: #### CT/NGNA #### [facility] [address] [place] [address] Dr. Zheng KnowlesVAGINITIS/VAGINOSIS DNA PROBEon 18-10-5430Blicvfh speciesPositive AbnormalNegativeMercy Health St. Anne HospitalComment on above:Performed By: #### VAGINT #### [facility] [address] [place] [address] Dr. Zheng Francisdnerella vaginalisNegativeNormalNegativeMercy Health St. [facility] Hospital Comment on above:Performed By: #### VAGINT #### [facility] [address] [place] [address] Dr. Zheng KnowlesTrichomonas vaginalisNegativermalNegativeMercy Health St. Anne Hospital Comment on above:Performed By: #### VAGINT #### [facility] [address] [place] [address] Dr. Zheng Knowles Vital Signs Date TimeVital SignValuePerforming NtgddpeavMaajimil87-91-6159 17:40-0400Body .1 cmMuhamid Chris FLORES Work Phone: 1(419)[address] [place], [place] 9024710-31-2025 17:40-0400 Body mass index (BMI) [Ratio]27.9 kg/k1NlndhmdIrma Perez MD Work Phone: 1(419)[address] [place], [place] 9024710-31-2025 17:40-0400 Body timfwjmcobr67.3 [degF]Irma Perez MD Work Phone: 1(419)[address] [place], [place] 9024710-31-2025 17:40-0400 Body .2 kgIrma Perez MD Work Phone: 1(419)[address] [place], [place] 9024710-31-2025 17:40-0400 Diastolic blood exsfyvuf89 mm[Hg]Irma Perez MD Work Phone: 1(419)[address] [place], [place] 9024710-31-2025 17:40-0400 Heart rate69 /minIrma Perez MD Work Phone: 1(419)[address] [place], [place] 9024710-31-2025 17:40-0400 Respiratory rate16 /minIrma Perez MD Work Phone: 1(419)[address] [place], [place] 9024710-31-2025 17:40-0400 SaO2% (BldA) [Mass fraction]98 %Irma Perez MD Work Phone: 1(419)[address] [place], [place] 9024710-31-2025 17:40-0400 Systolic blood mm[Hg]Irma Perez MD Work Phone: 1(154)[address] [place], [place] 9024710-22-2025 13:43-0400 Body jsoxri185.1 cmCorey Ruma DO Work Phone: [facility] CenterBfwrcqapzb14-64-0249 13:43-0400Body mass index (BMI) [Ratio]28.26 kg/h3Uafvp Ruma DO Work Phone: [facility] CenterFlzbzfguou22-90-5907 13:43-0400Body .02 kgCorey Ruma DO Work Phone: [facility] CenterDbqvorbith91-69-2719 13:43-0400Diastolic blood mm[Hg]Aroldo Ruma DO Work Phone: 1(783)428-[facility] Health CenterTabtuhsiwo24-93-2363 13:43-0400Systolic blood apgjpbmv989 mm[Hg]Aroldo Ruma DO Work Phone: 1(696)[facility] [place], [place] [address]Mmxwqmizvy61-40-1245 10:29-0400Body mass index (BMI) [Ratio]28.81 kg/s2Fjsdj Ruma DO Work Phone: 1(648)[facility] [place], [place] [address]Tcrfhbhwov89-41-3798 10:29-0400Body malylb46.53 kgCorey Ruma DO Work Phone: 1(528)[facility] [place] [address]-16-2025 10:29-0400Diastolic blood qjkzvxii83 mm[Hg]Aroldo Ruma DO Work Phone: 1(670)[facility] [place] [address]-16-2025 10:29-0400Systolic blood hvqgcwxe253 mm[Hg]Aroldo Ruma DO Work Phone: 1(233)[facility] [place], [place] [address]Ncorwqthym24-77-8007 11:37-0400Body mass index (BMI) [Ratio]26.79 kg/k7Tureu Ruma DO Work Phone: 1(993)[facility] [place], [place] [address]Vcwxxwdnhc87-61-0313 11:37-0400Body mqousb00.03 kgCorey Ruma DO Work Phone: 1(489)[facility] [place], [place] [address]Joxlkyrfyq93-01-3174 11:37-0400Diastolic blood nusvxejm96 mm[Hg]Aroldo Ruma DO Work Phone: 1(469)[facility] [place], [place] [address]Waputbolzl73-79-6176 11:37-0400Systolic blood sorazlkb828 mm[Hg]Aroldo Ruma DO Work Phone: 1(302)[address] [place], [place] 0494203-31-2025 16:06-0400Body mass index (BMI) [Ratio]27.12 kg/o9Rqsyd Ruma DO Work Phone: 1(368)[facility] [place], [place] [address]Rpzyblecdy59-66-5883 16:06-0400Body cdkmoa30.94 kgCorey Ruma DO Work Phone: 1(070)[facility] [place], [place] [address]Gcacekuzgp96-69-0463 16:06-0400Diastolic blood mfunjtpl84 mm[Hg]Aroldo Ruma DO Work Phone: [facility] CenterGswmfjqmqs48-75-3967 16:06-0400Systolic blood mm[Hg]Aroldo Ruma DO Work Phone: [facility] CenterMnmdyzqqpd03-32-8794 12:16-0400Body gliewm966.1 cmIrma Perez MD Work Phone: 1(419)[address] [place], [place] 9024703-15-2025 12:16-0400 Body mass index (BMI) [Ratio]0.8 kg/h6ZgmdyjkIrma Perez MD Work Phone: 1(419)[address] [place], [place] 9024703-15-2025 12:16-0400 Body ladpazorkng40.7 [degF]Irma Perez MD Work Phone: 1(419)[address] [place], [place] 9024703-15-2025 12:16-0400 Body weight2.4 kgIrma Perez MD Work Phone: 1(419)[address] [place], [place] 9024703-15-2025 12:16-0400 Diastolic blood emenkmcd15 mm[Hg]Irma Perez MD Work Phone: 1(419)[address] [place], [place] 9024703-15-2025 12:16-0400 Heart rate63 /minIrma Perez MD Work Phone: 1(419)[address] [place], [place] 9024703-15-2025 12:16-0400 Respiratory rate18 /minIrma Perez MD Work Phone: 1(419)[address] [place], [place] 9024703-15-2025 12:16-0400 SaO2% (BldA) [Mass fraction]99 %Irma Perez MD Work Phone: 1(419)[address] [place], [place] 9024703-15-2025 12:16-0400 Systolic blood skexhmrp347 mm[Hg]Irma Perez MD Work Phone: 1(419)[address] [place], [place] 9024702-01-2025 14:16-0500 Body mjtilh817.[address] [facility]02-01-2025 14:16-0500Body mass index (BMI) [Ratio]25.9 kg/q4LkkcngiswMercy Health St. Anne Hospital02-01-2025 14:16-0500Body kfwdduvcqpm96.9 [degF][facility]02-01-2025 14:16-0500Body .[address] [facility]02-01-2025 14:16-0500Diastolic blood oztkkjgh17 mm[Hg][facility] 07-11-2024 14:16-0500Heart rate75 /[facility] 07-11-2024 14:16-0500Respiratory rate19 /[facility] 07-11-2024 14:16-7412AiP4% (BldA) [Mass fraction]97 %[facility]02-01-2025 14:16-0500Systolic blood eljedsdo955 mm[Hg][facility]07-20-2024 14:13-0400Body tmmocp791.1 cmAPRN Elenita Madiha Work Phone: [facility]07-20-2024 14:13-0400 Body mass index (BMI) [Ratio]25.7 kg/m2APRN Elenita Madiha Work Phone: [facility]07-20-2024 14:13-0400 Body qecmqzmpbqv51.6 [degF]FOREPART LASTER Elenita Madiha Work Phone: [facility]07-20-2024 14:13-0400 Body rruonv45.3 kgAPRN Elenita Madiha Work Phone: [facility]07-20-2024 14:13-0400 Heart rate60 /minAPRN Elenita Madiha Work Phone: [facility]07-20-2024 14:13-0400 Respiratory rate18 /minAPRN Elenita Madiha Work Phone: [facility]07-20-2024 14:13-0400 SaO2% (BldA) [Mass fraction]99 %FOREP[employer] LASTER Elenita Madiha Work Phone: [facility]06-10-2024 16:34-0400 Body .[address] [facility]06-10-2024 16:34-0400Body mass index (BMI) [Ratio]25 kg/s5YbvrswxtsMercy Health St. Anne Hospital06-10-2024 16:34-0400Body .2 [degF][facility]06-10-2024 16:34-0400Body ffiudj22.[address] [facility] Hospital06-10-2024 16:34-0400Heart rate86 /[facility]06-10-2024 16:34-0400Respiratory rate18 /[facility]06-10-2024 16:34-3495YzO9% (BldA) [Mass fraction]99 %[facility] Encounters Encounter DateEncounter TypeCare ProviderFacilityStart: 04-09-2025 End: 33-16-8274kwppfplpcsSogsqpx Chris FLORES Work Phone: -[facility]deStart: 04-09-2025 End: 14-98-1491Bkhltdt encounter procedurePatricfrank Case FOREPART LASTER-[facility] Work Phone: Start: 03-31-2025 End: 40-97-2586Cydxrf flowsheetCorey Ruma DO Work Phone: noMS [facility] OBGYNStart: 03-31-2025 End: 76-53-4117Zasfqs flowsheetCorey Ruma DO Work Phone: noMS [place] [facility]BGYNStart: 03-31-2025 End: 69-22-1358Blzqbd outpatient visit 15 minutesCorey Ruma DO Work Phone: noMS [place] OBGYNComment on above:Pre-op examination; Request for sterilizationStart: 03-31-2025 End: 45-19-9312Coadsarkijgzq examination doneCorey Ruma DO Work Phone: [facility] HealthcareStart: 03-31-2025 End: 21-04-9116smpwhxrqfdFGOCI FAZIONot AvailableStart: 02-23-2025 End: 59-03-0737Xradle flowsheetCorey Ruma DO Work Phone: [facility] [place] [facility]BGYNStart: 02-23-2025 End: 22-99-7249Ygudks flowsheetCorey Ruma DO Work Phone: [facility] [place] [facility]BGYNStart: 02-23-2025 End: 82-76-1725Miyzky outpatient visit 15 minutesCorey Ruma DO Work Phone: [facility] OBGYNComment on above:Encounter to discuss procedure; Request for sterilizationStart: 02-23-2025 End: 44-17-7125iscysssdhfLXKRF FAZIONot AvailableStart: 10-01-2024 End: 39-07-7708Ommybu flowsheetCorey Ruma DO Work Phone: [facility] OBStart: 10-01-2024 End: 81-44-2701Pjzriz flowsheetCorey Ruma DO Work Phone: [facility] OBStart: 10-01-2024 End: 21-43-5909Fgpsmp outpatient visit 15 minutesCorey Ruma DO Work Phone: [facility] BCP OBComment on above:Vaginal dischargeStart: 10-01-2024 End: 03-88-4169dpbaqwidaaXZIMR FAZIONot AvailableStart: 09-10-2024 End: 86-75-4025Lagfizhbl encounterEricka Dendinger SENIOR PROGRAMMER Work Phone: [facility] BCP OBStart: 09-07-2024 End: 17-75-7297Qdpntla encounter procedureCorey Ruma DO Work Phone: [facility] HealthcareStart: 09-07-2024 End: 44-93-0344Wwkamlui preventive med est patient 18-39 yrsCorey Ruam DO Work Phone: [facility] BCP OBComment on above:Bacterial vaginosis (Primary Dx); Well woman exam with routine gynecological exam; Possible exposure to STI; Yeast infectionStart: 09-07-2024 End: 12-74-4766nkdlnfzdjnXIKXX FAZIONot AvailableStart: 09-07-2024 End: 26-02-4468Pokcmc flowsheetCorey Ruma DO Work Phone: n[facility] BCP OBStart: 09-07-2024 End: 12-58-0310Cgpktv flowsheetCorey Ruma DO Work Phone: NOWH BCP OBStart: 09-07-2024 End: 79-29-8742Nuriwpxox Result EncounterCorey Ruma DO Work Phone: noms External Department UnsolicitedStart: 09-07-2024 End: 79-49-1779Mfrdguep Result EncounterCorey Ruma DO Work Phone: noms External Department UnsolicitedStart: 08-22-2024 End: 65-93-9548Vshrrooc Nico Perez MD Work Phone: [facility] [place] Work Phone: Start: 08-22-2024 End: 27-02-1121owplbukeeeXpqvony Asif MD Work Phone: [facility] Work Phone: Start: 08-22-2024 End: 81-57-6350Pmkiurc encounter procedureIrma Perez MD Work Phone: [facility] [place] Work Phone: Start: 07-11-2024 End: 15-94-5366Mhsjryxo Nico Perez MD Work Phone: [facility] [place] Work Phone: Start: 07-11-2024 End: 99-03-1456sryztikwjxJklcbhx Asif MD Work Phone: [facility] Work Phone: start: 07-11-2024 End: 93-01-7301Lscbvuq [facility] Work Phone: Start: 12-28-2023 End: 70-63-3298Zkmmrrab ReferredAPRChano Cleary Work Phone: [facility] [place] Work Phone: Start: 12-28-2023 End: 98-71-6651lbwhhhoiokSqrffg [facility] Work Phone: Start: 12-28-2023 End: 98-79-6464Ktmyqzp encounter procedureAPRN Elenita Ramosb Work Phone: [facility] [place] Work Phone: Start: 11-18-2023 End: 85-72-2770Vtsiixrd ReferredAPRN Elenita Cleary Work Phone: [facility] [place] Work Phone: Start: 11-18-2023 End: 25-35-7673nsarthtwgiYzcmah [facility] Work Phone: Start: 11-18-2023 End: 72-60-7482Ubhfirv encounter procedureCarolinas [facility] [place] Work Phone: Start: 08-20-2023 End: 10-51-3656Sijiuugfk Result EncounterCorey Ruma DO Work Phone: n[facility] External Department UnsolicitedStart: 08-20-2023 End: 99-76-1297Gasdxragx Result EncounterCorey Ruma DO Work Phone: n[facility] External Department UnsolicitedStart: 07-16-2022 End: 00-26-4945elautdluycDG AROLDO FAZIOFacility:D0Eeugk: 08-29-2021 End: 92-60-1982fvbxucwhilRW AROLDO FAZIOFacility:H1 Procedures DateProcedureProcedure DetailPerforming ClinicianStart: 24-52-1768Apaum dip stick/tablet rgnt non-auto w/o micrscpCorey Ruma DO Work Phone: Start: 11-60-4550Psptn dip stick/tablet rgnt non-auto w/o micrscpCorey Ruma DO Work Phone: Start: 73-06-4209RVH,APTIMA HPV,AGE GDLNCorey Ruma DO Work Phone: Start: 81-17-4790RQCBILGZW VAGINITIS (HTRX)Aroldo Ruma DO Work Phone: Start: 22-75-9343Btlamjysjwm observation [Identifier] in Cervix by Cyto stainCorey Ruma DO Work Phone: Start: 84-37-1670Agbqg cultureAPRN Elenita Madiha Work Phone: Start: 07-23-1051HJ PELVIS TRANSVAGINALCorey Ruma DO Work Phone: History of tonsillectomyHistory of tonsillectomy Plan of Treatment DateCare ActivityDetailAuthorStart: 79-19-0319Nacaixrxz for malignant neoplasm of cervixNOMS HealthcareStart: 09-14-2025 End: 63-45-9037Sicyvyq encounter procedureNOMS BCP OBStart: 03-31-2025 End: 71-74-4584Hqzuigq encounter procedureNOMS Afia OBGYNComment on above: ArrivedStart: 02-23-2025 End: 68-12-1351Tehrqky encounter anqahsjjq79/16/2025 10:10 AM EDT Office Visit [facility] [address] [place] [address] Aroldo Hendrix, DO [address] [place] [address] ArrivedNOMS [place] OBGYNComment on above:ArrivedStart: 38-15-7625Zsmccvtnh vaccinationInfluenza Vaccine (#1)[facility] HealthcareStart: 10-15-2024 End: 85-20-7138Nkamfxp encounter mhhjvoyyv67/08/2025 8:10 AM EDT Office Visit [facility] [address] [place] [address] Aroldo Hendrix, DO [address] [place] [address] N[facility] BCP OBStart: 10-01-2024 End: 58-22-8985Ffhcdca encounter yoygmhhdy65/24/2025 11:30 AM EDT Office Visit [facility] [address] [place] [phone] Aroldo Hendrix, DO [address] [place] [address] ArrivedNOMS BCP OBComment on above:ArrivedStart: 09-07-2024 End: 47-58-8643Xrjdioo encounter gtfocypgo13/31/2025 3:40 PM EDT Office Visit [facility] [address] [place] [address] Aroldo Hendrix, DO [address] [place] [address] ArrivedNOMS BCP OBComment on above:ArrivedStart: 59-82-7486ZsjpmajvjUniversity Hospitals Ahuja Medical Centertart: 80-52-1194PiclivjbyUniversity Hospitals Ahuja Medical Centertart: 37-54-9754Njndhkoud vaccinationInfluenza Vaccine (#1)[facility] HealthcareStart: 19-44-5362Egkujypf identified in Urine by CultureUniversity Hospitals Ahuja Medical Centertart: 79-69-0773Ztqitmxa identified in Urine by Culture [facility] Centertart: 87-83-0126ChqaaenixUniversity Hospitals Ahuja Medical Centertart: 16-86-1486Rrrutmkv identified in Urine by CultureUniversity Hospitals Ahuja Medical Centertart: 17-32-4530Wpeecpvgo for malignant neoplasm of cervixNOOK HealthcareStart: 94-36-1942Tjmouhuaz for malignant neoplasm of cervixPap Smear NOMS HealthcareAtopobium vaginae DNA [Presence] in Vaginal fluid by ANDRADE with probe detectionMercy Health St. Anne HospitalAtopobium vaginae DNA [Presence] in Vaginal fluid by ANDRADE with probe detectionMercy Health St. [facility] Hospital Atopobium vaginae DNA [Presence] in Vaginal fluid by ANDRADE with probe detection [facility] HospitalBacteria identified in Urine by Culture [facility] HospitalBacterial vaginosis associated bacterium 2 DNA [Presence] in Vaginal fluid by ANDRADE with probe detectionMercy Health St. Anne HospitalBacterial vaginosis associated bacterium 2 DNA [Presence] in Vaginal fluid by ANDRADE with probe detectionMercy Health St. [facility] Hospital Bacterial vaginosis associated bacterium 2 DNA [Presence] in Vaginal fluid by ANDRADE with probe detectionMercy Health St. Anne HospitalCytology Cervical or vaginal smear or scraping studyPap Smear Pathology and Cytology Routine Well woman exam with routine gynecological exam Ordered: 09/07/2024[facility] Work Phone: comment on above:Ordered: 09/07/2024Human papilloma virus DNA [Presence] in Unspecified specimen by Probe with amplificationHPV DNA probe, amplified Microbiology Routine Well woman exam with routine gynecological exam Ordered: 09/07/2024[facility] CenterComment on above:Ordered: 09/07/2024 Megasphaera sp type 1 DNA [Presence] in Vaginal fluid by ANDRADE with probe detectionMercy Health St. Anne HospitalMegasphaera sp type 1 DNA [Presence] in Vaginal fluid by ANDRADE with probe detectionMercy Health St. Anne Hospital Megasphaera sp type 1 DNA [Presence] in Vaginal fluid by ANDRADE with probe detectionKaiser Foundation Hospital Immunizations Immunization DateImmunizationNotesCare HuarpitzLegoeabe31-96-8056picdaeuxi virus vaccine, unspecified formulationCorey Ruma DO Work Phone: [facility] Healthcare Payers DatePayer CategoryPayerPolicy [id number] [id number] [place] [id number] [id number] 2..1.451208.3.57[id number] 2..1.662771.3.57[id number] 2..1.094924.3.57[id number] 2..1.671454.3.57[id number] 2..1.270648.3.579.2.062667-24-5001Sgbqxua3248834 2..1.290379.3.579.2.351003-30-0716Ioeqjbn6899176336-17-8960Kvpxvyd [id number] 2.0.1.8155[id number] 2.0.1.224[id number] 2.0.1.458137.3.579.2.531 [id number] 2.0.1.495266.3.579.2.531Worker's [id number]-557x-0xv7-3513-83u9vr6w96eb Social History DateTypeDetailFacilityStart: 06-27-2023 End: 60-24-4142Avfkaup smoking status NHISNever smoked tobacco (finding) [facility] Centertart: 80-74-3881Ola Assigned At BirthFeMercy Healthtart: 07-11-2024 End: 65-53-9914WzzRsmrni (finding)[facility] Medical Centertart: 16-88-3774Nlugnmy use and exposureSmokeless tobacco non-userNOMS Healthcare Start: 06-27-2023 End: 01-22-7173Cbndhmews beverage intakeCurrent drinker of alcohol (finding)[facility] HealthcareStart: 06-27-2023 End: 74-99-5463Irostfj of Social functionNOMS HealthcareStart: 06-27-2023 End: 01-47-4592Zqjlehb use panelNOOK HealthcareStart: 39-75-9246Tzadeww Comment occasionalNOMS HealthcareStart: 20-17-5033Nxy assigned at birthNot on fileSANPETE VALLEY HOSPITAL HealthcareStart: 04-16-4508AtnNzgdfdRMWY Healthcare Clinical Notes 07-11-2024 to 03-31-2025 Note Date & CtcvDycxQytyfgrj31-35-4024 History of Present illness Narrative* Stefania Donaldson - 03/31/2025 1:40 PM EDT Reason for Appointment: Patient ID: Raj Waite is a 35 y.o. female who presents for Pre-op Visit Patient presents today for Pre Op appointment. Patient is scheduled to undergo Da Delmi assisted Bilateral Laparoscopic Salpingectomy on 04/30/[address] Hendrix at [facility]. MEDICATIONS Current Outpatient Medications Medication Instructions ascorbic [...] nursing note reviewed. Exam conducted with a commissioned security officer present. Vitals: Estimated body mass index is [...] reviewed, and patient is to proceed to [facility] OR. Follow Up: Patient is to follow up between 1-2 weeks post op to assess proper healing and recovery from procedure. Documented by Di Palmer LPN on behalf of: Aroldo Hendrix DO documented in this encounterBothwell Regional Health CenterFykdqwbsdd38-83-5052 History of Present illness Narrative* Di Palmer [...] nursing note reviewed. Exam conducted with a commissioned security officer present. Vitals: Estimated body mass index is [...] Salpingectomy. Patient will set up surgery with rn neurosurgical and return to our office for a pre op appointment. Documented by Di Palmer LPN on behalf of: Aroldo Hendrix DO documented in this encounterBothwell Regional Health CenterAofmsfijqt09-89-8829 History of Present illness Narrative* Chely Lopez [...] nursing note reviewed. Exam conducted with a commissioned security officer present. Vitals: Estimated body mass index is [...] of: Aroldo Hendrix DO documented in this encounterBothwell Regional Health CenterUgaexxxqld06-69-2674 Telephone encounter Note* Telephone Encounter - Rosa [...] give me a call back, please.It is [phone]. With what would like to do with my situation. Thank you, cornel. Pt's culture came back completely negative. What would you like me to do? [facility] Olazvhlgbx16-89-6618 Miscellaneous Notes* Telephone Encounter - Rosa Zaman [...] give me a call back, please.It is [phone]. With what would like to do with my situation. Thank you, bye. Pt's culture came back completely negative. What would you like me to do? documented in this encounterBothwell Regional Health CenterDnzoobupou80-43-1712 History of Present illness Narrative* Marissa Villavicencio, [...] nursing note reviewed. Exam conducted with a commissioned security officer present. Vitals: Estimated body mass index is [...] of recurrent yeast. Plan is to trial Pocket Creaser azole or Diflucan 100 mg daily for 14 days will wait for culturesprior to treatment. Given findings on exam with vaginal discharge consistent with BV treatment for Flagyl is sent to pharmacy. Documented by Marissa Villavicencio NP on behalf of: Aroldo Hendrix DO documented in this encounterBothwell Regional Health [id number] Evaluation note* Diagnosis Onset Date Resolution Status Admit Date Vaginal discharge acuteFebruary 2024 1:55pm [facility] Work Phone: 1(567) 318-317402-01-2025 Evaluation note* Diagnosis Onset Date Resolution Status Admit Date Vaginal discharge acuteFebruary 2024 1:55pmVaginal dischargeacuteMarch 2024 11:58am [facility] Work Phone: Evaluation note* Diagnosis Onset Date Resolution Status UTI (urinary tract infection) acuteMalodorous urinenoneactive [facility] Work Phone: evaluation note* Diagnosis Onset Date Resolution Status Malodorous urine noneactive [facility] Work Phone: Evaluation note* Diagnosis Onset Date Resolution Status UTI (urinary tract infection) acuteMalodorous urinenoneactiveUTI (urinary tract infection)acute [facility] Work Phone: evaluation noteNo assessment information available [facility] Work Phone: evaluation note* Diagnosis Bacterial vaginosis- Primary Unspecified vaginitis and vulvovaginitis Well woman exam with routine gynecological exam Routine gynecological examination Possible exposure to STI Yeast infection documented in this encounter [facility] HealthcareEvaluation [facility]* Diagnosis Vaginal discharge Leukorrhea, not specified as infective documented in this encounter [facility] HealthcareEvaluation note* Diagnosis Encounter to discuss procedure Request for sterilization documented in this encounter [facility] HealthcareEvaluation note* Diagnosis Pre-op examination Request for sterilization documented in this encounter [facility] HealthcareEvaluation note* Diagnosis Onset Date Resolution Status Admit Date Puncture wound acuteOctober 2024 5:38pm [facility] Work Phone: Reason for referral (narrative)No reason for referral information availableUniversity [facility] Work Phone: Summary Purpose Family History Relationship [...] and content) DATE CREATED AUTHOR 07/24/2022 [facility] DATE CREATED AUTHOR AUTHOR'S ORGANIZ ATION 08/28/2024 [facility] DATE CREATED AUTHOR AUTHOR'S ORGANIZ ATION 04/02/2025 [facility] EPIC Care Teams (unrecognized [...] DateEnd Date Irma Perez MD [facility] - [facility]23Team MemberRelationshipSpecialtyStart DateEnd Date Irma Perez MD [facility] - [facility]/23Team MemberRelationshipSpecialtyStart DateEnd Date Irma Perez MD [facility]/23Team MemberRelationshipSpecialtyStart DateEnd Date Irma Perez MD PCP - [facility]08/12/23Team MemberRelationshipSpecialtyStart DateEnd Date Irma Perez MD PCP - [facility]08/12/23Team MemberRelationshipSpecialtyStart DateEnd Date Irma Perez MD PCP - [facility]08/12/23Team MemberRelationshipSpecialtyStart DateEnd Date Irma Perez MD PCP - [facility]08/12/23Team MemberRelationshipSpecialtyStart DateEnd Date Irma Perez MD PCP - [facility]08/12/23 Team Status: Active Member Role/Relationship Status Dates Irma Perez MD Primary Care Provider Active Team Status: Inactive Member Role/Relationship Status Dates AJIT Nava RN SPORTS PHYSIOLOGIST-C Attending Provider Active Start: April 09, 2025 [...] BE BASED ON THE PRIMARY CLINICAL RECORDS. [employer] provides no warranty or guarantee of the accuracy or completeness of information in this document.
--- NOTE | 2025-04-29 13:09 | P.ON_ITS ---
Brief Operative Note Date of procedure: 04/29/25 Pre-op diagnosis general: desires permanent sterilization Post-op diagnosis: same as pre-op Procedure: NAME OF PROCEDURE: robotic assisted bilateral laparoscopic salpingectomy PROCEDURE: The patient was taken back to the Operating Room where she was given general anesthesia without difficulty. She was then prepped and draped in the normal sterile fashion after being placed in a dorsal lithotomy position. A wet sponge stick was placed into the patient's vagina. Attention was then turned to the patient's abdomen, where a scalpel was used to make a small infraumbilical incision. The S retractors were then used to dissect the underlying layers until the fascia could be seen. The fascia was then grasped with You clamps and tented up. A knife was then used to make a small incision to the fascia. The muscle was identified, at that time two sutures of #0 Vicryl on a GI needle was then used and placed through the fascia. the peritoneum was then identified and entered bluntly. The 10-4 Terrance was then placed into the patient's abdomen. This was confirmed with direct visualization of the bowel, using the laparoscope. The patient's abdomen was then insufflated using approximately 4 liters of CO2 gas. Survey of the patient's abdomen demonstrated ovaries were normal in appearance as well as both tubes and uterus. A second and third rt and lt lateral robotic ports which were 8 mm in size, was then placed after the skin incision was made under direct visualization . the robotic arms were engaged. The patient's tube on the patient's right side was identified and tented up using a grasper, the ligasure apparatus was then used to come across the mesosalpingx from the fimbriated end to the insertion site at the uterus, the tube was then amputated and removed in its entirety. This was done on the contralateral side. The tubes were the removed from the patients abdomen. Excellent hemostasis was noted. The lateral ports were then moved under direct visualization with excellent hemostasis. All instruments were removed from the patient's abdomen. The fascia was closed using the #0 Vicryl on GI needle. The skin was closed using 4-0 Vicryl subcuticularly. All instruments were removed from the patient's vagina as well. The patient was taken out of the dorsal lithotomy position and placed in the supine position and taken to recovery in stable condition. Sponge, lap and needle counts were correct x2. Anesthesia: ELVIRA Surgeon: Chele Hendrix Offset Second Press Operator: Lexie Cat Estimated blood loss (mL): 5 Pathology: other (tubes) Condition: stable Disposition: PACU Urinary Catheter Management Urinary Catheter Management Urethral: Cath placed during this visit: no
== END 2025-04-29 17:08 | disposition home or self-care (01) ==
LOC: SURGOUT 10:57
PROVIDERS: Visit Provider Obstetrics & Gynecology
PROC: (CPT 840; principal; 2025-04-29 12:30)
DX: Z30.2 Encounter for sterilization (principal); N83.8 Other noninflammatory disorders of ovary, fallopian tube and broad ligament; J45.909 Unspecified asthma, uncomplicated
CPT/HCPCS: 58661; 36415; 84702; 85025; 88302; J1100; J1171; J1885; J2250; J2405; J2704; J3010